=== PATIENT | male | born 1955 | race Caucasian/White ===

== ENCOUNTER 2020-05-26 13:23 | Outpatient (REF) | payer OTHER, SELFPAY ==
[2020-05-26 14:09] LABS: MANUAL DIFF FLAG NO
[2020-05-26 14:15] LABS: Basophils Percent Auto 0.4 % (0-2); Eosinophils Absolute Auto 0.2 X10*3/uL (0.0-0.4); Eosinophils Percent Auto 4.1 % (0-4); Hematocrit 44.2 % (42-52); Hemoglobin 14.2 g/dl (14.0-18.0); Imm Gran Abs Auto 0.05 X10*3/uL (0.00-0.03); Imm Gran Pct Auto 0.9 % (0.0-0.4); Lymphocytes Absolute Auto 1.4 X10*3/uL (1.2-4.9); Mean Corpuscular HGB Conc 32.1 g/dl (31.0-36.0); Mean Corpuscular Hemoglobin 28.6 pg (27.0-33.0); Mean Corpuscular Volume 88.9 fL (80-98); Monocytes Absolute Auto 0.7 X10*3/uL (0.1-1.2); Neutrophils Absolute Auto 3.1 X10*3/uL (2.0-8.3); Neutrophils Percent Auto 56.6 % (45-73); Platelet Count 361 X10*3/uL (160-400); Red Blood Count 4.97 X10*6/uL (4.60-5.80); Red Cell Distribution Width 12.5 % (11.0-16.0); White Blood Count 5.4 X10*3/uL (4.8-10.8)
[2020-05-26 14:39] LABS: Alanine Aminotransferase 12 U/L (0-40); Albumin Level 3.9 g/dL (3.5-5.0); Alkaline Phosphatase 93 U/L (39-117); Anion Gap 12 (12-20); Aspartate Amino Transferase 14 U/L (5-37); Bilirubin Total 0.8 mg/dL (0.0-1.0); Blood Urea Nitrogen 13 mg/dL (9-16); Calcium 8.9 mg/dL (8.4-10.2); Carbon Dioxide 31 mmol/L (22-29); Chloride 106 mmol/L (96-108); Cholesterol 162 mg/dL; Estimated Glomerular Filt Rate > 60; Glucose Random 89 mg/dL (60-115); HDL Cholesterol 45 mg/dL; LDL Cholesterol Calculated 101 mg/dl; Sodium 144 mmol/L (135-145); Total Protein 6.2 g/dL (6.5-8.0); Triglycerides 83 mg/dL
== END 2020-05-26 13:24 | disposition home or self-care (01) ==
LOC: HO.LAB 13:23
PROVIDERS: Visit Provider Internal Medicine Medical Oncology
DX: Z00.00 Encounter for general adult medical examination without abnormal findings (principal); F32.9 Major depressive disorder, single episode, unspecified; E78.5 Hyperlipidemia, unspecified
CPT/HCPCS: 36415; 80053; 80061; 85025

== ENCOUNTER 2020-06-04 11:59 | Outpatient (REF) | payer OTHER, SELFPAY | END 2020-06-04 12:00 | disposition home or self-care (01) | LOC: HO.LAB 11:59 | PROVIDERS: Visit Provider Internal Medicine Medical Oncology | DX: Z20.822 Contact with and (suspected) exposure to COVID-19 (principal) | CPT/HCPCS: 36415; C9803; U0003; U0005 ==

== ENCOUNTER 2020-09-07 10:43 | Outpatient (REF) | payer OTHER, SELFPAY ==
[2020-09-07 12:12] LABS: MANUAL DIFF FLAG NO
[2020-09-07 12:22] LABS: Basophils Percent Auto 0.7 % (0-2); Eosinophils Absolute Auto 0.3 X10*3/uL (0.0-0.4); Eosinophils Percent Auto 5.1 % (0-4); Hematocrit 45.9 % (42-52); Imm Gran Abs Auto 0.06 X10*3/uL (0.00-0.03); Lymphocytes Absolute Auto 1.6 X10*3/uL (1.2-4.9); Lymphocytes Percent Auto 26.5 % (20-40); Mean Corpuscular HGB Conc 32.7 g/dl (31.0-36.0); Mean Corpuscular Hemoglobin 29.4 pg (27.0-33.0); Mean Corpuscular Volume 89.8 fL (80-98); Mean Platelet Volume 10.4 fL (9.4-12.4); Monocytes Absolute Auto 0.7 X10*3/uL (0.1-1.2); Monocytes Percent Auto 10.6 % (2-11); Neutrophils Absolute Auto 3.4 X10*3/uL (2.0-8.3); Neutrophils Percent Auto 56.1 % (45-73); Platelet Count 297 X10*3/uL (160-400); Red Blood Count 5.11 X10*6/uL (4.60-5.80); White Blood Count 6.1 X10*3/uL (4.8-10.8)
[2020-09-07 12:52] LABS: Alanine Aminotransferase 18 U/L (0-40); Albumin Level 4.1 g/dL (3.5-5.0); Alkaline Phosphatase 69 U/L (39-117); Anion Gap 11 (12-20); Aspartate Amino Transferase 23 U/L (5-37); Bilirubin Total 0.5 mg/dL (0.0-1.0); Blood Urea Nitrogen 14 mg/dL (9-16); Calcium 9.1 mg/dL (8.4-10.2); Carbon Dioxide 30 mmol/L (22-29); Chloride 105 mmol/L (96-108); Cholesterol 211 mg/dL; Estimated Glomerular Filt Rate > 60; Glucose Fasting 81 mg/dL (60-99); HDL Cholesterol 60 mg/dL; LDL Cholesterol Calculated 132 mg/dl; Potassium 4.6 mmol/L (3.3-5.1); Sodium 141 mmol/L (135-145); Total Protein 6.1 g/dL (6.5-8.0); Triglycerides 98 mg/dL
[2020-09-07 13:10] LABS: Prostate Specific Antigen 5.45 ng/mL (<0.05-4.0)
== END 2020-09-07 10:44 | disposition home or self-care (01) ==
LOC: HO.LAB 10:43
PROVIDERS: PCP Internal Medicine Medical Oncology; Visit Provider Internal Medicine Medical Oncology
DX: R97.20 Elevated prostate specific antigen [PSA] (principal); E78.5 Hyperlipidemia, unspecified; Z12.5 Encounter for screening for malignant neoplasm of prostate
CPT/HCPCS: 36415; 80053; 80061; 84153; 85025

== ENCOUNTER 2021-09-11 08:59 | Outpatient (REF) | payer MEDICARE, SELFPAY ==
[2021-09-11 09:14] LABS: MANUAL DIFF FLAG NO
[2021-09-11 09:47] LABS: Basophils Absolute Auto 0.1 X10*3/uL (0.0-0.2); Basophils Percent Auto 0.9 % (0-2); Eosinophils Absolute Auto 0.4 X10*3/uL (0.0-0.4); Eosinophils Percent Auto 6.7 % (0-4); Hemoglobin 13.7 g/dl (14.0-18.0); Imm Gran Abs Auto 0.02 X10*3/uL (0.00-0.03); Imm Gran Pct Auto 0.4 % (0.0-0.4); Lymphocytes Absolute Auto 1.5 X10*3/uL (1.2-4.9); Lymphocytes Percent Auto 28.3 % (20-40); Mean Corpuscular HGB Conc 32.6 g/dl (31.0-36.0); Mean Corpuscular Hemoglobin 28.8 pg (27.0-33.0); Mean Corpuscular Volume 88.2 fL (80.0-98.0); Mean Platelet Volume 10.4 fL (9.4-12.4); Monocytes Absolute Auto 0.5 X10*3/uL (0.1-1.2); Monocytes Percent Auto 9.8 % (2-11); Neutrophils Absolute Auto 2.9 x10*3/uL (2.0-8.3); Neutrophils Percent Auto 53.9 % (45-73); Platelet Count 198 X10*3/uL (160-400); Red Blood Count 4.76 X10*6/uL (4.60-5.80); Red Cell Distribution Width 13.2 % (11.0-16.0); White Blood Count 5.4 X10*3/uL (4.8-10.8)
[2021-09-11 10:17] LABS: Alanine Aminotransferase 11 U/L (0-40); Albumin Level 3.9 g/dL (3.5-5.0); Alkaline Phosphatase 63 U/L (39-117); Anion Gap 11 (12-20); Aspartate Amino Transferase 14 U/L (5-37); Bilirubin Total 0.6 mg/dL (0.0-1.0); Blood Urea Nitrogen 11 mg/dL (9-16); Calcium 9.2 mg/dL (8.4-10.2); Carbon Dioxide 26 mmol/L (22-29); Chloride 106 mmol/L (96-108); Cholesterol 210 mg/dL; Estimated Glomerular Filt Rate > 60; Glucose Random 86 mg/dL (60-115); HDL Cholesterol 58 mg/dL; LDL Cholesterol Calculated 137 mg/dl; Potassium 4.1 mmol/L (3.3-5.1); Sodium 139 mmol/L (135-145); Total Protein 6.1 g/dL (6.5-8.0); Triglycerides 77 mg/dL
[2021-09-11 10:43] LABS: Prostate Specific Antigen 5.39 ng/mL (<0.05-4.0)
== END 2021-09-11 09:00 | disposition home or self-care (01) ==
LOC: HO.LAB 08:59
PROVIDERS: PCP Internal Medicine Medical Oncology; Visit Provider Internal Medicine Medical Oncology
DX: Z12.5 Encounter for screening for malignant neoplasm of prostate (principal); E78.5 Hyperlipidemia, unspecified
CPT/HCPCS: 36415; 80053; 80061; 84153; 85025

== ENCOUNTER 2022-02-22 08:22 | Outpatient (REF) | payer MEDICARE, SELFPAY ==
[2022-02-22 11:23] LABS: PSA,Total (Free>4and<10) 5.65 ng/mL (0.00-4.00)
[2022-02-23 11:11] LABS: Percent Free Prostate Spec Ag 23 % (calc) (>25); Prostate Specific Ag Total 4.4 ng/mL (< OR = 4.0)
== END 2022-02-22 08:23 | disposition home or self-care (01) ==
LOC: HO.10HDL 08:22
PROVIDERS: Visit Provider Internal Medicine Medical Oncology
DX: Z00.00 Encounter for general adult medical examination without abnormal findings (principal); Z12.5 Encounter for screening for malignant neoplasm of prostate
CPT/HCPCS: 36415; 84153; 84154

== ENCOUNTER 2022-09-07 08:27 | Outpatient (REF) | payer MEDICARE, SELFPAY ==
[2022-09-07 08:41] LABS: MANUAL DIFF FLAG NO
[2022-09-07 08:51] LABS: Basophils Percent Auto 0.7 % (0-2); Eosinophils Absolute Auto 0.3 X10*3/uL (0.0-0.4); Eosinophils Percent Auto 4.7 % (0-4); Hematocrit 43.6 % (42.0-52.0); Hemoglobin 14.3 g/dl (14.0-18.0); Imm Gran Abs Auto 0.02 X10*3/uL (0.00-0.03); Imm Gran Pct Auto 0.4 % (0.0-0.4); Lymphocytes Absolute Auto 1.6 X10*3/uL (1.2-4.9); Lymphocytes Percent Auto 29.9 % (20-40); Mean Corpuscular HGB Conc 32.8 g/dl (31.0-36.0); Mean Corpuscular Hemoglobin 29.2 pg (27.0-33.0); Mean Corpuscular Volume 89.2 fL (80.0-98.0); Mean Platelet Volume 10.2 fL (9.4-12.4); Monocytes Absolute Auto 0.6 X10*3/uL (0.1-1.2); Monocytes Percent Auto 11.8 % (2-11); Neutrophils Absolute Auto 2.8 x10*3/uL (2.0-8.3); Neutrophils Percent Auto 52.5 % (45-73); Platelet Count 196 X10*3/uL (160-400); Red Blood Count 4.89 X10*6/uL (4.60-5.80); Red Cell Distribution Width 13.6 % (11.0-16.0); White Blood Count 5.4 X10*3/uL (4.8-10.8)
[2022-09-07 09:36] LABS: Alanine Aminotransferase 13 U/L (0-40); Albumin Level 3.8 g/dL (3.5-5.0); Alkaline Phosphatase 70 U/L (39-117); Anion Gap 10 (12-20); Aspartate Amino Transferase 16 U/L (5-37); Bilirubin Total 0.8 mg/dL (0.0-1.0); Blood Urea Nitrogen 14 mg/dL (9-16); Calcium 8.7 mg/dL (8.4-10.2); Carbon Dioxide 27 mmol/L (22-29); Chloride 108 mmol/L (96-108); Cholesterol 202 mg/dL; Estimated Glomerular Filt Rate 59; Glucose Fasting 86 mg/dL (60-99); HDL Cholesterol 55 mg/dL; LDL Cholesterol Calculated 132 mg/dl; Potassium 4.3 mmol/L (3.3-5.1); Sodium 141 mmol/L (135-145); Total Protein 5.8 g/dL (6.5-8.0); Triglycerides 77 mg/dL
[2022-09-08 12:59] LABS: Free Prostate Spec Ag 1.3 ng/mL; Percent Free Prostate Spec Ag 30 % (calc) (>25); Prostate Specific Ag Total 4.4 ng/mL (< OR = 4.0)
== END 2022-09-07 08:28 | disposition home or self-care (01) ==
LOC: HO.LAB 08:27
PROVIDERS: PCP Internal Medicine Medical Oncology; Visit Provider Internal Medicine Medical Oncology
DX: Z12.5 Encounter for screening for malignant neoplasm of prostate (principal); R97.20 Elevated prostate specific antigen [PSA]; E78.5 Hyperlipidemia, unspecified
CPT/HCPCS: 36415; 80053; 80061; 84154; 85025

== ENCOUNTER → 2022-09-19 10:03 | Outpatient (BNVA) | payer MEDICARE, SELFPAY | PROVIDERS: PCP Internal Medicine Medical Oncology; Visit Provider Nurse Practitioner Family | DX: N52.9 Male erectile dysfunction, unspecified (principal); R35.0 Frequency of micturition; R35.1 Nocturia | CPT/HCPCS: 51798; 99202 ==

== ENCOUNTER 2022-11-08 09:59 | Outpatient (REF) | payer MEDICARE, SELFPAY ==
--- NOTE | ~2022-11-08 | US_ITS ---
EXAMINATION: US RETROPERITONEAL COMPLETE (RENAL) CLINICAL INFORMATION: Nocturia. COMPARISON: None available. TECHNIQUE: Real-time imaging of the kidneys and bladder. FINDINGS: RIGHT KIDNEY: 10.5 x 3.8 x 4.0 cm (SAG x AP x TRV). The kidney is normal in size, contour, and echogenicity. Renal cortical thickness is normal. No calculi or focal parenchymal lesions. No hydronephrosis. LEFT KIDNEY: 10.0 x 4.7 x 4.8 cm (SAG x AP x TRV). The kidney is normal in size, contour, and echogenicity. Renal cortical thickness is normal. No calculi or focal parenchymal lesions. No hydronephrosis. BLADDER: Diffuse wall thickening with trabeculations. Bilateral ureteral jets are demonstrated. Prevoid bladder volume is 249 mL. Postvoid bladder volume is 95.2 mL. ADDITIONAL FINDINGS: Enlarged prostate, volume of 91.4 mL. US/US retroperitoneal comp IMPRESSION: 1. No nephrolithiasis or hydronephrosis. 2. Diffuse bladder wall thickening with trabeculations, likely related with outlet obstruction in the setting of prostatomegaly. Correlation with urinalysis could be obtained as clinically indicated. 3. Increased post void residual volume in the urinary bladder, suggesting chronic outlet obstruction. 4. Enlarged prostate.
== END 2022-11-08 10:00 | disposition home or self-care (01) ==
LOC: HO.US 09:59
PROVIDERS: PCP Internal Medicine Medical Oncology; Visit Provider Nurse Practitioner Family
DX: R35.1 Nocturia (principal); R35.0 Frequency of micturition
CPT/HCPCS: 76770

== ENCOUNTER 2022-12-01 15:35 | Outpatient (AMB) | payer MEDICARE, SELFPAY ==
--- NOTE | 2022-12-01 15:36 | MHC.OFFVIS ---
Intake Intake Visit Reasons: 6w/US(set) Intake Note: Patient presents for follow up visit BPH/Erectile Dysfunction/ultrasound (imaging 11/08) Urology Medications: d/c terazosin, cialis, finasteride Blood Thinner: none PVR: 0ml's Media Professional Required: No Accompanied by: Self / Same As Patient Allergies amoxicillin [Amoxicillin] Allergy (Mild, Unverified 12/01/22 20:39) RASH Medication List - Last Reconciled 12/01/22 by RONNA Ponce- bupropion HCl 100 mg PO BID finasteride 5 mg PO DAILY 90 days tadalafil (Cialis) 20 mg PO DAILY PRN 90 days tadalafil (Cialis) 5 mg PO DAILY 90 days HPI HPI Comments History of Present Illness Details Og is a pleasant 67-year-old male patient of Dr. Aranda. He presents to the office today for follow-up. Of note, patient was seen approximately 2 months ago as a new patient for erectile dysfunction the and urinary issues at which time a retroperitoneal ultrasound was ordered for further assessment evaluation in the patient was started on 5 mg of Cialis daily as well as a prescription provided for p.r.n. Cialis on demand 1 hour prior to sexual activity. In discussion with the patient today reports to be doing and feeling well. Recent retroperitoneal ultrasound results reviewed with the patient today. Bilateral kidneys with no calculi, lesions, or hydronephrosis noted. Diffuse wall thickening with trabeculations noted to the bladder. Pre void bladder volume is approximately 250 mL. Postvoid bladder volume is approximately 95 mL. Enlarged prostate with a volume of 91 mL. PSAs are as follows... 09/04--5.5 09/05--5.4 03/08--5.7 03/08--4.4 percent free PSA 23% 09/06--4.4 percent free PSA 30% Discussed at length potential causes for elevated PSA. When asked patient denies any known family history of prostate cancer. Will continue with finasteride 5 mg daily. He discusses upcoming trip to [facility] 02/28. He he was previously on terazosin at 2 mg and increase to 5 mg to assist with lower urinary tract symptoms however did not find this helpful at which time terazosin was discontinued and the patient is now on low-dose 5 mg of Cialis daily. He does report ongoing issues with lower urinary tract symptoms however finds symptoms to be intermittent and at times not bothersome. He otherwise denies urinary urgency, incontinence, hematuria, dysuria, foul smelling urine, changes to urinary stream, flank pain, fever, and or chills. In office urinalysis results reviewed with the patient today. PVR 0 mL. He discusses residential and going down to [place] frequently as he has a boat there. He otherwise denies any issues or concerns at this time. Review of Systems Const All systems reviewed & are unremarkable except as noted in HPI and below Eyes Reports no additional complaints ENT Reports no additional complaints Card Reports no additional complaints Resp Reports no additional complaints GI Reports no additional complaints Reports as per HPI Musc Reports no additional complaints Neuro Reports no additional complaints Psych Reports no additional complaints Endo Reports no additional complaints Asael/Lymph Reports no additional complaints Aller/Immun Reports no additional complaints Physical Exam Const General: cooperative, healthy appearing, comfortable, no acute distress, well developed, alert and awake Nutritional Appearance: average body habitus Orientation/consciousness: patient oriented x3 Limitations: no limitations HEENT Head: Yes normal to inspection, Yes normocephalic and Yes atraumatic Ears: hearing grossly normal bilaterally Eyes General: appearance normal, both eyes and all related structures Neck Neck: Yes normal visual inspection and Yes trachea midline Chest Chest palpation & inspection: normal inspection of the chest Resp Effort & Inspection: normal respiratory effort and able to speak in complete sentences Cardio Rate: regular rate GI Inspection: Yes normal to inspection General: Yes no CVA tenderness Back/Spine/Pelvis Back: no CVA tenderness Skin General skin exam: no rashes or lesions noted Neuro General: patient oriented x3 Extrem General: Yes normal to inspection Psych Appearance: grossly normal and well kempt Mental Status: mental status grossly normal Speech and movement: Normal speech and movement present and Clear speech present Affect: normal affect Attitude: cooperative Thought process: Normal thought process present Thought content: Normal thought content present Insight: Good insight present (Psych) Judgement: Good judgement present (Psych) Office Procedures Post Void Residual Post Residual Void Post Void Residual (PVR): 0 [id number]-[id number] Void Residual by ultrasound Results AMB Urinalysis, Automated UA Leukoctes 15 Judson/uL Last Edit by Ben Hackett on 12/01/22 15:52 UA Nitrite Last Edit by Ben Hackett on 12/01/22 15:52 UA Urobilinogen 0.2 mg/dL Last Edit by Monford [employer] System[employer] on 12/01/22 15:52 UA Protein 15 mg/dL Last Edit by [employer] on 12/01/22 15:52 UA pH 6.0 Last Edit by PERORAe Propellernixon on 12/01/22 15:52 UA Blood 0 Sam/uL Last Edit by PERORAe Propellernixon on 12/01/22 15:52 UA Specific [place] 1.030 Last Edit by [employer] on 12/01/22 15:52 UA Ketone Last Edit by Deolan on 12/01/22 15:52 UA Bilirubin 0 mg/dL Last Edit by [employer] on 12/01/22 15:52 UA Glucose 0 mg/dL Last Edit by [employer] on 12/01/22 15:52 Results Reviewed Results Reviewed: Laboratory Last Values Urine pH (Auto) 6.0 12/01/22 15:38 Specific [place] (Auto) 1.030 12/01/22 15:38 Urine Protein (Auto) 15 mg/dL 12/01/22 15:38 Glucose (UA)(Auto) 0 mg/dL 12/01/22 15:38 Urine Blood (Auto) 0 Sam/uL 12/01/22 15:38 Urine Bilirubin (Auto) 0 mg/dL 12/01/22 15:38 Urine Urobilinogen (Auto) 0.2 mg/dL 12/01/22 15:38 Leukocyte Esterase (Auto) 15 Judson/uL 12/01/22 15:38 Date of Service: 11/08/22 EXAMINATION: US RETROPERITONEAL COMPLETE (RENAL) FINDINGS: RIGHT KIDNEY: 10.5 x 3.8 x 4.0 cm (SAG x AP x TRV). The kidney is normal in size, contour, and echogenicity. Renal cortical thickness is normal. No calculi or focal parenchymal lesions. No hydronephrosis. LEFT KIDNEY: 10.0 x 4.7 x 4.8 cm (SAG x AP x TRV). The kidney is normal in size, contour, and echogenicity. Renal cortical thickness is normal. No calculi or focal parenchymal lesions. No hydronephrosis. BLADDER: Diffuse wall thickening with trabeculations. Bilateral ureteral jets are demonstrated. Prevoid bladder volume is 249 mL. Postvoid bladder volume is 95.2 mL. ADDITIONAL FINDINGS: Enlarged prostate, volume of 91.4 mL. IMPRESSION: 1.? No nephrolithiasis or hydronephrosis. 2.? Diffuse bladder wall thickening with trabeculations, likely related with outlet obstruction in the setting of prostatomegaly. Correlation with urinalysis could be obtained as clinically indicated. 3.? Increased post void residual volume in the urinary bladder, suggesting chronic outlet obstruction. 4.? Enlarged prostate. Assessment & Plan Assessment & Plan (1) Elevated PSA: Code(s): R97.20 - Elevated prostate specific antigen [PSA] (2) Enlarged prostate: Code(s): N40.0 - Benign prostatic hyperplasia without lower urinary tract symptoms (3) Lower urinary tract symptoms: Code(s): R39.9 - Unspecified symptoms and signs involving the genitourinary system (4) Erectile dysfunction: Code(s): N52.9 - Male erectile dysfunction, unspecified (5) Nocturia: Code(s): R35.1 - Nocturia (6) Bladder wall thickening: Code(s): N32.89 - Other specified disorders of bladder Plan In office urinalysis results reviewed with the patient today; as noted above. PVR 0 mL. Continue 5 mg of Cialis daily and p.r.n. for sexual activity; refills provided. Will obtain PSA in 3 months for further assessment evaluation. Continue finasteride 5 mg daily as discussed and prescribed. Discussed near future in office cystoscopy if symptoms persist and/or worsen. Discussed bladder triggers/irritants. Discussed limiting fluids 3-4 hours prior to bed to assist with decreasing episodes of nocturia. Follow-up in 3 months with lab to be completed prior; or sooner with any issues, concerns, and or questions. Orders: Orders Prostate Specific Antigen 3 Months R97.20 - Elevated prostate specific antigen [PSA] AMB Urinalysis Automated Today Z13.9 - Encounter for screening, unspecified AMB Post Void Residual by ultrasound Today R35.0 - Frequency of micturition Medications: Refilled tadalafil (Cialis) administer approximately 30-60 min before sexual activity; do not use more than 1 dose per 24hrs [facility] DRBrenden [id number] 20 mg PO DAILY PRN 20 tabs 3RF sexual activity 90 days tadalafil (Cialis) DONI N Group [facility] DR33 [id number] 5 mg PO DAILY 90 tabs 3RF 90 days Patient Instructions: The patient had an opportunity to ask questions regarding the treatment plan. All questions were answered. Physical exam, labs, and imaging were discussed and reviewed in detail. As well as risks, benefits, and discussion of treatment choices. No major barriers to understanding were identified. The patient expressed understanding and agreement with the above treatment plan. The patient was made aware they should contact our office by phone for worsening of their current condition, the appearance of new symptoms, or with any questions or concerns. Compliance is encouraged with any medications and follow up testing that is ordered. It is a privilege to be allowed the opportunity to participate in? your urological care.? Again, if you have any questions or concerns If you have any questions or concerns please do not hesitate to contact me. The office is [phone]. This note is constructed using voice recognition software. While every effort has been made to ensure accuracy feature writer errors may have been included. Yours sincerely, ANTHONY Ponce Coding Level of Care Code Est Pt Level 3 (58156) Diagnoses Elevated PSA R97.20 Enlarged prostate N40.0 Lower urinary tract symptoms R39.9 Erectile dysfunction N52.9 Nocturia R35.1 Bladder wall thickening N32.89 CPT Codes Post Residual Void - PVR CPT Code: 96356-Lvhh Void Residual by ultrasound ([id number])
== END 2022-12-01 16:22 | disposition home or self-care (01) ==
PROVIDERS: PCP Internal Medicine Medical Oncology; Visit Provider Nurse Practitioner Family
DX: R97.20 Elevated prostate specific antigen [PSA] (principal); N40.0 Benign prostatic hyperplasia without lower urinary tract symptoms; R39.9 Unspecified symptoms and signs involving the genitourinary system; N52.9 Male erectile dysfunction, unspecified; R35.1 Nocturia; N32.89 Other specified disorders of bladder
CPT/HCPCS: 99213

== ENCOUNTER → 2022-12-01 15:35 | Outpatient (BNVA) | payer MEDICARE, SELFPAY | PROVIDERS: PCP Internal Medicine Medical Oncology; Visit Provider Nurse Practitioner Family | DX: N52.9 Male erectile dysfunction, unspecified (principal); N40.0 Benign prostatic hyperplasia without lower urinary tract symptoms; N32.89 Other specified disorders of bladder; R97.20 Elevated prostate specific antigen [PSA]; R39.9 Unspecified symptoms and signs involving the genitourinary system; R35.1 Nocturia | CPT/HCPCS: 51798; 81003; 99212 ==

== ENCOUNTER 2023-02-16 09:15 | Outpatient (REF) | payer MEDICARE, SELFPAY ==
[2023-02-16 10:27] LABS: Prostate Specific Antigen 3.19 ng/mL (<0.05-4.0)
== END 2023-02-16 09:16 | disposition home or self-care (01) ==
LOC: HO.LAB 09:15
PROVIDERS: PCP Internal Medicine Medical Oncology; Visit Provider Nurse Practitioner Family
DX: R97.20 Elevated prostate specific antigen [PSA] (principal); Z12.5 Encounter for screening for malignant neoplasm of prostate
CPT/HCPCS: 36415; 84153

== ENCOUNTER 2023-02-17 15:33 | Outpatient (AMB) | payer MEDICARE, SELFPAY ==
--- NOTE | 2023-02-17 15:45 | A.OFFVIS_ITS ---
Intake Intake Visit Reasons: follow up/PSA Intake Note: Patient is Present for Follow Up PSA/PVR Urology Medication: Finasteride, Tadalafil Antibiotic Allergies: Amoxicillin Blood Thinners: None Pharmacy: [facility] PVR: 0ml Allergies amoxicillin [Amoxicillin] Allergy (Mild, Verified 02/17/23 15:57) RASH Medication List - Last Reconciled 02/17/23 by RONNA Ponce- bupropion HCl 100 mg PO BID finasteride 5 mg PO DAILY 90 days tadalafil (Cialis) 5 mg PO DAILY 90 days tadalafil (Cialis) 20 mg PO DAILY PRN 90 days HPI HPI Comments History of Present Illness Details Og is a pleasant 67-year-old male patient of Dr. Aranda. He presents to the office today for follow-up his elevated PSA. In discussion with the patient today he reports to be doing and feeling well. He discusses at length his upcoming trip to [facility] for the next 6 months. Recent PSA results reviewed with the patient today as noted below. Previous workup has included a retroperitoneal ultrasound noting bilateral kidneys with no calculi, lesions, or hydronephrosis noted. Diffuse wall thickening with trabeculations noted to the bladder. Pre void bladder volume is approximately 250 mL. Postvoid bladder volume is approximately 95 mL. Enlarged prostate with a volume of 91 mL. 09/04--5.5 09/05--5.4 03/08--5.7 03/08--4.4 percent free PSA 23% 09/06--4.4 percent free PSA 30% 03/09--3.2 When asked patient reports compliance with finasteride 5 mg daily. He currently denies any bothersome urinary issues or concerns. He denies urinary urgency, incontinence, hematuria, dysuria, foul smelling urine, changes to urinary stream, flank pain, fever, and or chills. In office urinalysis results reviewed with the patient today. PVR 0 mL. He otherwise denies any issues or concerns at this time. Review of Systems Const All systems reviewed & are unremarkable except as noted in HPI and below Eyes Reports no additional complaints ENT Reports no additional complaints Card Reports no additional complaints Resp Reports no additional complaints GI Reports no additional complaints Reports as per HPI Musc Reports no additional complaints Neuro Reports no additional complaints Psych Reports no additional complaints Endo Reports no additional complaints Asael/Lymph Reports no additional complaints Aller/Immun Reports no additional complaints Physical Exam Const General: cooperative, healthy appearing, comfortable, no acute distress, well developed, alert and awake Nutritional Appearance: average body habitus Orientation/consciousness: patient oriented x3 Limitations: no limitations HEENT Head: Yes normal to inspection, Yes normocephalic and Yes atraumatic Ears: hearing grossly normal bilaterally Eyes General: appearance normal, both eyes and all related structures Neck Neck: Yes normal visual inspection and Yes trachea midline Chest Chest palpation & inspection: normal inspection of the chest Resp Effort & Inspection: normal respiratory effort and able to speak in complete sentences Cardio Rate: regular rate GI Inspection: Yes normal to inspection General: Yes no CVA tenderness Back/Spine/Pelvis Back: no CVA tenderness Skin General skin exam: no rashes or lesions noted Neuro General: patient oriented x3 Extrem General: Yes normal to inspection Psych Appearance: grossly normal and well kempt Mental Status: mental status grossly normal Speech and movement: Normal speech and movement present and Clear speech present Affect: normal affect Attitude: cooperative Thought process: Normal thought process present Thought content: Normal thought content present Insight: Good insight present (Psych) Judgement: Good judgement present (Psych) Office Procedures Post Void Residual Post Residual Void Post Void Residual (PVR): 0 [id number]-[id number] Void Residual by ultrasound Results AMB Urinalysis, Automated UA Leukoctes 70 Judson/uL Last Edit by ARPITA Crenshaw on 02/17/23 15:56 UA Nitrite Negative Last Edit by Za Siddiqui [facility] on 02/17/23 15:56 UA Urobilinogen 0.2 mg/dL Last Edit by ARPITA Crenshaw on 02/17/23 15:5 6 UA Protein 0 mg/dL Last Edit by Za Siddiqui [facility] on 02/17/23 15:56 UA pH 6.0 Last Edit by ARPITA Crenshaw on 02/17/23 15:56 UA Blood 0 Sam/uL Last Edit by Za Siddiqui [facility] on 02/17/23 15:56 UA Specific [place] 1.030 Last Edit by MIGUEL Crenshaw on 02/17/23 15: 56 UA Ketone Negative Last Edit by MIGUEL Crenshaw on 02/17/23 15:56 UA Bilirubin 0 mg/dL Last Edit by ARPITA Crenshaw on 02/17/23 15:56 UA Glucose 0 mg/dL Last Edit by ARPITA Crenshaw on 02/17/23 15:56 Results Reviewed Results Reviewed: Laboratory Last Values Urine pH (Auto) 6.0 02/17/23 15:49 Specific [place] (Auto) 1.030 02/17/23 15:49 Urine Protein (Auto) 0 mg/dL 02/17/23 15:49 Glucose (UA)(Auto) 0 mg/dL 02/17/23 15:49 Urine Ketones (Auto) Negative 02/17/23 15:49 Urine Blood (Auto) 0 Sam/uL 02/17/23 15:49 Urine Nitrite (Auto) Negative 02/17/23 15:49 Urine Bilirubin (Auto) 0 mg/dL 02/17/23 15:49 Urine Urobilinogen (Auto) 0.2 mg/dL 02/17/23 15:49 Leukocyte Esterase (Auto) 70 Judson/uL 02/17/23 15:49 Assessment & Plan Assessment & Plan (1) Bladder wall thickening: Code(s): N32.89 - Other specified disorders of bladder (2) Enlarged prostate: Code(s): N40.0 - Benign prostatic hyperplasia without lower urinary tract symptoms (3) Elevated PSA: Code(s): R97.20 - Elevated prostate specific antigen [PSA] (4) Erectile dysfunction: Code(s): N52.9 - Male erectile dysfunction, unspecified Plan In office urinalysis results reviewed with the patient today; as noted above. PVR 0 mL. Continue finasteride 5 mg daily as discussed and prescribed. Refills on urological medications provided. Patient denies any bothersome urinary issues or concerns at this time. Recent PSA results reviewed with the patient today. Educated, encouraged, instructed on the importance of drinking plenty of water daily. Will obtain PSA in 6 months Follow-up with labs to be completed prior; once back from [facility] with PSA; or sooner with any issues, concerns, and or questions. Orders: Orders AMB Urinalysis Automated Today Z13.9 - Encounter for screening, unspecified Prostate Specific Antigen 6 Months N52.9 - Male erectile dysfunction, unspecified, R97.20 - Elevated prostate specific antigen [PSA] AMB Post Void Residual by ultrasound Today R39.9 - Unspecified symptoms and signs involving the genitourinary system Medications: Refilled tadalafil (Cialis) administer approximately 30-60 min before sexual activity; do not use more than 1 dose per 24hrs [facility] Group [facility] DR33 [id number] 20 mg PO DAILY PRN 20 tabs 3RF sexual activity 90 days finasteride 5 mg PO DAILY 90 tabs 3RF 90 days N13.8 - Other obstructive and reflux uropathy, N40.1 - Benign prostatic hyperplasia with lower urinary tract s ymptoms, R33.9 - Retention of urine, unspecified tadalafil (Cialis) [facility] Group [facility] DR33 [id number] 5 mg PO DAILY 90 tabs 3RF 90 days Patient Instructions: The patient had an opportunity to ask questions regarding the treatment plan. All questions were answered. Physical exam, labs, and imaging were discussed and reviewed in detail. As well as risks, benefits, and discussion of treatment choices. No major barriers to understanding were identified. The patient expres sed understanding and agreement with the above treatment plan. The patient was made aware they should contact our office by phone for worsening of their current condition, the appearance of new symptoms, or with any questions or concerns. Compliance is encouraged with any medications and follow up testing that is ordered. It is a privilege to be allowed the opportunity to participate in? your urological care.? Again, if you have any questions or concerns If you have any questions or concerns please do not hesitate to contact me. The office is [phone]. This note is constructed using voice recognition software. While every effort has been made to ensure accuracy forest resources professor errors may have been included. Yours sincerely, ANTHONY Ponce Coding Level of Care Code Est Pt Level 3 (86415) Diagnoses Bladder wall thickening N32.89 Enlarged prostate N40.0 Elevated PSA R97.20 Erectile dysfunction N52.9 CPT Codes Post Residual Void - PVR CPT Code: 40011-Gnmx Void Residual by ultrasound ([id number])
== END 2023-02-17 16:22 | disposition home or self-care (01) ==
PROVIDERS: PCP Internal Medicine Medical Oncology; Visit Provider Nurse Practitioner Family
DX: N32.89 Other specified disorders of bladder (principal); N40.0 Benign prostatic hyperplasia without lower urinary tract symptoms; R97.20 Elevated prostate specific antigen [PSA]; N52.9 Male erectile dysfunction, unspecified; Z13.9 Encounter for screening, unspecified
CPT/HCPCS: 99213

== ENCOUNTER → 2023-02-17 15:33 | Outpatient (BNVA) | payer MEDICARE, SELFPAY | PROVIDERS: PCP Internal Medicine Medical Oncology; Visit Provider Nurse Practitioner Family | DX: N32.89 Other specified disorders of bladder (principal); N40.0 Benign prostatic hyperplasia without lower urinary tract symptoms; N52.9 Male erectile dysfunction, unspecified; R97.20 Elevated prostate specific antigen [PSA] | CPT/HCPCS: 51798; 81003; 99212 ==

== ENCOUNTER 2023-09-12 10:33 | Outpatient (REF) | payer MEDICARE, SELFPAY ==
[2023-09-12 10:53] LABS: MANUAL DIFF FLAG NO
[2023-09-12 11:06] LABS: Basophils Absolute Auto 0.1 X10*3/uL (0.0-0.2); Basophils Percent Auto 0.9 % (0-2); Eosinophils Absolute Auto 0.6 X10*3/uL (0.0-0.4); Eosinophils Percent Auto 9.1 % (0-4); Hematocrit 45.1 % (42.0-52.0); Imm Gran Abs Auto 0.03 X10*3/uL (0.00-0.03); Imm Gran Pct Auto 0.5 % (0.0-0.4); Lymphocytes Absolute Auto 1.6 X10*3/uL (1.2-4.9); Lymphocytes Percent Auto 24.5 % (20-40); Mean Corpuscular HGB Conc 33.3 g/dl (31.0-36.0); Mean Corpuscular Hemoglobin 29.1 pg (27.0-33.0); Mean Corpuscular Volume 87.6 fL (80.0-98.0); Mean Platelet Volume 9.7 fL (9.4-12.4); Monocytes Absolute Auto 0.7 X10*3/uL (0.1-1.2); Monocytes Percent Auto 10.8 % (2-11); Neutrophils Absolute Auto 3.5 x10*3/uL (2.0-8.3); Neutrophils Percent Auto 54.2 % (45-73); Platelet Count 206 X10*3/uL (160-400); Red Blood Count 5.15 X10*6/uL (4.60-5.80); Red Cell Distribution Width 13.5 % (11.0-16.0); White Blood Count 6.5 X10*3/uL (4.8-10.8)
[2023-09-12 11:37] LABS: Alanine Aminotransferase 16 U/L (0-40); Alkaline Phosphatase 70 U/L (39-117); Anion Gap 10 (12-20); Aspartate Amino Transferase 17 U/L (5-37); Bilirubin Total 0.7 mg/dL (0.0-1.0); Blood Urea Nitrogen 10 mg/dL (9-16); Calcium 9.3 mg/dL (8.4-10.2); Carbon Dioxide 30 mmol/L (22-29); Chloride 106 mmol/L (96-108); Cholesterol 224 mg/dL (<200); Estimated Glomerular Filt Rate > 60; Glucose Fasting 84 mg/dL (60-99); HDL Cholesterol 67 mg/dL (>40); LDL Cholesterol Calculated 143 mg/dL (<100); Potassium 4.8 mmol/L (3.3-5.1); Sodium 141 mmol/L (135-145); Total Protein 6.4 g/dL (6.5-8.0); Triglycerides 71 mg/dL (<150)
[2023-09-12 11:57] LABS: Prostate Specific Antigen 3.09 ng/mL (<0.05-4.0)
== END 2023-09-12 10:34 | disposition home or self-care (01) ==
LOC: HO.LAB 10:33
PROVIDERS: PCP Internal Medicine Medical Oncology; Visit Provider Internal Medicine Medical Oncology
DX: Z12.5 Encounter for screening for malignant neoplasm of prostate (principal); N40.0 Benign prostatic hyperplasia without lower urinary tract symptoms; E78.5 Hyperlipidemia, unspecified
CPT/HCPCS: 36415; 80053; 80061; 84153; 85025

== ENCOUNTER 2023-09-19 13:32 | Outpatient (AMB) | payer MEDICARE, SELFPAY ==
--- NOTE | 2023-09-19 13:38 | MHC.OFFVIS ---
Intake Visit Reasons: 7m/PSA Intake Note: Patient is Present for Follow Up PSA/PVR PSA: 3.09 Urology Medication: Finasteride, Tadalafil Antibiotic Allergies: Amoxicillin Blood Thinners: None Pharmacy: [facility] PVR: 31ml's Software Tools Developer Required: No Accompanied by: Self / Same As Patient Allergies amoxicillin [Amoxicillin] Allergy (Mild, Verified 09/19/23 22:04) RASH Medication List - Last Reconciled 09/19/23 by ANTHONY Ponce bupropion HCl 100 mg PO BID finasteride 5 mg PO DAILY 90 days tadalafil (Cialis) 5 mg PO DAILY 90 days tadalafil (Cialis) 20 mg PO DAILY PRN 90 days HPI Comments Details: Og is a pleasant 67-year-old male patient of Dr. Aranda. He presents to the office today for follow-up his elevated PSA and erectile dysfunction. In discussion with the patient today he reports to be doing and feeling well. He discusses at length his recent travel to [facility] as well as [facility]. He discusses having experienced episodes of erectile dysfunction while on vacation despite daily Cialis with on demand dosing. He reports at times he was unable to obtain an erection however there were also times he was able to obtain and maintain his erections that were adequate for penetration. Recent PSA results reviewed with the patient today as noted and trended below. Previous workup has included a retroperitoneal ultrasound noting bilateral kidneys with no calculi, lesions, or hydronephrosis noted. Diffuse wall thickening with trabeculations noted to the bladder. Pre void bladder volume is approximately 250 mL. Postvoid bladder volume is approximately 95 mL. Enlarged prostate with a volume of 91 mL. 09/04 5.5, 09/05 5.4, 03/08 5.7, 03/08 4.4 percent free PSA 23%, 09/06 4.4 percent free PSA 30%, 03/09 3.2, 09/07 3.1 When asked patient reports compliance with finasteride 5 mg daily. He does report episodes of urinary urgency and frequency however does not find this bothersome at this time. He otherwise denies incontinence, hematuria, dysuria, foul smelling urine, changes to urinary stream, flank pain, fever, and or chills. In office urinalysis results reviewed with the patient today. PVR 31mL. He discusses his upcoming appointment with his PCP on Monday to discuss new onset rash he has been experiencing to his eyes, groin folds, antecubital fossas. He otherwise denies any issues or concerns at this time. Review of Systems Const All systems reviewed & are unremarkable except as noted in HPI and below Eyes Reports as per HPI ENT Reports no additional complaints Card Reports no additional complaints Resp Reports no additional complaints GI Reports no additional complaints Reports as per HPI Musc Reports no additional complaints Skin/Breast Reports as per HPI Neuro Reports no additional complaints Psych Reports no additional complaints Endo Reports no additional complaints Asael/Lymph Reports no additional complaints Aller/Immun Reports no additional complaints Physical Exam Const General: cooperative, healthy appearing, comfortable, no acute distress, well developed, alert and awake Nutritional Appearance: average body habitus Orientation/consciousness: patient oriented x3 Limitations: no limitations HEENT Head: Yes normal to inspection, Yes normocephalic and Yes atraumatic Ears: hearing grossly normal bilaterally Eyes General: appearance normal, both eyes and all related structures Neck Neck: Yes normal visual inspection and Yes trachea midline Chest Chest palpation & inspection: normal inspection of the chest Resp Effort & Inspection: normal respiratory effort and able to speak in complete sentences Cardio Rate: regular rate GI Inspection: Yes normal to inspection General: Yes no CVA tenderness Back/Spine/Pelvis Back: no CVA tenderness Skin General skin exam: no rashes or lesions noted Neuro General: patient oriented x3 Extrem General: Yes normal to inspection Psych Appearance: grossly normal and well kempt Mental Status: mental status grossly normal Speech and movement: Normal speech and movement present and Clear speech present Affect: normal affect Attitude: cooperative Thought process: Normal thought process present Thought content: Normal thought content present Insight: Fair insight present (Psych) Judgement: Fair judgement present (Psych) Office Procedures Post Void Residual Post Residual Void Post Void Residual (PVR): 31 23217-Ohsp Void Residual by ultrasound Results AMB Urinalysis, Automated UA Leukoctes 15 Judson/uL Last Edit by Ben Hackett on 09/19/23 13:59 UA Nitrite Negative Last Edit by Ben Hackett on 09/19/23 13:59 UA Urobilinogen 0.2 mg/dL Last Edit by Ben Hackett on 09/19/23 13:59 UA Protein 0 mg/dL Last Edit by Ben Hackett on 09/19/23 13:59 UA pH 5.5 Last Edit by Ben Hackett on 09/19/23 13:59 UA Blood 0 Sam/uL Last Edit by Ben Hackett on 09/19/23 13:59 UA Specific [place] 1.020 Last Edit by Ben Hackett on 09/19/23 13:59 UA Ketone Negative Last Edit by Ben Hackett on 09/19/23 13:59 UA Bilirubin 0 mg/dL Last Edit by Ben Hackett on 09/19/23 13:59 UA Glucose 0 mg/dL Last Edit by Ben Hackett on 09/19/23 13:59 Results Reviewed Results Reviewed: Laboratory Last Values Urine pH (Auto) 5.5 09/19/23 13:41 Specific [place] (Auto) 1.020 09/19/23 13:41 Urine Protein (Auto) 0 mg/dL 09/19/23 13:41 Glucose (UA)(Auto) 0 mg/dL 09/19/23 13:41 Urine Ketones (Auto) Negative 09/19/23 13:41 Urine Blood (Auto) 0 Sam/uL 09/19/23 13:41 Urine Nitrite (Auto) Negative 09/19/23 13:41 Urine Bilirubin (Auto) 0 mg/dL 09/19/23 13:41 Urine Urobilinogen (Auto) 0.2 mg/dL 09/19/23 13:41 Leukocyte Esterase (Auto) 15 Judson/uL 09/19/23 13:41 Assessment & Plan Assessment & Plan (1) Erectile dysfunction: Code(s): N52.9 - Male erectile dysfunction, unspecified Category: Medical (2) Bladder wall thickening: Code(s): N32.89 - Other specified disorders of bladder Category: Medical (3) Lower urinary tract symptoms: Code(s): R39.9 - Unspecified symptoms and signs involving the genitourinary system Category: Medical (4) Enlarged prostate: Code(s): N40.0 - Benign prostatic hyperplasia without lower urinary tract symptoms Category: Medical (5) Elevated PSA: Code(s): R97.20 - Elevated prostate specific antigen [PSA] Category: Medical Plan In office urinalysis results reviewed with the patient today; as noted above. PVR 31 mL. Recent PSA results reviewed with the patient today; as noted above. Discussed bladder triggers/irritants. Discussed at length potential causes of erectile dysfunction; discussed lifestyle modifications to assist with erectile dysfunction. Will obtain testosterone free and total for further assessment evaluation. Discussed further treatment options for erectile dysfunction to include injectable therapy versus penile prosthesis; risks and benefits of these interventions were discussed at length. Patient does report urinary urgency and frequency however does not feel they are bothersome at this time. Continue finasteride 5 mg daily. Will continue with surveillance monitoring of PSA. Follow-up in 1-3 months with labs to be completed prior; or sooner with any issues, concerns, and or questions. Orders: Orders AMB Urinalysis Automated Today Z13.9 - Encounter for screening, unspecified Testosterone, Free/Total Today N52.9 - Male erectile dysfunction, unspecified AMB Post Void Residual by ultrasound Today R39.9 - Unspecified symptoms and signs involving the genitourinary system Patient Instructions: The patient had an opportunity to ask questions regarding the treatment plan. All questions were answered. Physical exam, labs, and imaging were discussed and reviewed in detail. As well as risks, benefits, and discussion of treatment choices. No major barriers to understanding were identified. The patient expressed understanding and agreement with the above treatment plan. The patient was made aware they should contact our office by phone for worsening of their current condition, the appearance of new symptoms, or with any questions or concerns. Compliance is encouraged with any medications and follow up testing that is ordered. It is a privilege to be allowed the opportunity to participate in? your urological care.? Again, if you have any questions or concerns If you have any questions or concerns please do not hesitate to contact me. The office is [phone]. This note is constructed using voice recognition software. While every effort has been made to ensure accuracy extruding press adjuster errors may have been included. Yours sincerely, ANTHONY Ponce Coding Level of Care Code Est Pt Level 3 (59297) Diagnoses Erectile dysfunction N52.9 Bladder wall thickening N32.89 Lower urinary tract symptoms R39.9 Enlarged prostate N40.0 Elevated PSA R97.20 CPT Codes Post Residual Void - PVR CPT Code: 46155-Hzbk Void Residual by ultrasound ([id number])
== END 2023-09-19 14:19 | disposition home or self-care (01) ==
PROVIDERS: PCP Internal Medicine Medical Oncology; Visit Provider Nurse Practitioner Family
DX: N52.9 Male erectile dysfunction, unspecified (principal); N32.89 Other specified disorders of bladder; R39.9 Unspecified symptoms and signs involving the genitourinary system; N40.0 Benign prostatic hyperplasia without lower urinary tract symptoms; R97.20 Elevated prostate specific antigen [PSA]; Z13.9 Encounter for screening, unspecified
CPT/HCPCS: 99213

== ENCOUNTER → 2023-09-19 13:32 | Outpatient (BNVA) | payer MEDICARE, SELFPAY | PROVIDERS: PCP Internal Medicine Medical Oncology; Visit Provider Nurse Practitioner Family | DX: N52.9 Male erectile dysfunction, unspecified (principal); N32.89 Other specified disorders of bladder; R39.9 Unspecified symptoms and signs involving the genitourinary system; N40.0 Benign prostatic hyperplasia without lower urinary tract symptoms; R97.20 Elevated prostate specific antigen [PSA]; Z79.899 Other long term (current) drug therapy | CPT/HCPCS: 51798; 81003; 99212 ==

== ENCOUNTER 2023-11-22 10:43 | Outpatient (REF) | payer MEDICARE, SELFPAY ==
[2023-11-22 12:34] LABS: Prostate Specific Antigen 2.95 ng/mL (<0.05-4.0)
[2023-11-29 00:59] LABS: Testosterone, Free 79.6 pg/mL (35.0-155.0); Testosterone, Total 704 ng/dL (250-1100)
== END 2023-11-22 10:44 | disposition home or self-care (01) ==
LOC: HO.LAB 10:43
PROVIDERS: PCP Internal Medicine Medical Oncology; Visit Provider Nurse Practitioner Family
DX: N52.9 Male erectile dysfunction, unspecified (principal); R97.20 Elevated prostate specific antigen [PSA]; Z12.5 Encounter for screening for malignant neoplasm of prostate
CPT/HCPCS: 36415; 84153; 84402; 84403

== ENCOUNTER 2023-12-11 14:26 | Outpatient (AMB) | payer MEDICARE, SELFPAY ==
--- NOTE | 2023-12-11 14:29 | A.OFFVIS_ITS ---
Intake Visit Reasons: f/u labs Intake Note: Patient is Present for Follow Up PSA/PVR PSA: 2.95 Testosterone: 704 Free Testosterone: 79.6 Urology Medication: Finasteride, Tadalafil Antibiotic Allergies: Amoxicillin Blood Thinners: None Pharmacy: [facility] PVR: 27ml's Male Model Required: No Accompanied by: Self / Same As Patient Allergies amoxicillin [Amoxicillin] Allergy (Mild, Verified 12/11/23 16:21) RASH Medication List - Last Reconciled 12/11/23 by ANTHONY Ponce bupropion HCl 100 mg PO BID finasteride 5 mg PO DAILY 90 days tadalafil (Cialis) 5 mg PO DAILY 90 days tadalafil (Cialis) 20 mg PO DAILY PRN 90 days HPI Comments Details: Og is a pleasant 68-year-old male patient of Dr. Aranda. He presents to the office today for follow-up his elevated PSA and erectile dysfunction. In discussion with the patient today he reports to be doing and feeling well. Of note, patient was seen approximately 6 weeks ago at which time testosterone levels and PSA were ordered for further assessment. These results were reviewed with the patient today. As noted and trended below. He currently denies any bothersome urinary issues or concerns. He discusses his upcoming travel to [facility] as well as [facility] again in February. Previous workup has included a retroperitoneal ultrasound noting bilateral kidneys with no calculi, lesions, or hydronephrosis noted. Diffuse wall thickening with trabeculations noted to the bladder. Pre void bladder volume is approximately 250 mL. Postvoid bladder volume is approximately 95 mL. Enlarged prostate with a volume of 91 mL. PSAs are as follows: 09/04 5.5, 09/05 5.4, 03/08 5.7, 03/08 4.4 percent free PSA 23%, 09/06 4.4 percent free PSA 30%, 03/09 3.2, 09/07 3.1, 12/08 3.0 Testosterone: 12/08 704 Free testosterone: 12/08 79.6 When asked patient reports compliance with finasteride 5 mg daily. He does report episodes of urinary urgency and frequency however does not find this bothersome at this time. He otherwise denies incontinence, hematuria, dysuria, foul smelling urine, changes to urinary stream, flank pain, fever, and or chills. In office urinalysis results reviewed with the patient today. PVR 27mL. He reports to be happy with current erections with daily tadalafil as well as p.r.n. prior to sexual activity. He otherwise denies any issues or concerns at this time. Review of Systems Const All systems reviewed & are unremarkable except as noted in HPI and below Eyes Reports as per HPI ENT Reports no additional complaints Card Reports no additional complaints Resp Reports no additional complaints GI Reports no additional complaints Reports as per HPI Musc Reports no additional complaints Skin/Breast Reports as per HPI Neuro Reports no additional complaints Psych Reports no additional complaints Endo Reports no additional complaints Asael/Lymph Reports no additional complaints Aller/Immun Reports no additional complaints Physical Exam Const General: cooperative, healthy appearing, comfortable, no acute distress, well developed, alert and awake Nutritional Appearance: average body habitus Orientation/consciousness: patient oriented x3 Limitations: no limitations HEENT Head: Yes normal to inspection, Yes normocephalic and Yes atraumatic Ears: hearing grossly normal bilaterally Eyes General: appearance normal, both eyes and all related structures Neck Neck: Yes normal visual inspection and Yes trachea midline Chest Chest palpation & inspection: normal inspection of the chest Resp Effort & Inspection: normal respiratory effort and able to speak in complete sentences Cardio Rate: regular rate GI Inspection: Yes normal to inspection General: Yes no CVA tenderness Back/Spine/Pelvis Back: no CVA tenderness Skin General skin exam: no rashes or lesions noted Neuro General: patient oriented x3 Extrem General: Yes normal to inspection Psych Appearance: grossly normal and well kempt Mental Status: mental status grossly normal Speech and movement: Normal speech and movement present and Clear speech present Affect: normal affect Attitude: cooperative Thought process: Normal thought process present Thought content: Normal thought content present Insight: Fair insight present (Psych) Judgement: Fair judgement present (Psych) Office Procedures Post Void Residual Post Residual Void Post Void Residual (PVR): 27 [id number] Void Residual by ultrasound Results AMB Urinalysis, Automated UA Leukoctes 0 Judson/uL Last Edit by Ben Hackett on 12/11/23 14:53 UA Nitrite Negative Last Edit by Ben Hackett on 12/11/23 14:53 UA Urobilinogen 0.2 mg/dL Last Edit by Ben Hackett on 12/11/23 14:53 UA Protein 0 mg/dL Last Edit by Zaireycsarah Hackett on 12/11/23 14:53 UA pH 6.0 Last Edit by Ben Hackett on 12/11/23 14:53 UA Blood 0 Sam/uL Last Edit by Ben Hackett on 12/11/23 14:53 UA Specific Folcroft 1.015 Last Edit by Ben Hackett on 12/11/23 14:53 UA Ketone Negative Last Edit by Ben Hackett on 12/11/23 14:53 UA Bilirubin 0 mg/dL Last Edit by Ben Hackett on 12/11/23 14:53 UA Glucose 0 mg/dL Last Edit by Ben Hackett on 12/11/23 14:53 Results Reviewed Results Reviewed: Laboratory Last Values Urine pH (Auto) 6.0 12/11/23 14:36 Specific Folcroft (Auto) 1.015 12/11/23 14:36 Urine Protein (Auto) 0 mg/dL 12/11/23 14:36 Glucose (UA)(Auto) 0 mg/dL 12/11/23 14:36 Urine Ketones (Auto) Negative 12/11/23 14:36 Urine Blood (Auto) 0 Sam/uL 12/11/23 14:36 Urine Nitrite (Auto) Negative 12/11/23 14:36 Urine Bilirubin (Auto) 0 mg/dL 12/11/23 14:36 Urine Urobilinogen (Auto) 0.2 mg/dL 12/11/23 14:36 Leukocyte Esterase (Auto) 0 Judson/uL 12/11/23 14:36 Assessment & Plan Assessment & Plan (1) Erectile dysfunction: Code(s): N52.9 - Male erectile dysfunction, unspecified Category: Medical (2) Bladder wall thickening: Code(s): N32.89 - Other specified disorders of bladder Category: Medical (3) Lower urinary tract symptoms: Code(s): R39.9 - Unspecified symptoms and signs involving the genitourinary system Category: Medical (4) Enlarged prostate: Code(s): N40.0 - Benign prostatic hyperplasia without lower urinary tract symptoms Category: Medical (5) Elevated PSA: Code(s): R97.20 - Elevated prostate specific antigen [PSA] Category: Medical Plan In office urinalysis results reviewed with the patient today; as noted above. PVR 27 mL. Recent PSA and testosterone results reviewed with the patient today; as noted above. Discussed at length potential causes of erectile dysfunction; discussed l ifestyle modifications to assist with erectile dysfunction. Patient does report urinary urgency and frequency however does not feel they are bothersome at this time. Continue finasteride 5 mg daily; refills provided Continue 5 mg of tadalafil daily as well as p.r.n. prior to sexual activity; refills provided Will continue with surveillance monitoring of PSA. Follow-up in 6 months with PSA to be completed prior; or sooner with any issues, concerns, and or questions. Orders: Orders AMB Urinalysis Automated Today Z13.9 - Encounter for screening, unspecified AMB Post Void Residual by ultrasound Today R39.9 - Unspecified symptoms and signs involving the genitourinary system Prostate Specific Antigen 6 Months N40.0 - Benign prostatic hyperplasia without lower urinary tract symptoms, R97.20 - Elevated prostate specific antigen [PSA] Medications: Refilled tadalafil (Cialis) 5 mg PO DAILY 90 days 90 tabs 3RF tadalafil (Cialis) administer approximately 30-60 min before sexual activity; do not use more than 1 dose per 24hrs 20 mg PO DAILY 90 days PRN 40 tabs 3RF sexual activity Patient Instructions: The patient had an opportunity to ask questions regarding the treatment plan. All questions were answered. Physical exam, labs, and imaging were discussed and reviewed in detail. As well as risks, benefits, and discussion of treatment choices. No major barriers to understanding were identified. The patient expressed understanding and agreement with the above treatment plan. The patient was made aware they should contact our office by phone for worsening of their current condition, the appearance of new symptoms, or with any ques tions or concerns. Compliance is encouraged with any medications and follow up testing that is ordered. It is a privilege to be allowed the opportunity to participate in? your urological care.? Again, if you have any questions or concerns If you have any questions or concerns please do not hesitate to contact me. The office is [phone]. This note is constructed using voice recognition software. 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 Yours sincerely, ANTHONY Ponce Coding Level of Care Code Est Pt Level 3 (64359) Complex EM visit Add On G2211 Diagnoses Erectile dysfunction N52.9 Bladder wall thickening N32.89 Lower urinary tract symptoms R39.9 Enlarged prostate N40.0 Elevated PSA R97.20 CPT Codes Post Residual Void - PVR CPT Code: 86824-Guyr Void Residual by ultrasound ([id number])
== END 2023-12-11 14:55 | disposition home or self-care (01) ==
PROVIDERS: PCP Internal Medicine Medical Oncology; Visit Provider Nurse Practitioner Family
DX: N52.9 Male erectile dysfunction, unspecified (principal); N32.89 Other specified disorders of bladder; R39.9 Unspecified symptoms and signs involving the genitourinary system; N40.0 Benign prostatic hyperplasia without lower urinary tract symptoms; R97.20 Elevated prostate specific antigen [PSA]; Z13.9 Encounter for screening, unspecified
CPT/HCPCS: 99213; G2211

== ENCOUNTER → 2023-12-11 14:26 | Outpatient (BNVA) | payer MEDICARE, SELFPAY | PROVIDERS: PCP Internal Medicine Medical Oncology; Visit Provider Nurse Practitioner Family | DX: N52.9 Male erectile dysfunction, unspecified (principal); N32.89 Other specified disorders of bladder; N40.0 Benign prostatic hyperplasia without lower urinary tract symptoms; R39.9 Unspecified symptoms and signs involving the genitourinary system; R97.20 Elevated prostate specific antigen [PSA] | CPT/HCPCS: 51798; 81003; 99212 ==

== ENCOUNTER 2024-08-17 07:46 | Outpatient (REF) | payer MEDICARE, SELFPAY ==
[2024-08-17 09:48] LABS: Prostate Specific Antigen 4.48 ng/mL (<0.05-4.0)
== END 2024-08-17 07:47 | disposition home or self-care (01) ==
LOC: HO.LAB 07:46
PROVIDERS: PCP Internal Medicine Medical Oncology; Visit Provider Nurse Practitioner Family
DX: N40.0 Benign prostatic hyperplasia without lower urinary tract symptoms (principal); R97.20 Elevated prostate specific antigen [PSA]; Z12.5 Encounter for screening for malignant neoplasm of prostate
CPT/HCPCS: 36415; 84153

== ENCOUNTER 2024-08-19 10:19 | Outpatient (AMB) | payer MEDICARE, SELFPAY ==
--- NOTE | 2024-08-19 10:21 | MHC.OFFVIS ---
Intake Visit Reasons: 6 month follow up PSA Intake Note: Patient is Present for Follow Up PSA/PVR PSA: 4.48 Urology Medication: Finasteride, Tadalafil Antibiotic Allergies: Amoxicillin Blood Thinners: None PVR:0ml Timber Girdler Required: No Accompanied by: Self / Same As Patient Allergies amoxicillin [Amoxicillin] Allergy (Mild, Verified 08/19/24 10:59) RASH Medication List - Last Reconciled 08/19/24 by MARIO PonceP- bupropion HCl 100 mg PO BID finasteride 5 mg PO DAILY 90 days tadalafil (Cialis) 5 mg PO DAILY 90 days tadalafil (Cialis) 20 mg PO DAILY PRN 90 days HPI Comments Details: Og is a pleasant 68-year-old male patient of Dr. Aranda. He presents to the office today for follow-up his elevated PSA and erectile dysfunction. In discussion with the patient today he reports to be doing and feeling well. He discusses recently coming back from his vacation to [facility] where he visits his girlfriend Lyubov. He reports while in [facility] he had lost his prescription for finasteride and therefore has not been on the medication however has recently traveled back home on August 15 in restarted his finasteride. Recent PSA results reviewed with the patient today as noted and trended below. We discussed increase in PSA however patient has not been on his finasteride as prescribed. He reports noting significant improvement in lower urinary tract symptoms he had been experiencing. We discussed benefits of low-dose Cialis with potential bladder stability. He is requesting refill on all urological medications. In office urinalysis results reviewed with the patient today. PVR 0 mL. Previous workup has included a retroperitoneal ultrasound 11/06 noting bilateral kidneys with no calculi, lesions, or hydronephrosis noted. Diffuse wall thickening with trabeculations noted to the bladder. Pre void bladder volume is approximately 250 mL. Postvoid bladder volume is approximately 95 mL. Enlarged prostate with a volume of 91 mL. PSAs are as follows: 09/04 5.5, 09/05 5.4, 03/08 5.7, 03/08 4.4 percent free PSA 23%, 09/06 4.4 percent free PSA 30%, 03/09 3.2, 09/07 3.1, 12/08 3.0, 5/25 4.5 Testosterone: 12/08 704 Free testosterone: 12/08 79.6 We discussed potential increase in PSA as well as further treatment options and risks and benefits of these treatment options. He denies urinary urgency, urinary frequency, nocturia, incontinence, hematuria, dysuria, foul smelling urine, changes to urinary stream, flank pain, fever, and or chills. He reports to be happy with current erections with daily tadalafil as well as p.r.n. prior to sexual activity. He otherwise denies any issues or concerns at this time. Review of Systems Const All systems reviewed & are unremarkable except as noted in HPI and below Eyes Reports as per HPI ENT Reports no additional complaints Card Reports no additional complaints Resp Reports no additional complaints GI Reports no additional complaints Reports as per HPI Musc Reports no additional complaints Skin/Breast Reports as per HPI Neuro Reports no additional complaints Psych Reports no additional complaints Endo Reports no additional complaints Asael/Lymph Reports no additional complaints Aller/Immun Reports no additional complaints Physical Exam Const General: cooperative, healthy appearing, comfortable, no acute distress, well developed, alert and awake Nutritional Appearance: average body habitus Orientation/consciousness: patient oriented x3 Limitations: no limitations HEENT Head: Yes normal to inspection, Yes normocephalic and Yes atraumatic Ears: hearing grossly normal bilaterally Eyes General: appearance normal, both eyes and all related structures Neck Neck: Yes normal visual inspection and Yes trachea midline Chest Chest palpation & inspection: normal inspection of the chest Resp Effort & Inspection: normal respiratory effort and able to speak in complete sentences Cardio Rate: regular rate GI Inspection: Yes normal to inspection General: Yes no CVA tenderness Back/Spine/Pelvis Back: no CVA tenderness Skin General skin exam: no rashes or lesions noted Neuro General: patient oriented x3 Extrem General: Yes normal to inspection Psych Appearance: grossly normal and well kempt Mental Status: mental status grossly normal Speech and movement: Normal speech and movement present and Clear speech present Affect: normal affect Attitude: cooperative Thought process: Normal thought process present Thought content: Normal thought content present Insight: Fair insight present (Psych) Judgement: Fair judgement present (Psych) Assessment & Plan Assessment & Plan (1) Elevated PSA: Code(s): R97.20 - Elevated prostate specific antigen [PSA] Category: Medical (2) Enlarged prostate: Code(s): N40.0 - Benign prostatic hyperplasia without lower urinary tract symptoms Category: Medical (3) Erectile dysfunction: Code(s): N52.9 - Male erectile dysfunction, unspecified Category: Medical Plan We discussed importance of taking medications as prescribed. Restart/ Continue finasteride as discussed and prescribed. Prescription provided for Cialis. He currently denies any bothersome urinary issues or concerns. He reports be happy with current voiding parameters. We discussed reassessment of PSA as well as potential causes of elevated PSA. Will obtain PSA in 3 months Follow-up in 3-4 months with PSA to be completed prior; or sooner with any issues, concerns, and or questions. Orders: Orders AMB Urinalysis Automated Today Z13.9 - Encounter for screening, unspecified AMB Post Void Residual by ultrasound Today R39.9 - Unspecified symptoms and signs involving the genitourinary system PSA,Total (Free>4and<10) 3 Months R97.20 - Elevated prostate specific antigen [PSA] Medications: Refilled tadalafil (Cialis) 5 mg PO DAILY 90 days 90 tabs 3RF tadalafil (Cialis) administer approximately 30-60 min before sexual activity; do not use more than 1 dose per 24hrs 20 mg PO DAILY 90 days PRN 40 tabs 3RF sexual activity Patient Instructions: The patient had an opportunity to ask questions regarding the treatment plan. All questions were answered. Physical exam, labs, and imaging were discussed and reviewed in detail. As well as risks, benefits, and discussion of treatment choices. No major barriers to understanding were identified. The patient expressed understanding and agreement with the above treatment plan. The patient was made aware they should contact our office by phone for worsening of their current condition, the appearance of new symptoms, or with any questions or concerns. Compliance is encouraged with any medications and follow up testing that is ordered. It is a privilege to be allowed the opportunity to participate in? your urological care.? Again, if you have any questions or concerns If you have any questions or concerns please do not hesitate to contact me. The office is [phone]. This note is constructed using voice recognition software. While every effort has been made to ensure accuracy toilet and laundry soap supervisor errors may have been included. Yours sincerely, ANTHONY Ponce Coding Level of Care Code Est Pt Level 3 (05675) Diagnoses Elevated PSA R97.20 Enlarged prostate N40.0 Erectile dysfunction N52.9
--- OUTSIDE RECORDS SUMMARY | 2024-08-19 11:39 | XMS_ITS | Patient Health Record ---
Author Organization Sebastián Aranda III, MD Address [address] [place] [address] Care Team Providers Care Certified Phlebotomist Name Role Phone Sebastián Aranda Primary Care Provider Allergies Allergen (clinical drug [...] 0.2 - 1.3 BLD Negative Negative - Complete Blood Count Auto Di ff Reviewed date:09/22/2023 10:27:48 AM Interpretation: Performing Lab:[facility], [address] [place] [phone] Notes/Report: White Blood Count 6.5 4.8-10.8 X10*3/uL Red Blood Count 5.15 4.60-5.80 X10*6/uL Hemoglobin 15.0 14.0-18.0 g/dl Hematocrit 45.1 42.0-52.0 % Mean Corpuscular Volume 87.6 80.0-98.0 fL Mean Corpuscular Hemoglobin 29.1 27.0-33.0 pg Mean Corpuscular HGB Conc 33.3 31.0-36.0 g/dl Red Cell Distribution Width 13.5 11.0-16.0 % Platelet Count 206 160-400 X10*3/uL Mean Platelet Volume 9.7 9.4-12.4 fL Neutrophils Percent Auto 54.2 45-73 % Imm Gran Pct Auto 0.5 0.0-0.4 % Lymphocytes Percent Auto 24.5 20-40 % Monocytes Percent Auto 10.8 2-11 % Eosinophils Percent Auto 9.1 0-4 % Basophils Percent Auto 0.9 0-2 % NRBC Pct Auto 0.0 0.0-0.2 /100WBC Neutrophils Absolute Auto 3.5 2.0-8.3 x10*3/u L Imm Gran Abs Auto 0.03 0.00-0.03 X10*3/uL Lymphocytes Absolute Auto 1.6 1.2-4.9 X10*3/u L Monocytes Absolute Auto 0.7 0.1-1.2 X10*3/uL Eosinophils Absolute Auto 0.6 0.0-0.4 X10*3/u L Basophils Absolute Auto 0.1 0.0-0.2 X10*3/uL NRBC Abs Auto 0.000 0.0-0.012 X10*3/uL Comprehensive [place]. Panel Fa st Reviewed date:09/22/2023 10:27:48 AM Interpretation: Performing Lab:[facility], [address] [place] [phone] Notes/Report: Sodium 141 135-145 mmol/L Potassium 4.8 3.3-5.1 mmol/L Chloride 106 96-108 mmol/L Carbon Dioxide 30 22-29 mmol/L Anion Gap 10 12-20 Blood Urea Nitrogen 10 9-16 mg/dL Creatinine 1.05 0.5-1.4 mg/dL Estimated Glomerular Filt Rate > 60 NOTE: For -Macedonian individuals, multiply the result by 1.210. Chronic Kidney Disease: Estimated GFR < 60 mL/min/1.73m2 Severe Kidney Disease: Estimated GFR < 15 mL/min/1.73m2 Glucose Fasting 84 60-99 mg/dL Calcium 9.3 8.4-10.2 mg/dL Bilirubin Total 0.7 0.0-1.0 mg/dL Aspartate Amino Transferase 17 5-37 U/L Alanine Aminotransferase 16 0-40 U/L Total Protein 6.4 6.5-8.0 g/dL Albumin Level 4.0 3.5-5.0 g/dL Alkaline Phosphatase 70 39-117 U/L Lipid Panel Reviewed date:09/22/2023 10:27:48 AM Interpretation: Performing Lab:[address] [phone] Notes/Report: Triglycerides 71 <150 mg/dL Desirable Triglyceride: less than 150 mg/dL Borderline High Triglyceride 150-199 mg/dL High Triglyceride: 200-499 mg/dL Very High Triglyceride: greater than or equal to 5OO mg/dL Cholesterol 224 <200 mg/dL Desirable Cholesterol: less than 200 mg/dL Borderline High Cholesterol: 200-239 mg/dL High Cholesterol: greater than 239 mg/dL LDL Cholesterol Calculated 143 <100 mg/dL Desirable LDL: less than 100 mg/dL Near Optimal/Above Optimal LDL: 110-129 mg/dL Borderline High LDL: 130-159 mg/dL High LDL: 160-189 mg/dL Very High LDL: greater than or equal to 190 mg/dL HDL Cholesterol 67 >40 mg/dL Desirable HDL: greater than 40 mg/dL Note: This HDL assay may give artificially low results in patients with liver disease. Prostate Specific Antigen Reviewed date:09/22/2023 10:27:48 AM Interpretation: Performing Lab:[facility], [address] [place] [phone] Notes/Report: Prostate Specific Antigen 3.09 <0.05-4.0 ng/mL PSA methodology: Bermeo Alinity i Chemiluminescent Microparticle Immunoassay (CMIA) Prostate Specific Antigen Reviewed date:12/20/2023 10:11:16 AM Interpretation: Performing Lab:[facility], [address] [place] [phone] Notes/Report: Prostate Specific Antigen 2.95 <0.05-4.0 ng/mL PSA methodology: Bermeo Alinity i Chemiluminescent Microparticle Immunoassay (CMIA) Testosterone, Free/Total Reviewed date:12/20/2023 10:11:16 AM Interpretation: Performing Lab:[facility], [address] [place] [phone] Notes/Report: Testosterone, Total 031 750-9905 ng/dL Men with clinically significant hypogonadal symptoms and testosterone values repeatedly in the range of the 200-300 ng/dL or less, may benefit from testosterone treatment after adequate risk and benefits counseling. For additional information, please refer to http://education.BeMyGuest/faq/ TotalTestosteroneLCMSMSFAQ 165 (This link is being provided for informational/ educational purposes only.) This test was developed and its analytical performance characteristics have been determined by [facility] [place], [place]. It has not been cleared or approved by the U.S. Food and Drug Administration. This assay has been validated pursuant to the CLIA regulations and is used for clinical purposes. Testosterone, Free 79.6 35.0-155.0 pg/mL This test was developed and its analytical performance characteristics have been determined by [facility] [place], [place]. It has not been cleared or approved by the U.S. Food and Drug Administration. This assay has been validated pursuant to the CLIA regulations and is used for clinical purposes. THIS TEST WAS PERFORMED AT: [facility] [address] DAX MCCULLOUGH MD,PHD Prostate Specific Antigen Reviewed date:08/17/2024 08:41:07 PM Interpretation: Performing Lab:[facility], [address] [place] [phone] Notes/Report: Prostate Specific Antigen 4.48 <0.05-4.0 ng/mL PSA methodology: Bermeo Alinity i Chemiluminescent Microparticle Immunoassay (CMIA) Reason For Referral No Information Medications Medication SIG (Take, Route, Fr equency, Duration) Notes Start Date End Date Status Tadalafil 5 MG 1 tablet as needed O rally Once a day Active Finasteride 5 MG 1 tablet Orally Once a day Active Terazosin HCl 2 MG TAKE 1 CAPSULE BY MO UTH EVERY DAY AT BEDTIME Active buPROPion HCl 100 MG TAKE 1 TABLET BY MO UTH TWICE DAILY Active Immunizations Vaccine Route Administration Date Status Comme nts Influenza Unknown 02/13/2014 Administered Pneumococcal Unknown 02/13/2014 Administered Influenza IM Intramuscular 02/09/2015 Administered Influenza IM Intramuscular 02/15/2016 Administered Influenza no Preserv 3 and > Unknown 01/22/2020 Administered Social History Tobacco Use: Social History Observation [...] Problem Status W/U Status Risk Notes Problem 37428220 Depression (F32.9) Active confirmed His bupropion was discontinued. His depression has been addressed and is well controlled. He is able to conduct all of the activities of daily life. 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 He does not wish treatment at this time. Problem [id number] BPH (benign prostatic hyperplasia) (N40.0) Active confirmed He rises from sleep once or twice a night. He is now under the care of a urologist. He is compliant with all of his medications. Problem 109115203 Erectile dysfunction (N52.9) Active confirmed This complaint is well controlled with oral medication. 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 Problem [id number] History of herpes zoster (Z86.19) Active confirmed He has had no further outbreaks of this problem. Problem Hyperlipidaemia (46946059) Hyperlipidemia, unspecified hyperlipidemia type (E78.5) Active confirmed Comprehensive blood work is being done periodically. No change in his regimen was made. Vital Signs Heart Rate 113 /min 01/22/2024 Temperature 98.2 degrees Fahrenheit 01/22/2024 Blood pressure diastolic 80 mm Hg 01/22/2024 Height 68 in 01/22/2024 Blood pressure systolic 122 mm Hg 01/22/2024 Weight 150 lbs 01/22/2024 BMI 22.8 kg/m2 01/22/2024 Encounters Encounter Location Date Provider Diagnosis Sebastián Aranda III, MD [address] [place] [address] [address] [place] [phone] 09/22/2023 Sebastián Aranda BPH (benign prostati c hyperplasia) N40.0 ; Hyperlipidemia, unspecified hyperlipidemia type E78.5 ; Depression F32.9 ; Erectile dysfunction N52.9 ; Palmar fascial fibromatosis [Dupuytren] M72.0 ; Elevated PSA R97.20 and Fungal dermatitis B36.9 Sebastián Aranda III, MD [address] [place] [address] [place] [phone] 01/22/2024 Sebastián Aranda BPH (benign prostati c hyperplasia) N40.0 ; Depression F32.9 ; Hyperlipidemia, unspecified hyperlipidemia type E78.5 ; Erectile dysfunction N52.9 and Palmar fascial fibromatosis [Dupuytren] M72.0 Sebastián Aranda III, MD [address] [place] [address] [place] [phone] 08/29/2023 Sebastián Aranda III, MD [address] [place] [address] [place] [phone] 09/13/2023 Sebastián Aranda Assessments Encounter Date Diagnosis (ICD Code) Assessment [...] an effort to avoid cholesterol rich food. 01/22/2024 Depression (ICD-10 - F32.9) His bupropion was discontinued. His depression has been addressed and is well controlled. He is able to conduct all of the activities of daily life. 01/22/2024 BPH (benign prostati c hyperplasia) (ICD-10 - N40.0) He rises from sleep once or twice a night. He is now under the care of a urologist. He is compliant with all of his medications. 09/22/2023 Depression (ICD-10 - F32.9) His bupropion was discontinued. His depression has been addressed and is well controlled. He is able to conduct all of the activities of daily life. 01/22/2024 Hyperlipidemia, unspecified hyperlipidemia type (ICD-10 - E78.5) Comprehensive blood work is being done periodically. No change in his regimen was made. 09/22/2023 Erectile dysfunction (ICD-10 - N52.9) This complaint is well controlled with oral medication. However, he says he hardly ever has a opportunity to use it 01/22/2024 Erectile dysfunction (ICD-10 - N52.9) This complaint is well controlled with oral medication. However, he says he hardly ever has a opportunity to use it 09/22/2023 Palmar fascial fibromatosis [Dupuytren] (ICD-10 - M72.0) He has mild bilateral Dupuytren's contractures but says they do not bother him. He does not wish treatment at this time. 01/22/2024 Palmar fascial fibromatosis [Dupuytren] (ICD-10 - M72.0) He has mild bilateral Dupuytren's contractures but says they do not bother him. He does not wish treatment at this time. 09/22/2023 Elevated PSA (ICD-10 - R97.20) His PSA is now 3.09 and this problem has resolved. 09/22/2023 Fungal dermatitis (ICD-10 - B36.9) Is given a prescription for clotrimazole betamethasone. Plan Of Treatment Pending Test Test Name Order Date PROFILE, FASTING (COMPREHENSIVE METABOLI C) 01/22/2024 PSA, TOTAL 01/22/2024 CBC WITH AUTO DIFF 01/22/2024 Lipid Panel 01/22/2024 Next Appt Details Provider Name:Sebastián Aranda, 09/24/2024 10:00:00 AM, [address] [place] [address] [address], [place], [phone], Insurance Providers Payer Name Payer Address Payer Phone Subscriber Number Group Number Insured Name Patient Relationship to Insured Coverage Start Date Coverage End Date [address] [place] [phone] [id number] Cheryle Og Self - patient is the insured MEDICARE NGS [address] [place] [phone] [id number] Og Lobato Self - patient is the insured Medical (General) History Medical History History ICD Code shingles age 10 depression Dupuyten's contractures allergic amoxicillin ED BPH Surgical History Surgery Date(Month/Year) negative colonoscopy 2008 GI biopsy 04/2019 Tonsils removed at 7 years old No history Hospitalization History Reason Date(Month/Year) No history
--- OUTSIDE RECORDS SUMMARY | 2024-08-19 11:39 | XMS_ITS ---
Author Organization Sebastián Aranda III, MD Address [address] [place] [address] [place] [address] Care Team Providers Care Ophthalmic Surgeon Name Role Phone Sebastián Aranda Primary Care Provider REASON FOR VISIT Needs call back from Social History Sex Assigned At : Social History Observation Description Sex Assigned At Male Encounters Encounter Location Date Provider Diagnosis Sebastián Aranda III, MD [address] [place] [address] [place] [phone] 09/13/2023 Sebastián Aranda Plan Of Treatment Next Appt Details Provider Name:Sebastián Aranda, 09/24/2024 10:00:00 AM, [address] [place] [address] [place], [phone], Progress Notes * Og LOBATODOB: [birth year] (67 yo M)Acc No.[id number]:09/13/2023 Patient:?MaciemichaelOg :1955???Age:67 Y???Sex:Male Address:[address] [place], [place] [address] [address] * true * Date:? Generated for Printi ng/Faleannag/eTransmitting on:?08/19/2024 11:39 AM EDT
--- OUTSIDE RECORDS SUMMARY | 2024-08-19 11:40 | XMS_ITS ---
Author Organization Sebastián Aranda III, MD Address [address] [address] Care Team Providers Care Lead Medical Technologist Name Role Phone Sebastián Aranda Primary Care Provider [phone] Allergies Allergen (clinical drug ingredient) Drug/Non Drug [...] HCl 2 MG TAKE 1 CAPSULE BY [facility] EVERY DAY AT BEDTIME Active buPROPion HCl 100 MG TAKE 1 TABLET BY [facility] TWICE DAILY Active Social History [...] Date Provider Diagnosis Sebastián Aranda III, MD [address] [place] [address] [place] [address] 01/22/2024 Sebastián Aranda BPH (benign prostati c [...] Next Appt Details Follow Up: As Scheduled, [place] son: OV, Annual Exam Provider Name:Sebastián Aranda, 09/24/2024 10:00:00 AM, [address] [place] [address] [address], [place], [address], Progress Notes * Og LOBATODOB: (68 yo M)Acc No.[id number]:01/22/2024 Progress Notes Patient:?Og LOBATO Provider:?Sebastián Aranda MD :1955???Age:68 Y???Sex:Male Rogerio e:01/22/2024 Address:[address] [place] [address] [id number] Subjective: * Chief Complaints: * ???Benign prostatic hypertro phyDepressionHyperlipidemiaDupuytren's contractureElevated PSA * HPI: ???COVID-19 Screening:?Questions?Have you experienced fever, chills, cough, sore throat, shortness of breath, difficulty breathing, muscle aches, loss of taste or smell??No ?Have you been exposed to the virus within the last 10 days??No ?Have you travelled internationally in the last 10 days??No ?Have you been exposed to COVID-19 in the past??Yes ???:? The patient, Og, a 68-year-old male, came in for a medical management follow-up. He has been experiencing intermittent nocturia, waking up 2-3 times a night to urinate. He has been taking finasteride for about a year to manage this issue. He also mentioned that his skin seems a bit air drier and thinner than usual, and he [...] perfect, and his BMI is 22.8. * ROS:?General/Constitutional:?pain?only normal aches and pains.?Chills?denies.?Fatigue?admits.?Fever?denies.?ENT:?Decreased hearing?denies.?Respiratory:?Cough?denies.?Cardiovascular:?Chest pain with exertion?denies.?Dyspnea on exertion?denies.?Shortness of breath?denies.?Gastrointestinal:?Constipation?occasional.?Decreased appetite?denies.?Diarrhea?denies.?Heartburn?denies.?Nausea?denies.?Rectal bleeding?denies.?Vomiting?denies.?Hematology:?bruising?denies.?petechiae?denies.?Swollen glands?none have been noted.?Genitourinary:?Frequent urination?once a night.?Musculoskeletal:?Muscle aches?denies.?Painful joints?denies.?Sciatica?denies.?Weakness?denies.?Skin:?Itching?denies.?Rash?denies.?Skin lesion(s)?denies.?Neurologic:?Difficulty speaking?denies.?Dizziness?denies.?Headache?denies.?Low back pain?denies.?Psychiatric:?Depressed mood?which is mild.? * Medical History:? * Surgical History:?negative c olonoscopy 2009GI biopsy 04/2019Tonsils removed at 7 years old No history * Hospitalization/Major Diagno stic Procedure:?No history * Family History:?Father: dece ased 80 yrs, chronic obstructive pulmonary disease.?Mother: alive 89 yrs, CVA by CT, dementia.?Paternal Grand Father: .?Paternal Grand Mother: , cardiac disease.?Maternal Grand Father: , diabetes mellitus, myocardial infarction.?Maternal Grand Mother: , car accident.?1 brother(s) , 1 sister(s) - healthy. .? His brother is Sebastián and sister Emerald Gastelum. * Social History:?Tobacco Use:?Tobacco Use/Smoking?Patient is a?nonsmoker ?Additional Findings: Tobacco Non-User?Aggressive non-smoker ???He is from [facility] for several years.They have 2 step daughters. 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 He was born in [place]. * Medications:?TakingFinasteri de 5 MG Tablet 1 tablet Orally Once [...] reviewed and reconciled with the patient * Allergies:?Amoxicillin: rash no[Allergies Verified] Objective: * Vitals:?Ht: 68, Wt:150, BMI: 22.8, BP:122/80, HR:113, Temp:98.2, Wt-k.04. * ???Past Orders: ???Lab:Testosterone, Free/To mirta (Order Date - 11/22/2023) (Collection Date & Time - 11/22/2023 11:15 AM) ? Value Reference Range ?Testosterone, Total 446 409-7456 - ng/dL ?Testosterone, Free 79.6 3 5.0-155.0 - pg/mL Lab:Prostate Specific Antige n * Collection Date 11/22/2023 09/12/2023 02/16/2023 Collection Time 11:15 AM 10:51 AM 09:32 AM Order Date 11/22/2023 09/12/2023 02/16/2023 Prostate Specific Antigen 2.95 (Ref Range: <0.05-4.0 ng/mL) 3.09 (Ref Range: <0.05-4.0 ng/mL) 3.19 (Ref Range: <0.05-4.0 ng/mL) * Examination: ???General Examination: ?GENERAL APPEARANCE:?pleasant, well nourished, well developed, in no acute distress, calm and relaxed, man.?HEAD:?atraumatic, normocephalic.?EYES:?eomi, perrla, anicteric, conjugate.?EARS:?normal.?NOSE:?septum intact.?ORAL CAVITY:?normal, unremarkable.?NECK/THYROID:?no jugular venous distention, no carotid bruit, thyroid normal.?LYMPH NODES:?no enlarged lymph nodes,spleen normal.?SKIN:?no suspicious lesions, anicteric.?HEART:?no clicks, gallops, murmurs, or rubs, regular rhythm, S1, S2 normal, no s3, or vascular bruits.?LUNGS:?clear to auscultation .?BREASTS:??no masses palpable bilaterally.?ABDOMEN:?bowel sounds normal, no ascites, no organomegaly, no mass.?RECTAL EXAM:?not examined.?MUSCULOSKELETAL:?extremities unremarkable, no clubbing, cyanosis or edema, Mild bilateral Dupuytren's contracture of the hands.?PERIPHERAL PULSES:?normal.?NEUROLOGIC:?alert and oriented, cranial nerves 2-12 grossly intact, deep tendon reflexes 2+ symmetrical, motor strength normal upper and lower extremities, sensory exam intact.?PSYCH:?alert, oriented, Depression resolved.? Assessment: * Assessment: 1.?Depression - F32.9 (Prima ry)???Notes :His bupropion was discontinued. His depression has been addressed and is well controlled. He is able to conduct all of the activities of daily life.???2.?BPH (benign prostatic hyperplasia) - N40.0???Notes :He rises from sleep once or twice a night. He is now under the care of a urologist. He is compliant with all of his medications.???3.?Hyperlipidemia, unspecified hyperlipidemia type - E78.5???Notes :Comprehensive blood work is being done periodically.? No change in his regimen was made.???4.?Erectile dysfunction - N52.9???Notes :This complaint is well controlled with oral medication. 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 He does not wish treatment at this time.??? Plan: * Treatment: 2.?Hyperlipidemia, unspecifi ed hyperlipidemia type?LAB: PROFILE, FASTING (COMPREHENSIVE METABOLIC) ?LAB: PSA, TOTAL ?LAB: CBC WITH AUTO DIFF ?LAB: Lipid Panel 3.?Others? Continue buPROPion HCl Tablet, 100 MG, TAKE 1 TABLET BY MOUTH TWICE DAILY;?Continue Terazosin HCl Capsule, 2 MG, TAKE 1 CAPSULE BY MOUTH EVERY DAY AT BEDTIME.?? * Procedure Codes:? * Follow Up:?As Scheduled ([place] son: OV, Annual Exam) * Images: * Sign off status: Completed true * Provider:?Sebastián Aranda MD Date:?10/2023 Generated for Donta conrad/Dewayne/eTlalosmitting on:?08/19/2024 11:40 AM EDT History and Physical Notes * HPI (History of Present Illness) Category Sub-Category Detail Notes COVID-19 Screening Questions Have you had any new onset fever, chills, cough, congestion, sore throat, shortness of breath, muscle aches?: No Have you been exposed to the virus withi n the last 10 days?: No Have you travelled internationally in [facility] last 10 days?: No Have you been [...]
== END 2024-08-19 11:06 | disposition home or self-care (01) ==
LOC: HO.HUSH 10:20
PROVIDERS: PCP Internal Medicine Medical Oncology; Visit Provider Nurse Practitioner Family
DX: R97.20 Elevated prostate specific antigen [PSA] (principal); N40.0 Benign prostatic hyperplasia without lower urinary tract symptoms; N52.9 Male erectile dysfunction, unspecified; Z13.9 Encounter for screening, unspecified
CPT/HCPCS: 99213

== ENCOUNTER → 2024-08-19 10:19 | Outpatient (BNVA) | payer MEDICARE, SELFPAY | PROVIDERS: PCP Internal Medicine Medical Oncology; Visit Provider Nurse Practitioner Family | DX: R97.20 Elevated prostate specific antigen [PSA] (principal); N40.0 Benign prostatic hyperplasia without lower urinary tract symptoms; N52.9 Male erectile dysfunction, unspecified | CPT/HCPCS: 51798; 81003; 99212 ==

== ENCOUNTER 2024-08-21 07:31 | Outpatient (REF) | payer MEDICARE, SELFPAY ==
--- NOTE | ~2024-08-21 | US_ITS ---
EXAMINATION: US LOWER EXTREMITY VEINS LIMITED FOLLOW UP RIGHT HISTORY: RIGHT CALF PAIN COMPARISON: There are no prior studies for comparison. TECHNIQUE: Duplex and color Doppler sonographic examination of the deep venous system of the right lower extremity was performed. FINDINGS: The common femoral and superficial femoral veins are patent demonstrating normal compressibility, spontaneous flow, and augmentation. There is nonocclusive thrombus within the popliteal vein. There is also thrombus within the gastrocnemius vein extending to its confluence with the femoral vein. The posterior tibial veins are patent. The peroneal veins are thrombosed. US/US venous duplex LE RT IMPRESSION: Nonocclusive popliteal DVT with additional thrombosis of the gastrocnemius and peroneal veins. Findings were communicated to Dr. Aranda on 08/21/2024 at 8:17 AM, and the patient was sent to the emergency room. Electronically signed by: Sebastián Agustin MD 08/21/2024 08:20 AM EDT
--- OUTSIDE RECORDS SUMMARY | 2024-08-21 07:33 | XMS_ITS ---
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) Active confirmed [...] Date Provider Diagnosis Sebastián Aranda III, MD [address] [place] [address] [place] [address] 09/22/2023 Sebastián Aranda BPH (benign prostati c [...] HCl 2 MG TAKE 1 CAPSULE BY [facility] EVERY DAY AT BEDTIME Finasteride 5 MG 1 tablet Orally Once a day buPROPion HCl 100 MG TAKE 1 TABLET BY MO [place] TWICE DAILY Clotrimazole-Betamethasone 1-0.05 % 1 application Externally Twice a day for 14 days 09/22/2023 11/17/2023 Next Appt Details Follow Up: 4 Months, Reason: OV Provider Name:Sebastián Aranda, 08/23/2024 02:45:00 PM, [address] [place] [address] [address], [place], [address], Provider Name:Sebastián Aranda, 09/24/2024 10:00:00 AM, [address] [place] [address] [place], [address], Progress Notes * Og LOBATODOB: (67 yo M)Acc No.[id number]:09/22/2023 Progress Notes Patient:?Og Lobato Provider:?Sebastián Aranda MD :1955???Age:67 Y???Sex:Male Rogerio e:09/22/2023 Address:[place], [id number] Subjective: * Chief Complaints: * ???Annual Exam * HPI: ???Depression Screening:? d. He returns at the age of [...] change in his medications was necessary today. ?PHQ-9?Little interest or pleasure in doing things?Not at all ?Feeling down, depressed, or hopeless?Not at all ?Trouble falling or staying asleep, or sleeping too much?Not at all ?Feeling tired or having little energy?Not at all ?Poor appetite or overeating?Not at all ?Feeling bad about yourself or that you are a failure, or have let yourself or your family down?Not at all ?Trouble concentrating on things, such as reading the newspaper or watching television?Not at all ?Moving or speaking so slowly that other people could have noticed; or the opposite, being so fidgety or restless that you have been moving around a lot more than usual?Not at all ?Thoughts that you would be better off or of hurting yourself in some way?Not at all ?Total Score?0 ???COVID-19 Screening:?Questions?Have you experienced fever, chills, cough, sore throat, shortness of breath, difficulty breathing, muscle aches, loss of taste or smell??No ?Have you been exposed to the virus within the last 10 days??No ?Have you travelled internationally in the last 10 days??No ?Have you been exposed to COVID-19 in the past??Yes ???SDOH Questions:?SDOH Questions?In the past year have you been worried about losing your housing??No ?In the past year have you or any family members you live with been unable to get any of the following when it was really needed? Check all that apply:?None * ROS:?General/Constitutional:?pain?only normal aches and pains.?Chills?denies.?Fatigue?admits.?Fever?denies.?ENT:?Decreased hearing?denies.?Respiratory:?Cough?denies.?Cardiovascular:?Chest pain with exertion?denies.?Dyspnea on exertion?denies.?Shortness of breath?denies.?Gastrointestinal:?Constipation?occasional.?Decreased appetite?denies.?Diarrhea?denies.?Heartburn?denies.?Nausea?denies.?Rectal bleeding?denies.?Vomiting?denies.?Hematology:?bruising?denies.?petechiae?denies.?Swollen glands?none have been noted.?Genitourinary:?Frequent urination?three times a night.?Musculoskeletal:?Muscle aches?denies.?Painful joints?denies.?Sciatica?denies.?Weakness?denies.?Skin:?Itching?denies.?Rash?Groins and antecubital fossae and anterior chest.?Skin lesion(s)?denies.?Neurologic:?Difficulty speaking?denies.?Dizziness?denies.?Headache?denies.?Low back pain?denies.?Psychiatric:?Depressed mood?which is mild.? * Medical History:? * Surgical History:?negative c olonoscopy 2009GI biopsy 04/2019Tonsils removed at 7 years old * Hospitalization/Major Diagno stic Procedure:?Denies Past Hospitalization * Family History:?Father: dece ased 80 yrs, [...] is a?nonsmoker ?Additional Findings: Tobacco Non-User?Aggressive non-smoker ???Drugs/Alcohol:?Drugs?Have you used drugs other than those for medical reasons in the past 12 months??No ?Alcohol Screen?Did you have a drink containing alcohol in the past year??No ?Points?0 ?Interpretation?Negative ???He is from [facility] for several years.They have 2 step daughters. 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 He was born in [place]. * Medications:?TakingTerazosin HCl 2 MG Capsule TAKE 1 CAPSULE [...] rash no[Allergies Verified] Objective: * Vitals:?Ht: 68, Wt:148, BMI: 22.5, BP:139/81, HR:73, Temp:98.4, Wt-k.13. * ???Past Orders: Lab:Prostate Specific Antige n * Order Date 09/12/2023 02/16/2023 09/11/2021 Prostate Specific Antigen 3.09 (Ref Range: <0.05-4.0 ng/mL) 3.19 (Ref Range: <0.05-4.0 ng/mL) 5.39?H (Ref Range: <0.05-4.0 ng/mL) * Lab:Lipid Panel * Order Date 09/12/2023 09/07/2022 09/11/2021 Triglycerides 71 (Ref Range: <150 mg/dL) 77 (Ref Range: mg/dL) 77 (Ref Range: mg/dL) Cholesterol 224?H (Ref Range: <200 mg/dL) 202 (Ref Range: mg/dL) 210 (Ref Range: mg/dL) LDL Cholesterol Calculated 143?H (Ref Range: <100 mg/dL) 132 (Ref Range: mg/dl) 137 (Ref Range: mg/dl) HDL Cholesterol 67 (Ref Range: >40 mg/dL) 55 (Ref Range: mg/dL) 58 (Ref Range: mg/dL) * Lab:Comprehensive [place]. Pane l Fast * Order Date 09/12/2023 09/07/2022 [...] 18 (Ref Range: 0-40 U/L) Total Protein 6.4?L (Ref Range: 6.5-8.0 g/dL) 5.8?L (Ref Range: 6.5-8.0 g/dL) 6.1?L (Ref Range: 6.5-8.0 g/dL) Albumin Level 4.0 [...] 105 (Ref Range: 96-108 mmol/L) Carbon Dioxide 30?H (Ref Range: 22-29 mmol/L) 27 (Ref Range: 22-29 mmol/L) 30?H (Ref Range: 22-29 mmol/L) Anion Gap 10?L (Ref Range: 12-20) 10?L (Ref Range: 12-20) 11?L (Ref Range: 12-20) Blood Urea Nitrogen 10 [...] 14.0-18.0 g/dl) 14.3 (Ref Range: 14.0-18.0 g/dl) 13.7?L (Ref Range: 14.0-18.0 g/dl) Hematocrit 45.1 (Ref [...] Range: 45-73 %) Imm Gran Pct Auto 0.5?H (Ref Range: 0.0-0.4 %) 0.4 (Ref Range: 0.0-0.4 %) 0.4 (Ref Range: 0.0-0.4 %) Lymphocytes Percent Auto 24.5 (Ref Range: 20-40 %) 29.9 (Ref Range: 20-40 %) 28.3 (Ref Range: 20-40 %) Monocytes Percent Auto 10.8 (Ref Range: 2-11 %) 11.8?H (Ref Range: 2-11 %) 9.8 (Ref Range: 2-11 %) Eosinophils Percent Auto 9.1?H (Ref Range: 0-4 %) 4.7?H (Ref Range: 0-4 %) 6.7?H (Ref Range: 0-4 %) Basophils Percent Auto [...] (Ref Range: 0.1-1.2 X10*3/uL) Eosinophils Absolute Auto 0.6?H (Ref Range: 0.0-0.4 X10*3/uL) 0.3 (Ref Range: 0.0-0.4 X10*3/uL) 0.4 (Ref Range: 0.0-0.4 X10*3/uL) Basophils Absolute Auto 0.1 (Ref Range: 0.0-0.2 X10*3/uL) 0.0 (Ref Range: 0.0-0.2 X10*3/uL) 0.1 (Ref Range: 0.0-0.2 X10*3/uL) NRBC Abs Auto 0.000 (Ref Range: 0.0-0.012 X10*3/uL) 0.000 (Ref Range: 0.0-0.012 X10*3/uL) 0.000 (Ref Range: 0.0-0.012 X10*3/uL) * Examination: ???General Examination: ?GENERAL APPEARANCE:?pleasant, well nourished, well developed, in no acute distress, calm and relaxed , man.?HEAD:?atraumatic, normocephalic.?EYES:?eomi, perrla, anicteric, conjugate.?EARS:?normal.?NOSE:?septum intact.?ORAL CAVITY:?normal, unremarkable.?NECK/THYROID:?no jugular venous distention, no carotid bruit, thyroid normal.?LYMPH NODES:?no enlarged lymph nodes,spleen normal.?SKIN:?no suspicious lesions, anicteric, Pruritic scaling rash neck and upper sternum, antecubital fossae and both groins.?HEART:?no clicks, gallops, murmurs, or rubs, regular rhythm, S1, S2 normal, no s3, or vascular bruits.?LUNGS:?clear to auscultation .?BREASTS:??no masses palpable bilaterally.?ABDOMEN:?bowel sounds normal, no ascites, no organomegaly, no mass.?RECTAL EXAM:?normal tone , no masses palpable , no melena , no red blood , prostate normal , stool guaiac negative, 1 large skin tag.?MUSCULOSKELETAL:?extremities unremarkable, no clubbing, cyanosis or edema.?PERIPHERAL PULSES:?normal.?NEUROLOGIC:?alert and oriented, cranial nerves 2-12 grossly intact, deep tendon reflexes 2+ symmetrical, motor strength normal upper and lower extremities, sensory exam intact.?PSYCH:?alert, oriented , mood slightlydepressed.? Assessment: * Assessment: 1.?Hyperlipidemia, unspecifi ed hyperlipidemia type - E78.5, His total cholesterol is 224. This is slightly higher than in the past. We are reviewed his diet and nutrition. He will make an effort to avoid cholesterol rich food.?2.?BPH (benign prostatic hyperplasia) - N40.0, He rises from sleep once or twice a night. He is now under the care of a urologist. He is compliant with all of his medications.?3.?Depression - F32.9, His bupropion was discontinued. His depression has been addressed and is well controlled. He is able to conduct all of the activities of daily life. 4.?Erectile dysfunction - N52.9, This complaint is well controlled with oral medication. 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 He does not wish treatment at this time.?6.?Elevated PSA - R97.20, His PSA is now 3.09 and this problem has resolved.?7.?Fungal dermatitis - B36.9, Is given a prescription for clotrimazole betamethasone.? Plan: * Treatment: 2.?Others? Continue Terazosin HCl Capsule, 2 MG, TAKE 1 CAPSULE BY MOUTH EVERY DAY AT BEDTIME;?Continue buPROPion HCl Tablet, 100 MG, TAKE 1 TABLET BY MOUTH TWICE DAILY;?Start Clotrimazole-Betamethasone Cream, 1-0.05 %, 1 application, Externally, Twice a day, 14 days, 45 Gram, Refills 3.?? * Labs:? * ?Lab: URINE DIP STICK ? Value Reference Range ?SG 1.020 1.005 - 1.025 * ?pH 5.0 5.0 - 9.0 * ?CIELO 15 Negative - * ?NIT Negative Negative - * ?PRO 15 Negative - Trac e * ?GLU Negative Negative - * ?KET Negative Negative - * ?UBG 0.2 0.1 - 1.8 * ?STEF Negative 0.2 - 1.3 * ?BLD Negative Negative - * Procedure Codes:?72124 URINE -NO MICRO * Follow Up:?4 Months (Reason: OV) * Images: * Sign off status: Completed true * Provider:?Sebastián Aranda MD Date:?10/2023 Generated for Printi ng/Faleannag/eTransmitting on:?08/21/2024 07:33 AM EDT History and Physical Notes * [...]
--- OUTSIDE RECORDS SUMMARY | 2024-08-21 07:33 | XMS_ITS ---
Author Organization Sebastián Aranda III, MD Address [address] [place] [address] Care Team Providers Care Labor Relations Manager Name Role Phone Sebastián Aranda Primary Care Provider [phone] Allergies Allergen (clinical drug ingredient) Drug/Non Drug [...] 2 MG TAKE 1 CAPSULE BY [facility] EVERY DAY AT BEDTIME Active buPROPion HCl 100 MG TAKE 1 TABLET BY [facility] TWICE DAILY Active Social History Tobacco [...] Date Provider Diagnosis Sebastián Aranda III, MD [address] [place] [address] [place] [address] 01/22/2024 Sebastián Aranda BPH (benign prostati c [...] Next Appt Details Follow Up: As Scheduled, Eugene son: OV, Annual Exam Provider Name:Sebastián Aranda, 08/23/2024 02:45:00 PM, [address], [place], [address], Provider Name:Sebastián Aranda, 09/24/2024 10:00:00 AM, [address], [place], [address], Progress Notes * Og LOBATODOB: (68 yo M)Acc No.[id number]:01/22/2024 Progress Notes Patient:?Og LOBATO Provider:?Sebastián Aranda MD :1955???Age:68 Y???Sex:Male Rogerio e:01/22/2024 Address:[address] [place] [id number] Subjective: * Chief Complaints: * ???Benign prostatic [...] mentioned that his skin seems a bit police commanding officer and thinner than usual, and he has [...] Findings: Tobacco Non-User?Aggressive non-smoker ???He is from [facility] for several years.They have 2 step daughters. 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 He was born in [place]. * Medications:?TakingFinasteri de 5 MG Tablet 1 [...] AM) ? Value Reference Range ?Testosterone, Total 487 104-1865 - ng/dL ?Testosterone, Free 79.6 3 5.0-155.0 [...] Provider:?Sebastián Aranda MD Date:?10/2023 Generated for Donta conrad/Dewayne/eTransmitting on:?08/21/2024 07:33 AM EDT History and Physical Notes * HPI (History of Present Illness) Category Sub-Category Detail Notes COVID-19 Screening Questions Have you had any new onset fever, chills, cough, congestion, sore throat, shortness of breath, muscle aches?: No Have you been exposed to the virus withi n the last 10 days?: No Have you travelled internationally in [facility] last 10 days?: No Have you been [...]
--- OUTSIDE RECORDS SUMMARY | 2024-08-21 07:33 | XMS_ITS ---
Author Organization Sebastián Aranda III, MD Address [address] [place] [address] Care Team Providers Care Salt Washer Name Role Phone Sebastián Aranda Primary Care Provider Allergies Allergen (clinical drug ingredient) Drug/Non Drug Allergy documented on EMR Reaction Allergy Type Onset Date Status amoxicillin Amoxicillin rash Drug Allergy Act graeme REASON FOR VISIT Right pain in calf since flown back from [place] x 6 days Medications Medication SIG (Take, Route, Fr equency, Duration) Notes Start Date End Date Status Finasteride 5 MG 1 tablet Orally Once a day Active Tadalafil 5 MG 1 tablet as needed O rally Once a day Active buPROPion HCl 100 MG TAKE [address] [facility] TWICE DAILY Active Terazosin HCl 2 MG TAKE [address] [facility] EVERY DAY AT BEDTIME Active Social History Tobacco Use: Social History Observation Description Date Details (start date - stop date) Never Smoker NA - NA Sex Assigned At : Social History Observation Description Sex Assigned At Male Tobacco Use/Smoking Question Answer Notes Patient is a nonsmoker Additional Findings: Tobacco Non-User Aggressive non-smoker Vital Signs Temperature 98.2 degrees Fahrenheit 08/21/19 25 Blood pressure systolic 130 mm Hg 08/21/19 25 Blood pressure diastolic 79 mm Hg 025 Heart Rate 77 /min 08/20/2024 Height 68 in 08/20/2024 Weight 148 lbs 08/20/2024 BMI 22.5 kg/m2 08/20/2024 Encounters Encounter Location Date Provider Diagnosis Sebastián Aranda III, MD [address] [place] [address] [place] [address] 08/20/2024 Sebastián Aranda BPH (benign prostatic hyperplasia) N40.0 and Right calf pain M79.661 Assessments Encounter Date Diagnosis (ICD Code) Assessment Notes Treatment Notes Treatment Clinical Notes 08/20/2024 BPH (benign prostatic hyperplasia) (ICD-10 - N40.0) He rises from sleep once or twice a night. He is now under the care of a urologist. He is compliant with all of his medications. 08/20/2024 Right calf pain (ICD-10 - M79.661) Plan Of Treatment Medication Medication Name Sig Start Date Stop Date Notes Finasteride 5 MG 1 tablet Orally Once a day Tadalafil 5 MG 1 tablet as needed Orally Once a day buPROPion HCl 100 MG TAKE 1 TABLET BY MOUTH TWICE DAILY Terazosin HCl 2 MG TAKE 1 CAPSULE BY ME UT EVERY DAY AT BEDTIME Pending Test Test Name Order Date US LEG RT VENOUS DOPPLER 08/20/2024 Next Appt Details Follow Up: TV after Ultrasou nd at , Reason: TV Provider Name:Sebastián Aranda, 08/23/2024 02:45:00 PM, [address] [place] [address] [address], [place], [address], Provider Name:Sebastián Aranda, 09/24/2024 10:00:00 AM, [address] [place] [address] [place], [address], Progress Notes * Og LOBATODOB: 6 (68 yo M)Acc No.[id number]:08/20/2024 Patient:?Og LOBATO Provider:?Sebastián Aranda MD :1955???Age:68 Y???Sex:Male Rogerio e:08/20/2024 Address:[address] [place] [address] [facility] [id number] Subjective: * Chief Complaints: * ???1. Right pain in calf sin ce flown back from [facility] x 6 days. * HPI: ???COVID-19 Screening:?pain right calf mmay have begun [facility] the flight [facility], rightightt calf,? ?noct x 2, depression ok on fnasteride, last pills. ?Questions?Have you had any new onset fever, chills, cough, congestion, sore throat, shortness of breath, muscle aches??No * ROS:?General/Constitutional:?pain?only normal aches and pains.?Chills?denies.?Fatigue?admits.?Fever?denies.?ENT:?Decreased hearing?denies.?Respiratory:?Cough?denies.?Cardiovascular:?Chest pain with exertion?denies.?Dyspnea on exertion?denies.?Shortness of breath?denies.?Gastrointestinal:?Constipation?denies.?Decreased appetite?denies.?Diarrhea?denies.?Heartburn?denies.?Nausea?denies.?Rectal bleeding?denies.?Vomiting?denies.?Hematology:?bruising?denies.?petechiae?denies.?Swollen glands?none have been noted.?Genitourinary:?Frequent urination?denies.?Musculoskeletal:?Muscle aches?denies.?Painful joints?denies.?Sciatica?denies.?Weakness?denies.?Skin:?Itching?denies.?Rash?denies.?Skin lesion(s)?denies.?Neurologic:?Difficulty speaking?denies.?Dizziness?denies.?Headache?denies.?Low back pain?denies.?Psychiatric:?Depressed mood?denies.? * Medical History:?Shingles ag e 10, Depression, Dupuyten's contractures, Allergic amoxicillin, ED, BPH. * Surgical History:?negative c olonoscopy 2008, GI biopsy 04/2019, Tonsils removed at 7 years old , No history . * Hospitalization/Major Diagno stic Procedure:?No history . * Family History:?Father: dece ased 80 yrs, [...] Findings: Tobacco Non-User?Aggressive non-smoker ???He is from [facility] for several years.They have 2 step daughters. 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 He was born in [place]. * Medications:?Taking buPROPio n HCl 100 MG Tablet TAKE 1 TABLET BY MOUTH TWICE DAILY , Taking Terazosin HCl 2 MG Capsule TAKE 1 CAPSULE BY MOUTH EVERY DAY AT BEDTIME , Taking Finasteride 5 MG Tablet 1 tablet Orally Once a day , Taking Tadalafil 5 MG Tablet 1 tablet as needed Orally Once a day , Medication List reviewed and reconciled with the patient * Allergies:?Amoxicillin: rash . Objective: * Vitals:?Ht: 68, Wt:148, BMI: 22.5, BP:130/79, HR:77, Temp:98.2, Wt-k.13. * ???Past Orders: Lab:Prostate Specific Antige n * Collection Date 08/17/2024 11/22/2023 09/12/2023 Collection Time 08:26 AM 11:15 AM 10:51 AM Order Date 08/17/2024 11/22/2023 09/12/2023 Prostate Specific Antigen 4.48?H (Ref Range: <0.05-4.0 ng/mL) 2.95 (Ref Range: <0.05-4.0 ng/mL) 3.09 (Ref Range: <0.05-4.0 ng/mL) * Examination: ???General Examination: ?GENERAL APPEARANCE:?pleasant, well nourished, well developed, in no acute distress, calm and relaxed.?HEAD:?atraumatic, normocephalic.?EYES:?eomi, perrla, anicteric, conjugate.?EARS:?normal.?NOSE:?septum intact.?ORAL CAVITY:?normal, unremarkable.?NECK/THYROID:?no jugular venous distention, no carotid bruit, thyroid normal.?LYMPH NODES:?no enlarged lymph nodes,spleen normal.?SKIN:?no suspicious lesions, anicteric.?HEART:?no clicks, gallops, murmurs, or rubs, regular rhythm, S1, S2 normal, no s3, or vascular bruits.?LUNGS:?clear to auscultation .?BREASTS:??no masses palpable bilaterally.?ABDOMEN:?bowel sounds normal, no ascites, no organomegaly, no mass.?RECTAL EXAM:?not examined.?MUSCULOSKELETAL:?extremities unremarkable, no clubbing, cyanosis or edema.?PERIPHERAL PULSES:?normal.?NEUROLOGIC:?alert and oriented, cranial nerves 2-12 grossly intact, deep tendon reflexes 2+ symmetrical, motor strength normal upper and lower extremities, sensory exam intact.?PSYCH:?alert, oriented.? Assessment: * Assessment: 1.?BPH (benign prostatic hyp erplasia) - N40.0???Notes :He rises from sleep once or twice a night. He is now under the care of a urologist. He is compliant with all of his medications.???2.?Right calf pain - M79.661??? Plan: * Treatment: 2.?Right calf pain?Imaging: US LEG RT VENOUS DOPPLER 3.?Others? Continue buPROPion HCl Tablet, 100 MG, TAKE 1 TABLET BY MOUTH TWICE DAILY;?Continue Terazosin HCl Capsule, 2 MG, TAKE 1 CAPSULE BY MOUTH EVERY DAY AT BEDTIME.?? * Follow Up:?TV after Ultrasou nd at (Reason: TV) * Images: * The named appointment provid er may or may not be the originator of this progress note, and it is not deemed complete until electronically signed by the appointment provider. Sign off status: Pending * Provider:?Sebastián Aranda MD Date:?09/2024 Generated for Donta conrad/Dewayne/Corinnesmitting on:?08/21/2024 07:33 AM EDT History and Physical Notes * HPI (History of Present Illness) Category Sub-Category Detail Notes COVID-19 Screening Questions Have you had any new onset fever, chills, cough, congestion, sore throat, shortness of breath, muscle aches?: No Examination Category Sub-Category Detail Notes General Examination GENERAL APPEARANCE: pleasant , well nourished, well developed, in no acute distress, calm and relaxed HEAD: atraumatic, normocep halic EYES: eomi, perrla, [...]
== END 2024-08-21 07:32 | disposition home or self-care (01) ==
LOC: HO.US 07:31
PROVIDERS: PCP Internal Medicine Medical Oncology; Visit Provider Internal Medicine Medical Oncology
DX: M79.661 Pain in right lower leg (principal)
CPT/HCPCS: 93971

== ENCOUNTER → 2024-08-21 07:34 | Outpatient (BNV) | payer MEDICARE, SELFPAY | PROVIDERS: PCP Internal Medicine Medical Oncology; Visit Provider Radiology Diagnostic Radiology | DX: I82.431 Acute embolism and thrombosis of right popliteal vein (principal); I82.461 Acute embolism and thrombosis of right calf muscular vein; I82.451 Acute embolism and thrombosis of right peroneal vein | CPT/HCPCS: 93971 ==

== ENCOUNTER 2024-08-21 08:22 | Emergency (ER) | payer MEDICARE, SELFPAY ==
[2024-08-21 08:38] VITALS: BP 130/99; PULSE 77; RESP 18; TEMP 36.6; O2SAT 99; BMI 22.3
--- NOTE | 2024-08-21 08:58 | ED.GENADULT ---
HPI - General Adult General Chief complaint: General Medical Stated complaint: ? DVT R Leg Time Seen by Provider: 08/21/24 08:56 Source: patient Mode of arrival: ambulatory Limitations: no limitations History of Present Illness ED Provider: Chari Guajardo PA-C HPI narrative: Patient is a 68 year old assigned male at with a history of an enlarged prostate presenting to the emergency department today with right leg pain. Patient states that he recently returned from [facility] and has been having right leg pain. Patient states that he was seen by his PCP who ordered an ultrasound that showed DVT. Patient denies any dizziness, lightheadedness, abdominal pain, nausea, vomiting, fever, chills, blurry vision, double vision, loss of vision, chest pain, difficulty breathing, shortness of breath, back pain, night sweats, pain with urination, increased urinary frequency, increased urinary urgency, blood in his urine or stool, syncope or a near syncopal episode, recent trauma or falls, bowel incontinence, bladder incontinence, or any other complaints at this time. Related Data Home Medications ?Medication ?Instructions ?Recorded ?Confirmed bupropion HCl 100 mg tablet 100 mg PO BID 09/19/22 Previous Rx's ?Medication ?Instructions ?Recorded finasteride 5 mg tablet 5 mg PO DAILY 90 days #90 tabs 02/26/24 tadalafil 20 mg tablet (Cialis) 20 mg PO DAILY PRN sexual activity 08/19/24 90 days #40 tabs tadalafil 5 mg tablet (Cialis) 5 mg PO DAILY 90 days #90 tabs 08/19/24 apixaban 5 mg (74 tabs) tablets in 5 mg PO BID #74 ea 08/21/24 a dose pack (Eliquis DVT-PE Treat 30D Start) Allergies Allergy/AdvReac Type Severity Reaction Status Date / Time amoxicillin [Amoxicillin] Allergy Mild RASH Verified 08/21/24 08:42 Review of Systems Constitutional: Constitutional: Reports no additional constitutional complaints, Denies chills, Denies fever(s) and Denies night sweats Eyes: Eyes: Reports no additional eye complaints, Denies blurry vision, Denies change in vision, Denies diplopia, Denies eye discharge, Denies loss of vision and Denies eye pain ENT: Denies dizziness Cardiovascular: Cardiovascular: Reports no additional cardiovascular complaints, Denies chest pain, Denies lightheadedness, Denies Loss of Consciousness and Denies dyspnea Respiratory: Respiratory: Reports no additional respiratory complaints and Denies dyspnea Gastrointestinal: Gastrointestinal: Reports no additional gastrointestinal complaints, Denies abdominal pain, Denies melena, Denies hematochezia, Denies change in bowel habits and Denies change in stool character Genitourinary: Genitourinary: Reports no additional male genitourinary complaints, Denies hematuria, Denies oliguria, Denies difficulty urinating, Denies dysuria, Denies urinary frequency, Denies urinary hesitancy, Denies urinary incontinence and Denies urinary urgency Musculoskeletal: Musculoskeletal: Reports no additional musculoskeletal complaints, Denies numbness and Denies tingling Comments: right leg pain Neurologic: Denies dizziness, Denies loss of vision, Denies numbness and Denies tingling Psychiatric: Psychiatric: Reports no additional psychiatric complaints Endocrine: Endocrine: Reports no additional endocrine complaints Hematologic/Lymphatic: Hematologic/Lymphatic: Reports no additional hematologic/lymphatic complaints Allergic/Immunologic: Allergic/Immunologic: Reports no additional allergic/immunologic complaints PMFSH Past Medical History Attestation statement: The following information was validated with the patient. Source: old records reviewed and nursing notes reviewed Social History Social History Advance Directives: No Advance Directives Information Provided: Yes Physical Exam ED Vital Signs: Vital Signs - 24 hr 08/21/24 08:38 08/21/24 09:36 08/21/24 11:08 Temperature 97.9 F 97.9 F 97.9 F Pulse Rate 77 66 66 Respiratory Rate 18 18 18 Blood Pressure 130/99 H 144/94 H 144/94 H Pulse Oximetry 99 100 100 Oxygen Delivery Method Room Air Room Air Room Air BMI result Body Mass Index 22.3 Const General: cooperative, no acute distress, alert and awake Nutritional Appearance: well nourished Orientation/consciousness: patient oriented x3 HENMT Head: Yes normal to inspection and Yes atraumatic Ears: hearing grossly normal bilaterally and external ears normal General nose exam: Normal external nose present, no nasal discharge noted and no epistaxis Face and sinus: Yes normal facial exam, No abrasion and No laceration Mouth: Normal oral and palatal mucosa present, no drooling and no muffled voice Eyes General: appearance normal, both eyes and all related structures Periorbital: periorbital findings normal Eyelids: Yes eyelids normal Conjunctivae: conjunctivae normal Pupils: Equal, round and reactive pupils present EOM: EOMs intact bilaterally Neck Neck: Yes normal visual inspection, Yes full ROM and Yes no lymphadenopathy Resp Effort & Inspection: normal respiratory effort and able to speak in complete sentences Neuro General: patient oriented x3, moves all extremities and CN's II-XI intact bilaterally Cranial nerves: Yes Equal, round and reactive pupils present Cognition (Neuro): normal cognition Extrem General: Yes normal to inspection, Yes full ROM and Yes capillary refill normal Psych Appearance: grossly normal Mental Status: mental status grossly normal Affect: normal affect Attitude: cooperative Thought process: Normal thought process present Thought content: Normal thought content present Insight: Good insight present (Psych) Medical Decision Making Medical Decision Making MDM Narrative: Patient is a 68 year old assigned male at with a history of an enlarged prostate presenting to the emergency department today with right leg pain. Patient's physical exam was as noted in the physical exam portion of this note Patient's blood work was unremarkable. Patient's RLE US showed a right popliteal DVT. Patient's PCP and examination supervisor Dr. Aranda was at the bed side and requested specific heme labs which were obtained for him to follow up with him on an outpatient basis. I explained my physical exam findings as well as all test results to the patient. I answered all questions asked by the patient. I stressed the importance of the patient taking his medication as directed (either prescribed or as the over the counter packaging recommends). I stressed the importance of the patient following up with his primary care provider. I stressed the importance of the patient returning to the emergency department immediately if his symptoms were to worsen or if he were to develop any dizziness, shortness of breath, difficulty breathing, chest pain, blurry vision, loss of vision, nausea, vomiting, abdominal pain, fever, chills, back pain, or any other complaints. Patient verbalized agreement and understanding with this treatment plan and discharge. Patient started on Eliquis and given an Eliquis discount card as well as GoodRx cards incase the patient's insurance does not cover the prescription. Patient stated that he was not concerned about cost / being able to afford the medication. Differential Diagnosis Differential Diagnoses: The differential diagnosis associated with the presentation includes DVT Leg pain Admission/Observation Consideration of admission/observation: Escalation of care including admission/observation considered Patient would have been admitted to the hospital had his work up had any findings where hospital admission was appropriate and his clinical presentation warranted hospital admission. Consult Healthcare Provider Management of the patient was discussed with: Primary Care Provider (Spoke with Dr. Aranda as noted in the MDM Rationale portion of this note) Lab Data [facility] Lab Attestation statement: I reviewed the patient's lab results. My interpretation of these results are in the MDM Rationale portion of this note. 08/21/24 09:58 08/21/24 09:57 Labs: Lab Results 08/21/24 08/21/24 Range/Units 09:57 09:58 WBC 6.3 (4.8-10.8) X10*3/uL RBC 4.79 (4.60-5.80) X10*6/uL Hgb 13.7 L (14.0-18.0) g/dl Hct 41.9 L (42.0-52.0) % MCV 87.5 (80.0-98.0) fL MCH 28.6 (27.0-33.0) pg MCHC 32.7 (31.0-36.0) g/dl RDW 13.7 (11.0-16.0) % Plt Count 190 (160-400) X10*3/uL MPV 10.0 (9.4-12.4) fL Immature Gran % (Auto) 0.5 H (0.0-0.4) % Neut % (Auto) 60.1 (45-73) % Lymph % (Auto) 20.8 (20-40) % [place] % (Auto) 12.5 H (2-11) % Eos % (Auto) 5.2 H (0-4) % Baso % (Auto) 0.9 (0-2) % Lymph # (Auto) 1.3 (1.2-4.9) X10*3/uL [place] # (Auto) 0.8 (0.1-1.2) X10*3/uL Eos # (Auto) 0.3 (0.0-0.4) X10*3/uL Baso # (Auto) 0.1 (0.0-0.2) X10*3/uL Abs Immat Gran (auto) 0.03 (0.00-0.03) X10*3/uL Absolute Neuts (auto) 3.8 (2.0-8.3) x10*3/uL Absolute Nucleated RBC 0.000 (0.0-0.012) X10*3/uL Nucleated RBC % (auto) 0.0 (0.0-0.2) /100WBC PT 10.3 L (10.9-12.4) SEC INR 0.9 (0.9-1.1) APTT 30.0 (26.0-36.8) SEC Sodium 138 (135-145) mmol/L Potassium 4.5 (3.3-5.1) mmol/L Chloride 104 (96-108) mmol/L Carbon Dioxide 29 (22-29) mmol/L Anion Gap 10 L (12-20) BUN 10 (9-16) mg/dL Creatinine 0.93 (0.5-1.4) mg/dL Estim Creat Clear Calc 71.6 Estimated GFR > 60 Random Glucose 85 (60-115) mg/dL Calcium 9.0 (8.4-10.2) mg/dL Total Bilirubin 0.5 (0.0-1.0) mg/dL AST 24 (5-37) U/L ALT 35 (0-40) U/L Alkaline Phosphatase 70 (39-117) U/L Total Protein 6.3 L (6.5-8.0) g/dL Albumin 3.9 (3.5-5.0) g/dL Independent Interpretation I performed an independent interpretation of an: Ultrasound Interpretation: My interpretation is in agreement with the radiologist's impression of this imaging study. EXAMINATION: US LOWER EXTREMITY VEINS LIMITED FOLLOW UP RIGHT HISTORY: RIGHT CALF PAIN COMPARISON: There are no prior studies for comparison. TECHNIQUE: Duplex and color Doppler sonographic examination of the deep venous system of the right lower extremity was performed. FINDINGS: The common femoral and superficial femoral veins are patent demonstrating normal compressibility, spontaneous flow, and augmentation. There is nonocclusive thrombus within the popliteal vein. There is also thrombus within the gastrocnemius vein extending to its confluence with the femoral vein. The posterior tibial veins are patent. The peroneal veins are thrombosed. US/US venous duplex LE RT IMPRESSION: Nonocclusive popliteal DVT with additional thrombosis of the gastrocnemius and peroneal veins. Findings were communicated to Dr. Aranda on 08/21/2024 at 8:17 AM, and the patient was sent to the emergency room. Electronically signed by: Sebastián Agustin MD 08/21/2024 08:20 AM EDT RP Dictated By: Sebastián Agustin MD Signed By: Electronically signed by Sebastián Agustin MD 08/21/24 0820 Radiology Impression Discussion of test interpretation with radiology: I have reviewed the radiologist's reading. Discharge Plan Discharge Clinical Impression: DVT (deep venous thrombosis) Patient Disposition: Home, Self-Care Instructions: Deep Vein Thrombosis (DC), Safe Use of Anticoagulants (ED), Blood Thinners (ED) Additional Instructions: Follow up with your primary care provider. Return to the emergency department immediately if your symptoms worsen or if you develop any numbness, tingling, dizziness, shortness of breath, difficulty breathing, chest pain, blurry vision, loss of vision, nausea, vomiting, abdominal pain, fever, chills, back pain, or any other complaints. Please see the information below about our Patient Portal. If you are not yet enrolled in the [facility] Patient Portal, you will receive an enrollment email invitation following your visit to any [facility] care setting. You may also self-enroll in the Patient Portal by visiting our website: [email or web address] The following information is required to access the Patient Portal: - Your [facility] Medical Record Number - Your personal home email address (must match what is in your electronic medical record, Registration staff can assist with this) - Name - Date of Capabilities of the Patient Portal: - Message some providers - View upcoming appointments - Access your health summary, medical history, and visit history - View current conditions and allergies - View procedure and lab results - View your medications, including guidelines, side effects, and precautions - Complete pre-appointment questionnaires requested by your provider - Ready summary reports of your office visits and procedures To access the Patient Portal Mobile Evangelist, follow these directions: - Search [employer] in the Evangelist Store or [employer] Store - Download the Evangelist - Search for [facility] - Enter your login/password Prescriptions: New Eliquis DVT-PE Treat 30D Start 5 mg (74 tabs) tablets,dose pack 5 mg PO BID Qty: 74 0RF No Action finasteride 5 mg tablet 5 mg PO DAILY 90 Days Qty: 90 3RF bupropion HCl 100 mg tablet 100 mg PO BID tadalafil [Cialis] 5 mg tablet 5 mg PO DAILY 90 Days Qty: 90 3RF tadalafil [Cialis] 20 mg tablet 20 mg PO DAILY PRN (Reason: sexual activity) 90 Days Qty: 40 3RF Rx Instructions: administer approximately 30-60 min before sexual activity; do not use more than 1 dose per 24hrs Referrals: Sebastián Aranda MD [Primary Care Provider] - Interventions: ED Discharge Assessment Last Done: 08/21/24 11:08 Discharge Date/Time: 08/21/24 11:14 Print Language: Sinhala
--- OUTSIDE RECORDS SUMMARY | 2024-08-21 09:07 | XMS_ITS ---
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 Name Role Phone Sebastián Aranda Primary Care Provider REASON FOR VISIT U/S showed clot in leg Social History Sex Assigned At : Social History Observation Description Sex Assigned At Male Encounters Encounter Location Date Provider Diagnosis Sebastián Aranda III, MD [address] [place] [address] [place] [id number] 08/21/2024 Sebastián Aranda Plan Of Treatment Next Appt Details Provider Name:Sebastián Aranda, 08/23/2024 02:45:00 PM, [address] [place] [address] [place], [address], Provider Name:Sebastián Aranda, 09/24/2024 10:00:00 AM, [address] [place] [address] [place], [address], Progress Notes * Og LOBATODOB: 6 (68 yo M)Acc No.[id number]:08/21/2024 Patient:?Og LOBATO :1955???Age:68 Y???Sex:Male Address:[address] [place] [address], [place] [address] * true * Date:? Generated for Donta conrad/Dewayne/Cristofer on:?08/21/2024 09:07 AM EDT
--- OUTSIDE RECORDS SUMMARY | 2024-08-21 09:07 | XMS_ITS | Patient Health Record ---
Author Organization Sebastián Aranda III, MD Address [address] [address] Care Team Providers Care Animated Cartoons Painter Name Role Phone Sebastián Aranda Primary Care Provider [phone] Allergies Allergen (clinical drug ingredient) Drug/Non Drug [...] ff Reviewed date:09/22/2023 10:27:48 AM Interpretation: Performing Lab:[facility], [address] [place] [phone] Notes/Report: White Blood Count 6.5 4.8-10.8 X10*3/uL [...] NRBC Abs Auto 0.000 0.0-0.012 X10*3/uL Comprehensive [place]. Panel Fa st Reviewed date:09/22/2023 10:27:48 AM Interpretation: Performing Lab:[facility], [address] [place] [phone] Notes/Report: Sodium 141 135-145 mmol/L Potassium 4.8 3.3-5.1 mmol/L Chloride 106 96-108 mmol/L Carbon Dioxide 30 22-29 mmol/L Anion Gap 10 12-20 Blood Urea Nitrogen 10 9-16 mg/dL Creatinine 1.05 0.5-1.4 mg/dL Estimated Glomerular Filt Rate > 60 NOTE: For -Azerbaijani individuals, multiply the result by 1.210. Chronic [...] Panel Reviewed date:09/22/2023 10:27:48 AM Interpretation: Performing Lab:[address] [address] Notes/Report: Triglycerides 71 <150 mg/dL Desirable Triglyceride: [...] Antigen Reviewed date:09/22/2023 10:27:48 AM Interpretation: Performing Lab:[facility], [address] [place] [phone] Notes/Report: Prostate Specific Antigen 3.09 <0.05-4.0 ng/mL PSA methodology: Bermeo Alinity i Chemiluminescent Microparticle Immunoassay (CMIA) Prostate Specific Antigen Reviewed date:12/20/2023 10:11:16 AM Interpretation: Performing Lab:[facility], [address] [place] [phone] Notes/Report: Prostate Specific Antigen 2.95 <0.05-4.0 ng/mL PSA methodology: Bermeo Alinity i Chemiluminescent Microparticle Immunoassay (CMIA) Testosterone, Free/Total Reviewed date:12/20/2023 10:11:16 AM Interpretation: Performing Lab:[facility], [address] [place] [phone] Notes/Report: Testosterone, Total 304 223-4287 ng/dL Men with clinically significant hypogonadal symptoms and testosterone values repeatedly in the range of the 200-300 ng/dL or less, may benefit from testosterone treatment after adequate risk and benefits counseling. For additional information, please refer to http://education.Smarty Ants/fa q/ TotalTestosteroneM [email or web address] (This link is being provided for informational/ educational purposes only.) This test was developed and its analytical performance characteristics have been determined by [facility] [place], [place]. It has not been cleared or approved by the U.S. Food and Drug Administration. This assay has been validated pursuant to the CLIA regulations and is used for clinical purposes. Testosterone, Free 79.6 35.0-155.0 pg/mL This test was developed and its analytical performance characteristics have been determined by [facility] [place], [place]. It has not been cleared or approved by the U.S. Food and Drug Administration. This assay has been validated pursuant to the CLIA regulations and is used for clinical purposes. THIS TEST WAS PERFORMED AT: [employer] DAX MCCULLOUGH MD,PHD Prostate Specific Antigen Reviewed date:08/17/2024 08:41:07 PM Interpretation: Performing Lab:[facility], [address] [place] [phone] Notes/Report: Prostate Specific Antigen 4.48 <0.05-4.0 ng/mL PSA methodology: Bermeo Alinity i Chemiluminescent Microparticle Immunoassay (CMIA) US venous duplex LE RT (Not yet reviewed by provider) Interpretation: Performing Lab: Notes/Report: [address] [address] Ultrasound Report Signed Patient: Og Lobato MR#: [id number] : 1955 Acct:[id number] Age/Sex: 68 / M ADM Date: 08/21/24 Loc: HO.US Attending Dr: Sebastián Aranda MD Ordering Physician: Sebastián Aranda MD Date of Service: 08/21/24 Procedure(s): US venous duplex LE RT Accession Number(s): [id number] cc: Sebastián Aranda MD EXAMINATION: US LOWER EXTREMITY VEINS LIMITED FOLLOW UP RIGHT HISTORY: RIGHT CALF PAIN COMPARISON: There are no prior studies for comparison. TECHNIQUE: Duplex and color Doppler sonographic examination of the deep venous system of the right lower extremity was performed. FINDINGS: The common femoral and superficial femoral veins are patent demonstrating normal compressibility, spontaneous flow, and augmentation. There is nonocclusive thrombus within the popliteal vein. There is also thrombus within the gastrocnemius vein extending to its confluence with the femoral vein. The posterior tibial veins are patent. The peroneal veins are thrombosed. US/US venous duplex LE RT IMPRESSION: Nonocclusive popliteal DVT with additional thrombosis of the gastrocnemius and peroneal veins. Findings were communicated to Dr. Aranda on 08/21/2024 at 8:17 AM, and the patient was sent to the emergency room. Electronically signed by: Sebastián Agustin MD 08/21/2024 08:20 AM EDT Dictated By: Sebastián Agustin MD Signed By: <Electronically signed by Sebastián Agustin MD in OV> 08/21/24 0820 DD/ 0734 TD/TT: 08/21/24 0801 Card Game Operator: [place] [id number] Ultrasound Report Signed Patient: Clif Lobato MR#: [id number] : 1955 Acct:[id number] Age/Sex: 68 / M ADM Date: 08/21/24 Loc: . Attending Dr: Sebastián Aranda MD Ordering Physician: Sebastián Aranda MD Date of Service: 08/21/24 Procedure(s): US jessica ous duplex LE RT Accession Number(s): [id number] cc: Sebastián Aranda MD EXAMINATION: US LOWE R EXTREMITY VEINS LIMITED FOLLOW UP RIGHT HISTORY: RIGHT CALF PAIN COMPARISON: There ar e no prior studies for comparison. TECHNIQUE: Duplex an d color Doppler sonographic examination of the deep venous system o f the right lower extremity was performed. FINDINGS: The common femoral a nd superficial femoral veins are patent demonstrating normal compressibility, spontaneous flow, and augmentation. There is nonocclusive thrombus within the popliteal vein. There is also thrombus within the gastrocnemius vein extending to its confluence with the femoral vein. The posterior tibial veins are patent. The peroneal veins are thrombosed. ___ US/US venous duplex LE RT IMPRESSION: Nonocclusive poplite al DVT with additional thrombosis of the gastrocnemius and peroneal veins. Findings were communicated to Dr. Aranda on 08/21/2024 at 8:17 AM, and the patient was sent to the emergency room. Electronically johnie d by: Sebastián Agustin MD 08/21/2024 08:20 AM EDT Dictated By: Sebastián Agustin MD Signed By: <Electronically signed by Sebastián Agustin MD in OV> 08/21/24 0820 DD/ 0734 TD/TT: 08/21/24 0801 Card Game Operator: Reason For Referral No Information Medications Medication SIG (Take, Route, Fr equency, Duration) Notes Start Date End Date Status Finasteride 5 MG 1 tablet Orally Once a day Active Tadalafil 5 MG 1 tablet as needed O rally Once a day Active buPROPion HCl 100 MG TAKE 1 TABLET BY [facility] TWICE DAILY Active Terazosin HCl 2 MG TAKE 1 CAPSULE BY [facility] EVERY DAY AT BEDTIME Active Immunizations Vaccine Route Administration Date Status [...] Problem Status W/U Status Risk Notes Problem 81162922 Depression (F32.9) Active confirmed His bupropion was discontinued. His depression has been addressed and is well controlled. He is able to conduct all of the activities of daily life. 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 He does not wish treatment at this time. Problem 693822093 BPH (benign prostatic hyperplasia) (N40.0) Active confirmed He rises from sleep once or twice a night. He is now under the care of a urologist. He is compliant with all of his medications. Problem 240917324 Erectile dysfunction (N52.9) Active confirmed This complaint is well controlled with oral medication. However, he says he hardly ever has a opportunity to use it Problem 99392893 Penicillin allergy (Z88.0) Active confirmed He is aware of the allergy and avoids penicillin. Problem 343207566127580 History of herpes zoster (Z86.19) Active confirmed He has had no further outbreaks of this problem. Problem 7833820368194617 Right calf pain (M79.661) Active confirmed Problem Hyperlipidaemia (61082354) Hyperlipidemia, unspecified hyperlipidemia type (E78.5) Active confirmed Comprehensive blood work is being done periodically. No change in his regimen was made. Vital Signs Heart Rate 77 /min 08/20/2024 Temperature 98.2 degrees Fahrenheit 08/20/2024 Blood pressure diastolic 79 mm Hg 08/20/2024 Height 68 in 08/20/2024 Blood pressure systolic 130 mm Hg 08/20/2024 Weight 148 lbs 08/20/2024 BMI 22.5 kg/m2 08/20/2024 Encounters Encounter Location Date Provider Diagnosis Sebastián Aranda III, MD [address] [place] [address] [address] [place], [place] [address] 08/20/2024 Sebastián Aranda BPH (benign prostati c hyperplasia) N40.0 and Right calf pain M79.661 Sebastián Aranda III, MD [address] [place] [address] [address] [place] [address] 09/22/2023 Sebastián Aranda BPH (benign prostati c hyperplasia) N40.0 ; Hyperlipidemia, unspecified hyperlipidemia type E78.5 ; Depression F32.9 ; Erectile dysfunction N52.9 ; Palmar fascial fibromatosis [Dupuytren] M72.0 ; Elevated PSA R97.20 and Fungal dermatitis B36.9 Sebastián Aranda III, MD [address] [place] [address] [place] [address] 01/22/2024 Sebastián Aranda BPH (benign prostati c hyperplasia) N40.0 ; Depression F32.9 ; Hyperlipidemia, unspecified hyperlipidemia type E78.5 ; Erectile dysfunction N52.9 and Palmar fascial fibromatosis [Dupuytren] M72.0 Sebastián Aranda III, MD [address] [place] [address] [place] [address] 08/29/2023 Sebastián Aranda III, MD [address] [place] [address] [place] [address] 09/13/2023 Sebastián Aranda III, MD [address] [place] [address] [place] [address] 08/21/2024 Sebastián Aranda Assessments Encounter Date Diagnosis (ICD Code) Assessment Notes Treat ment Notes Treatment Clinical Notes 08/20/2024 BPH (benign prostati c hyperplasia) (ICD-10 - N40.0) He rises from sleep once or twice a night. He is now under the care of a urologist. He is compliant with all of his medications. 09/22/2023 BPH (benign prostati c hyperplasia) (ICD-10 [...] 08/20/2024 Right calf pain (ICD-10 - M79.661) 09/22/2023 Depression (ICD-10 - F32.9) His bupropion [...] (COMPREHENSIVE METABOLI C) 01/22/2024 PSA, TOTAL 01/22/2024 US LEG RT VENOUS DOPPLER 08/20/2024 CBC WITH AUTO DIFF 01/22/2024 Lipid Panel 01/22/2024 US venous duplex LE RT 08/21/2024 Next Appt Details Provider Name:Sebastián Aranda, 08/23/2024 02:45:00 PM, [address] [facility] [address], [place], [address], Provider Name:Sebastián Aranda, 09/24/2024 10:00:00 AM, [address] [facility] [address], [place], [address], Insurance Providers Payer Name Payer Address Payer Phone Subscriber Number Group Number Insured Name Patient Relationship to Insured Coverage Start Date Coverage End Date [facility] [address] [facility] [address] [facility] [place] [phone] [id number] Og Lobato Self - patient is the insured MEDICARE NGS [address] [place] [address] [id number] Og Lobato Self - patient is the insured Medical (General) History Medical History History ICD Code shingles age 10 depression Dupuyten's contractures allergic amoxicillin ED BPH Surgical History Surgery Date(Month/Year) No history Tonsils removed at 7 years old GI biopsy 04/2019 negative colonoscopy 2008 Hospitalization History Reason Date(Month/Year) No history
[2024-08-21 09:36] VITALS: BP 144/94; PULSE 66; RESP 18; TEMP 36.6; O2SAT 100
[2024-08-21 10:06] LABS: MANUAL DIFF FLAG NO
[2024-08-21 10:08] LABS: Basophils Absolute Auto 0.1 X10*3/uL (0.0-0.2); Basophils Percent Auto 0.9 % (0-2); Eosinophils Absolute Auto 0.3 X10*3/uL (0.0-0.4); Eosinophils Percent Auto 5.2 % (0-4); Hematocrit 41.9 % (42.0-52.0); Hemoglobin 13.7 g/dl (14.0-18.0); Imm Gran Abs Auto 0.03 X10*3/uL (0.00-0.03); Imm Gran Pct Auto 0.5 % (0.0-0.4); Lymphocytes Absolute Auto 1.3 X10*3/uL (1.2-4.9); Lymphocytes Percent Auto 20.8 % (20-40); Mean Corpuscular HGB Conc 32.7 g/dl (31.0-36.0); Mean Corpuscular Hemoglobin 28.6 pg (27.0-33.0); Mean Corpuscular Volume 87.5 fL (80.0-98.0); Monocytes Absolute Auto 0.8 X10*3/uL (0.1-1.2); Monocytes Percent Auto 12.5 % (2-11); Neutrophils Absolute Auto 3.8 x10*3/uL (2.0-8.3); Neutrophils Percent Auto 60.1 % (45-73); Platelet Count 190 X10*3/uL (160-400); Red Blood Count 4.79 X10*6/uL (4.60-5.80); Red Cell Distribution Width 13.7 % (11.0-16.0); White Blood Count 6.3 X10*3/uL (4.8-10.8)
[2024-08-21 10:13] LABS: INTERNATIONAL NORM RATIO 0.9 (0.9-1.1); Prothrombin Time 10.3 SEC (10.9-12.4)
[2024-08-21 10:32] LABS: Alanine Aminotransferase 35 U/L (0-40); Albumin Level 3.9 g/dL (3.5-5.0); Alkaline Phosphatase 70 U/L (39-117); Anion Gap 10 (12-20); Aspartate Amino Transferase 24 U/L (5-37); Bilirubin Total 0.5 mg/dL (0.0-1.0); Blood Urea Nitrogen 10 mg/dL (9-16); Carbon Dioxide 29 mmol/L (22-29); Chloride 104 mmol/L (96-108); Creatinine Clr Calc Pharmacy 71.6; Estimated Glomerular Filt Rate > 60; Glucose Random 85 mg/dL (60-115); Potassium 4.5 mmol/L (3.3-5.1); Sodium 138 mmol/L (135-145); Total Protein 6.3 g/dL (6.5-8.0)
[2024-08-21 11:08] VITALS: BP 144/94; PULSE 66; RESP 18; TEMP 36.6; O2SAT 100
[2024-08-24 21:44] LABS: Protein C Activity 117 % normal (70-180); Protein S Activity rflx Tot&Fr 95 % normal (70-150)
[2024-08-24 21:48] LABS: Anti-Thrombin III Activity 104 % normal (80-135)
[2024-08-25 12:13] LABS: PTT (LAC) Screen 37 sec (<=40)
[2024-08-26 00:24] LABS: Anti-Thrombin III Antigen 90 % normal (80-120)
[2024-08-28 19:34] LABS: Factor V Leiden NEGATIVE
[2024-08-29 16:43] LABS: Prothrombin 20210A NEGATIVE
== END 2024-08-21 11:14 | disposition home or self-care (01) ==
PROVIDERS: Physician Assistant Medical; Emergency Provider Emergency Medicine; PCP Internal Medicine Medical Oncology
DX: I82.401 Acute embolism and thrombosis of unspecified deep veins of right lower extremity (principal); R60.0 Localized edema; M79.604 Pain in right leg; Z79.899 Other long term (current) drug therapy
CPT/HCPCS: 36415; 80053; 81240; 81241; 85025; 85300; 85301; 85302; 85303; 85306; 85597; 85598; 85610; 85613; 85730; 93971; 99283; 99284

== ENCOUNTER 2024-09-20 08:48 | Outpatient (REF) | payer MEDICARE, SELFPAY ==
--- OUTSIDE RECORDS SUMMARY | 2024-09-20 09:03 | XMS_ITS | Patient Health Record ---
Author Organization Sebastián Aranda III, MD Address [address] [place] [address] Care Team Providers Care Soyfreeze Operator Name Role Phone Sebastián Aranda Primary Care Provider [phone] Allergies Allergen (clinical drug ingredient) Drug/Non Drug [...] 0.2 - 1.3 BLD Negative Negative - Prostate Specific Antigen Reviewed date:12/20/2023 10:11:16 AM Interpretation: Performing Lab:[facility], [address] [place] [address] Notes/Report: Prostate Specific Antigen 2.95 <0.05-4.0 ng/mL PSA methodology: Bermeo Alinity i Chemiluminescent Microparticle Immunoassay (CMIA) Testosterone, Free/Total Reviewed date:12/20/2023 10:11:16 AM Interpretation: Performing Lab:[facility], [address] [place] [address] Notes/Report: Testosterone, Total 185 805-0062 ng/dL Men with clinically significant hypogonadal symptoms and testosterone values repeatedly in the range of the 200-300 ng/dL or less, may benefit from testosterone treatment after adequate risk and benefits counseling. For additional information, please refer to http://education.[employer].2359 Media/faq/ TotalTestosteroneLCMSM [email or web address] (This link is being provided for informational/ educational purposes only.) This test was developed and its analytical performance characteristics have been determined by [facility] [place], [place]. It has not been cleared or approved by the U.S. Food and Drug Administration. This assay has been validated pursuant to the CLIA regulations and is used for clinical purposes. Testosterone, Free 79.6 35.0-155.0 pg/mL This test was developed and its analytical performance characteristics have been determined by [facility] [place], [place]. It has not been cleared or approved by the U.S. Food and Drug Administration. This assay has been validated pursuant to the CLIA regulations and is used for clinical purposes. THIS TEST WAS PERFORMED AT: [facility] [address] DAX MCCULLOUGH MD,PHD Prostate Specific Antigen Reviewed date:08/17/2024 08:41:07 PM Interpretation: Performing Lab:[address] [address] Notes/Report: Prostate Specific Antigen 4.48 <0.05-4.0 ng/mL PSA methodology: Bermeo Alinity i Chemiluminescent Microparticle Immunoassay (CMIA) Protein C Activity Reflex Ag (Not yet reviewed by provider) Interpretation: Performing Lab:[address] [address] Notes/Report: Protein C Activity 117 70-180 % normal THIS TEST WAS PERFORMED AT: [facility] [address] DAX MCCULLUOGH MD,PHD Protein C Antigen Add TNP Protein C Antigen TNP Protein S Activity reflex Ag (Not yet reviewed by provider) Interpretation: Performing Lab:[facility], [address] [place] [address] Notes/Report: Protein S Activity rflx Tot Fr 95 70-150 % normal THIS TEST WAS PERFORMED AT: [facility] [address] DAX MCCULLOUGH MD,PHD Protein S Total (Antigenic) TNP Protein S Free Antigen TNP Anti-Thrombin III Activity ( Not yet reviewed by provider) Interpretation: Performing Lab:[facility], [address] [place] [address] Notes/Report: Anti-Thrombin III Activity 104 80-135 % normal THIS TEST WAS PERFORMED AT: [facility]/[address] DAX MCCULLOUGH MD,PHD Anti-Thrombin III Antigen (N ot yet reviewed by provider) Interpretation: Performing Lab:[facility], [address] [place] [address] Notes/Report: Anti-Thrombin III Antigen 90 80-120 % normal THIS TEST WAS PERFORMED AT: [facility]/[address] DAX MCCULLOUGH MD,PHD Factor V Leiden (Not yet rev iewed by provider) Interpretation: Performing Lab:[facility], [address] [place] [address] Notes/Report: Factor V Leiden NEGATIVE FACTOR V LEI DEN (R506Q) VARIANT NOT DETECTED Factor V Leiden Interpretation See Below INTERPRETATION: This individual is negative (normal) for the Factor V Leiden (R506Q) variant in the Factor V gene. Increased risk of thrombophilia can be caused by a variety of genetic and non-genetic factors not screened for by this assay. Laboratory testing supervised and results monitored by Joshua Ramirez, Ph.D., [facility], [facility], [facility]. VARIANT ANALYSIS: The Factor V Leiden (R506Q) variant [NM_000130.2:c.1601G>A (p.R534Q)] in the Factor V gene is one of the most common causes of inherited thrombophilia. This variant causes resistance to degradation of activated Factor V protein by activated Protein C (APC). The Factor V Leiden (R506Q) variant is detected by amplification of the selected region of the Factor V gene by polymerase chain reaction (PCR) and fluorescent probe hybridization to the targeted region, followed by end-point analysis with a real time PCR system. Although rare, false positive or false negative results may occur. All results should be interpreted in context of clinical findings, relevant history, and other laboratory data. Health care providers, please contact your local [facility] genetic counselor or call [employer] ([phone]) for assistance with interpretation of these results. This test was developed and its analytical performance characteristics have been determined by [facility]. It has not been cleared or approved by the FDA. This assay has been validated pursuant to the CLIA regulations and is used for clinical purposes. THIS TEST WAS PERFORMED AT: [facility] [address] [place] [address] EVONNE FIGUEROA MD,PHD,SANTO Prothrombin 55359E (Not yet reviewed by provider) Interpretation: Performing Lab:[facility], [address] [place] [address] Notes/Report: Prothrombin 90432X NEGATIVE RESULT: G 25476R VARIANT NOT DETECTED [id number] See Below INTERPRETATION: This individual is negative (normal) for the S89603L variant in the Prothrombin/Factor II gene. Increased risk of thrombophilia can be caused by a variety of genetic and non-genetic factors not screened for by this assay. Laboratory testing supervised and results monitored by Joshua Ramirez, Ph.D., [facility], [facility], [facility]. The O60690N mutation [FV437646.1: g.66037M>A (c.*97G>A)] in the Prothrombin/Factor II gene is the second most common inherited risk factor for thrombosis occurring in approximately 2% of Caucasians. Presence of the mutation is associated with an elevation of prothrombin levels to about 30% above normal in heterozygotes and to 70% above normal in homozygotes. Prothrombin (B55932E) mutations are detected by amplification of their selected gene regions by polymerase chain reaction (PCR) and fluorescent probe hybridization to the targeted region, followed by melting curve analysis with a real time PCR system. Although rare, false positive or false negative results may occur. All results should be interpreted in context of clinical findings, relevant history, and other laboratory data. Health care providers, please contact your local [facility] genetic counselor or call [phone] ([phone]) for assistance with interpretation of these results. This test was developed and its analytical performance characteristics have been determined by [facility]. It has not been cleared or approved by the FDA. This assay has been validated pursuant to the CLIA regulations and is used for clinical purposes. THIS TEST WAS PERFORMED AT: [email or web address] [facility] [place] [address] [place] [address] EVONNE FIGUEROA MD,PHD,SANTO Lupus Anticoagulant Panel (N ot yet reviewed by provider) Interpretation: Performing Lab:[facility], [address] [place] [address] Notes/Report: Lupus Interpretation see note A Lupus Anticoagulant is not detected. Reference Range: Not Detected For additional information, please refer to http://education.[employer]/faq/FA Q01v2 (This link is being provided for informational/ educational purposes only.) This interpretation is based on the following test results. PTT (LAC) Screen 37 <=40 sec DRVVT Screen 31 <=45 sec THIS TEST WAS PERFORMED AT: [facility] [address] [address] DAX MCCULLOUGH MD,PHD DRVVT Confirmation TNP DRVVT 1:1 Mix TNP DRVVT 1:1 Mix Interpretation TNP Hexagonal Phase Neutralization TNP Thrombin Clotting Time TNP Complete Blood Count Auto Di ff Reviewed date:08/25/2024 07:54:07 PM Interpretation: Performing Lab:[facility], [address] [place] [address] Notes/Report: White Blood Count 6.3 4.8-10.8 X10*3/uL Red Blood Count 4.79 4.60-5.80 X10*6/uL Hemoglobin 13.7 14.0-18.0 g/dl Hematocrit 41.9 42.0-52.0 % Mean Corpuscular Volume 87.5 80.0-98.0 fL Mean Corpuscular Hemoglobin 28.6 27.0-33.0 pg Mean Corpuscular HGB Conc 32.7 31.0-36.0 g/dl Red Cell Distribution Width 13.7 11.0-16.0 % Platelet Count 190 160-400 X10*3/uL Mean Platelet Volume 10.0 9.4-12.4 fL Neutrophils Percent Auto 60.1 45-73 % Imm Gran Pct Auto 0.5 0.0-0.4 % Lymphocytes Percent Auto 20.8 20-40 % Monocytes Percent Auto 12.5 2-11 % Eosinophils Percent Auto 5.2 0-4 % Basophils Percent Auto 0.9 0-2 % NRBC Pct Auto 0.0 0.0-0.2 /100WBC Neutrophils Absolute Auto 3.8 2.0-8.3 x10*3/uL Imm Gran Abs Auto 0.03 0.00-0.03 X10*3/uL Lymphocytes Absolute Auto 1.3 1.2-4.9 X10*3/uL Monocytes Absolute Auto 0.8 0.1-1.2 X10*3/uL Eosinophils Absolute Auto 0.3 0.0-0.4 X10*3/uL Basophils Absolute Auto 0.1 0.0-0.2 X10*3/uL NRBC Abs Auto 0.000 0.0-0.012 X10*3/uL Prothrombin Time INR Reviewed date:08/25/2024 07:54:07 PM Interpretation: Performing Lab:[address] [address] Notes/Report: Prothrombin Time 10.3 10.9-12.4 SEC INTERNATIONAL NORM RATIO 0.9 0.9-1.1 INTERNATIONAL NORMALIZED RATIO (INR) REFERENCE RANGES Reference Range For patients not on anticoagulant therapy: 0.9 - 1.1 INR ranges for oral anticoagulant therapy: For prevention and treatment of venous thrombosis and pulmonary embolism: 2.0 - 3.0 For acute myocardial infarction with aspirin therapy: 2.0 - 3.0 For acute myocardial infarction without aspirin therapy: 3.0 - 4.0 For patients with mechanical prosthetic heart valves: 2.5 - 3.5 Partial Thromboplastin Time Reviewed date:08/25/2024 07:54:07 PM Interpretation: Performing Lab:[address] [place] [address] Notes/Report: Partial Thromboplastin Time 30.0 26.0-36.8 SEC For information regarding the monitoring of direct thrombin inhibitors, please refer to Pharmacy. Comprehensive Met. Panel Reviewed date:08/25/2024 07:54:07 PM Interpretation: Performing Lab:[facility], [address] [place] [address] Notes/Report: Sodium 138 135-145 mmol/L Potassium 4.5 3.3-5.1 mmol/L Chloride 104 96-108 mmol/L Carbon Dioxide 29 22-29 mmol/L Anion Gap 10 12-20 Blood Urea Nitrogen 10 9-16 mg/dL Creatinine 0.93 0.5-1.4 mg/dL Creatinine Clr Calc Pharmacy 71.6 eGFR (calculated from the MDRD study equation) and eCrCl (calculated from the Cockcroft-Gault equation) are based on different parameters and may not yield comparable results. If eCrCl result is absurd, please check patient's height/weight. Estimated Glomerular Filt Rate > 60 Chronic Kidney Disease: Estimated GFR < 60 mL/min/1.73m2 Severe Kidney Disease: Estimated GFR < 15 mL/min/1.73m2 Glucose Random 85 60-115 mg/dL Calcium 9.0 8.4-10.2 mg/dL Bilirubin Total 0.5 0.0-1.0 mg/dL Aspartate Amino Transferase 24 5-37 U/L Alanine Aminotransferase 35 0-40 U/L Total Protein 6.3 6.5-8.0 g/dL Albumin Level 3.9 3.5-5.0 g/dL Alkaline Phosphatase 70 39-117 U/L US venous duplex LE RT Reviewed date:08/25/2024 07:54:07 PM Interpretation: Performing Lab: Notes/Report: [address] [address] Ultrasound Report Signed Patient: Og Lobato MR#: [id number] 1565 : 1955 Acct:[id number] Age/Sex: 68 / M ADM Date: 08/21/24 Loc: HO.US Attending Dr: Sebastián Aranda MD Ordering Physician: Sebastián Aranda MD Date of Service: 08/21/24 Procedure(s): US venous duplex LE RT Accession Number(s): [id number] cc: Sebastián Aranda MD EXAMINATION: US LOWER [...] Sebastián Agustin MD 08/21/2024 08:20 AM EDT RP Dictated By: Sebastián Agustin MD Signed By: <Electronically signed by Sebastián Agustin MD in OV> 08/21/24 0820 DD/ 0734 TD/TT: 08/21/24 0801 Recovery Operator Helper: [place] [address] Ultrasound Report Signed Patient: Og Lobato MR#: [id number] 1565 : 1955 Acct:[id number] Age/Sex: 68 / M ADM Date: 08/21/24 Loc: . Attending Dr: Sebastián Aranda MD Ordering Physician: Sebastián Aranda MD Date of Service: 08/21/24 Procedure(s): US venous duplex LE RT Accession Number(s): [id number] cc: Sebastián Aranda MD EXAMINATION: US LOWE [...] are patent. The peroneal veins are thrombosed. __ US/US venous duplex LE RT IMPRESSION: Nonocclusive poplite al DVT with additional thrombosis of the gastrocnemius and peroneal veins. Findings were communicated to Dr. Aranda on 08/21/2024 at 8:17 AM, and the patient was sent to the emergency room. Electronically johnie d by: Sebastián Agustin MD 08/21/2024 08:20 AM EDT RP Dictated By: Sebastián Agustin MD Signed By: <Electronically signed by Sebastián Agustin MD in OV> 08/21/2420 DD/ 0734 TD/TT: 08/21/24 0801 Recovery Operator Helper: Reason For Referral No Information Medications Medication SIG (Take, Route, Fr equency, Duration) Notes Start Date End Date Status Eliquis 5 MG as directed Orally twice a day 2024 Active Finasteride 5 MG 1 tablet Orally Once a day Active Tadalafil 5 MG 1 tablet as needed O rally Once a day Active buPROPion HCl 100 MG TAKE 1 TABLET BY [facility] TWICE DAILY Active Terazosin HCl 2 MG TAKE 1 CAPSULE BY [facility] EVERY DAY AT BEDTIME Active Apixaban 5 MG one tablet Orally tw ice a day for 30 days 08/23/2024 Active Immunizations Vaccine Route Administration Date Status Comme nts Influenza Unknown 02/13/2014 Administered Pneumococcal Unknown 02/13/2014 Administered Influenza IM Intramuscular 02/09/2015 Administered Influenza IM Intramuscular 02/15/2016 Administered Influenza no Preserv 3 and > Unknown 01/22/2020 Administered Social History Sex Assigned At : Social History Observation Description Sex Assigned At Male Alcohol Screen Question Answer Notes Did you have a drink containing alcohol in the p ast year? No Points 0 Interpretation Negative Problems Problem Type SNOMED Code ICD Code Onset Dates Problem Status W/U Status Risk Notes Problem 85750349 Depression (F32.9) Active confirmed His bupropion w as discontinued. His depression has been addressed and is well controlled. He is able to conduct all of the activities of daily life. 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 He does not wish treatment at this time. Problem 452874869 BPH (benign prostatic hyperplasia) (N40.0) Active confirmed He rises from sleep once or twice a night. He is now under the care of a urologist. He is compliant with all of his medications. Problem 617686238 Anticoagulated (Z79.01) Active confirmed There is no contraindication anticoagulation which will be for approximately 4 months. Problem 182988278 Erectile dysfunction (N52.9) Active confirmed This complaint is well controlled with oral medication. However, he says he hardly ever has a opportunity to use it Problem 70984471 Penicillin allergy (Z88.0) Active confirmed He is aware of the allergy and avoids penicillin. Problem 180870805408747 History of herpes zoster (Z86.19) Active confirmed He has had no further outbreaks of this problem. Problem Hyperlipidemia, unspecified hyperlipidemia type (E78.5) Active confirmed Comprehensive blood work is being done periodically. No change in his regimen was made. Problem 853750262749765 Acute deep vein thrombosis (DVT) of popliteal vein of right lower extremity (I82.431) Active confirmed There is no contraindication to anticoagulation which is ongoing. The thrombophilia evaluation is pending. Problem 411801525142312 Acute deep vein thrombosis (DVT) of right popliteal vein (I82.431) Active confirmed A thrombophilia workup is pending. He is tolerating the apixaban well. A follow-up for 4 weeks was arranged. Vital Signs Heart Rate 78 /min 08/23/2024 Temperature 97.7 degrees Fahrenheit 08/23/2024 Blood pressure diastolic 74 mm Hg 08/23/2024 Height 68 in 08/23/2024 Blood pressure systolic 127 mm Hg 08/23/2024 Weight 149 lbs 08/23/2024 BMI 22.65 kg/m2 08/23/2024 Encounters Encounter Location Date Provider Diagnosis Sebastián Aranda III, MD [address] [place] [address] [place] [address] 09/22/2023 Sebastián Aranda BPH (benign prostati c hyperplasia) N40.0 ; Hyperlipidemia, unspecified hyperlipidemia type E78.5 ; Depression F32.9 ; Erectile dysfunction N52.9 ; Palmar fascial fibromatosis [Dupuytren] M72.0 ; Elevated PSA R97.20 and Fungal dermatitis B36.9 Sebastián Aranda III, MD [address] [place] [address] [place] [address] 01/22/2024 Sebastián Aranda BPH (benign prostati c hyperplasia) N40.0 ; Depression F32.9 ; Hyperlipidemia, unspecified hyperlipidemia type E78.5 ; Erectile dysfunction N52.9 and Palmar fascial fibromatosis [Dupuytren] M72.0 Sebastián Aranda III, MD [address] [place] [address] [place] [address] 08/20/2024 Sebastián Aranda BPH (benign prostati c hyperplasia) N40.0 ; Acute deep vein thrombosis (DVT) of popliteal vein of right lower extremity I82.431 ; Depression F32.9 ; Palmar fascial fibromatosis [Dupuytren] M72.0 ; Hyperlipidemia, unspecified hyperlipidemia type E78.5 and Anticoagulated Z79.01 Sebastián Aranda III, MD [address] [place] [address] [place] [address] 08/23/2024 Sebastián Aranda BPH (benign prostati c hyperplasia) N40.0 ; Acute deep vein thrombosis (DVT) of right popliteal vein I82.431 ; Depression F32.9 ; Hyperlipidemia, unspecified hyperlipidemia type E78.5 and Palmar fascial fibromatosis [Dupuytren] M72.0 Sebastián Aranda III, MD [address] [place] [address] [place] [address] 08/21/2024 Sebastián Aranda Assessments Encounter Date Diagnosis (ICD Code) Assessment Notes T reatment Notes Treatment Clinical Notes 09/22/2023 BPH (benign prostatic hyperplasia) (ICD-10 - N40.0) [...] activities of daily life. 01/22/2024 BPH (benign prostatic hyperplasia) (ICD-10 - N40.0) He rises from sleep once or twice a night. He is now under the care of a urologist. He is compliant with all of his medications. 08/20/2024 BPH (benign prostatic hyperplasia) (ICD-10 - [...] is ongoing. The thrombophilia evaluation is pending. 08/23/2024 BPH (benign prostatic hyperplasia) (ICD-10 - N40.0) [...] A follow-up for 4 weeks was arranged. 09/22/2023 Depression (ICD-10 - F32.9) His bupropion was discontinued. His depression has been addressed and is well controlled. He is able to conduct all of the activities of daily life. 01/22/2024 Hyperlipidemia, unspecified hyperlipidemia type (ICD-10 - E78.5) Comprehensive blood work is being done periodically. No change in his regimen was made. 08/20/2024 Depression (ICD-10 - F32.9) His bupropion was discontinued. His depression has been addressed and is well controlled. He is able to conduct all of the activities of daily life. 08/23/2024 Depression (ICD-10 - F32.9) His bupropion [...] ever has a opportunity to use it 08/20/2024 Palmar fascial fibromatosis [Dupuytren] (ICD-10 - M72.0) He has mild bilateral Dupuytren's contractures but says they do not bother him. He does not wish treatment at this time. 08/23/2024 Hyperlipidemia, unspecified hyperlipidemia type (ICD-10 - E78.5) Comprehensive blood work is being done periodically. No change in his regimen was made. 09/22/2023 Palmar fascial fibromatosis [Dupuytren] (ICD-10 - [...] now 3.09 and this problem has resolved. 08/20/2024 Anticoagulated (ICD-10 - Z79.01) There is no contraindication anticoagulation which will be for approximately 4 months. 09/22/2023 Fungal dermatitis (ICD-10 - B36.9) Is given a prescription for clotrimazole betamethasone. Plan Of Treatment Pending Test Test Name Order Date PROFILE, FASTING (COMPREHENSIVE METABOLI C) 01/22/2024 PSA, TOTAL 01/22/2024 US LEG RT VENOUS DOPPLER 08/20/2024 CBC WITH AUTO DIFF 01/22/2024 Protein C Activity Reflex Ag 08/21/2024 Protein S Activity reflex Ag 08/21/2024 Anti-Thrombin III Activity 08/21/2024 Anti-Thrombin III Antigen 08/21/2024 Factor V Leiden 08/21/2024 Prothrombin 02787V 08/21/2024 Lupus Anticoagulant Panel 08/21/2024 Lipid Panel 01/22/2024 Next Appt Details Provider Name:Sebastián Aranda, 09/24/2024 10:00:00 AM, [address] [place] [address] , [facility] [address], [place], [address], Insurance Providers Payer Name Payer Address Payer Phone Subscriber Number Group Number Insured Name Patient Relationship to Insured Coverage Start Date Coverage End Date [facility] [address] [facility] [address] [facility] [place] [phone] [id number] Og Lobato Self - patient is the insured MEDICARE NGS [address] [place] [address] [id number] Og Lobato Self - patient is the insured Medical (General) History Medical History History ICD Code shingles age 10 depression Dupuyten's contractures allergic amoxicillin ED BPH Surgical History Surgery Date(Month/Year) No history Tonsils removed at 7 years old GI biopsy 04/2019 negative colonoscopy 2009 Hospitalization History Reason Date(Month/Year) No history
[2024-09-20 09:09] LABS: MANUAL DIFF FLAG NO
[2024-09-20 10:10] LABS: Basophils Percent Auto 0.7 % (0-2); Eosinophils Absolute Auto 0.3 X10*3/uL (0.0-0.4); Eosinophils Percent Auto 6.2 % (0-4); Hemoglobin 14.3 g/dl (14.0-18.0); Imm Gran Abs Auto 0.01 X10*3/uL (0.00-0.03); Imm Gran Pct Auto 0.2 % (0.0-0.4); Lymphocytes Absolute Auto 1.7 X10*3/uL (1.2-4.9); Lymphocytes Percent Auto 30.6 % (20-40); Mean Corpuscular HGB Conc 33.3 g/dl (31.0-36.0); Mean Corpuscular Volume 84.3 fL (80.0-98.0); Mean Platelet Volume 9.9 fL (9.4-12.4); Monocytes Absolute Auto 0.6 X10*3/uL (0.1-1.2); Monocytes Percent Auto 10.6 % (2-11); Neutrophils Absolute Auto 2.8 x10*3/uL (2.0-8.3); Neutrophils Percent Auto 51.7 % (45-73); Platelet Count 239 X10*3/uL (160-400); Red Cell Distribution Width 13.2 % (11.0-16.0); White Blood Count 5.5 X10*3/uL (4.8-10.8)
[2024-09-20 10:36] LABS: Alanine Aminotransferase 13 U/L (0-40); Albumin Level 4.3 g/dL (3.5-5.0); Alkaline Phosphatase 79 U/L (39-117); Anion Gap 11 (12-20); Aspartate Amino Transferase 18 U/L (5-37); Bilirubin Total 0.5 mg/dL (0.0-1.0); Blood Urea Nitrogen 17 mg/dL (9-16); Calcium 9.4 mg/dL (8.4-10.2); Carbon Dioxide 27 mmol/L (22-29); Chloride 109 mmol/L (96-108); Cholesterol 216 mg/dL (<200); Estimated Glomerular Filt Rate 59; Glucose Fasting 85 mg/dL (60-99); HDL Cholesterol 51 mg/dL (>40); LDL Cholesterol Calculated 148 mg/dL (<100); Sodium 143 mmol/L (135-145); Total Protein 6.8 g/dL (6.5-8.0); Triglycerides 86 mg/dL (<150)
[2024-09-23 14:33] LABS: Free Prostate Spec Ag 0.8 ng/mL; Percent Free Prostate Spec Ag 18 % (calc) (>25); Prostate Specific Ag Total 4.4 ng/mL (< OR = 4.0)
== END 2024-09-20 08:49 | disposition home or self-care (01) ==
LOC: HO.LAB 08:48
PROVIDERS: PCP Internal Medicine Medical Oncology; Visit Provider Internal Medicine Medical Oncology
DX: N40.0 Benign prostatic hyperplasia without lower urinary tract symptoms (principal); E78.5 Hyperlipidemia, unspecified
CPT/HCPCS: 36415; 80053; 80061; 84154; 85025

== ENCOUNTER 2024-11-04 08:04 | Outpatient (REF) | payer MEDICARE, SELFPAY ==
--- OUTSIDE RECORDS SUMMARY | 2024-11-04 08:07 | XMS_ITS | Patient Health Record ---
Author Organization Sebastián Aranda III, MD Address [address] [place] [address] Care Team Providers Care Security Support Analyst Name Role Phone Sebastián Aranda Primary Care [...] Antigen Reviewed date:12/20/2023 10:11:16 AM Interpretation: Performing Lab:[facility], [address] [place] [phone] Notes/Report: Prostate Specific Antigen 2.95 <0.05-4.0 ng/mL PSA methodology: Bermeo Alinity i Chemiluminescent Microparticle Immunoassay (CMIA) Testosterone, Free/Total Reviewed date:12/20/2023 10:11:16 AM Interpretation: Performing Lab:[facility], [address] [place] [phone] Notes/Report: Testosterone, Total 499 [address]-7937 ng/dL Men with clinically significant hypogonadal symptoms and testosterone values repeatedly in the range of the 200-300 ng/dL or less, may benefit from testosterone treatment after adequate risk and benefits counseling. For additional information, please refer to http://education.ustyme.Globa.li/faq/ TotalTestosteroneLCMSM CAFF322 (This link is being provided for informational/ educational purposes only.) This test was developed and its analytical performance characteristics have been determined by [facility] [place], [place]. It has not been cleared or approved by the U.S. Food and Drug Administration. This assay has been validated pursuant to the CLIA regulations and is used for clinical purposes. Testosterone, Free 79.6 35.0-155.0 pg/mL This test was developed and its analytical performance characteristics have been determined by [facility] [place], [place]. It has not been cleared or approved by the U.S. Food and Drug Administration. This assay has been validated pursuant to the CLIA regulations and is used for clinical purposes. THIS TEST WAS PERFORMED AT: [facility]/[address] [address] DAX MCCULLOUGH MD,PHD Prostate Specific Antigen Reviewed date:08/17/2024 08:41:07 PM Interpretation: Performing Lab:[facility], [address] [place] [phone] Notes/Report: Prostate Specific Antigen 4.48 <0.05-4.0 ng/mL PSA methodology: Bermeo Alinity i Chemiluminescent Microparticle Immunoassay (CMIA) Complete Blood Count Auto Di ff Reviewed date:08/25/2024 07:54:07 PM Interpretation: Performing Lab:[facility], [address] [place] [phone] Notes/Report: White Blood Count 6.3 4.8-10.8 X10*3/uL [...] INR Reviewed date:08/25/2024 07:54:07 PM Interpretation: Performing Lab:[facility], [address] [place] [phone] Notes/Report: Prothrombin Time 10.3 10.9-12.4 SEC INTERNATIONAL [...] Time Reviewed date:08/25/2024 07:54:07 PM Interpretation: Performing Lab:[facility], [address] [place] [phone] Notes/Report: Partial Thromboplastin Time 30.0 26.0-36.8 SEC For information regarding the monitoring of direct thrombin inhibitors, please refer to Pharmacy. Protein C Activity Reflex Ag Reviewed date:09/24/2024 10:24:11 AM Interpretation: Performing Lab:[facility], [address] [place] [phone] Notes/Report: Protein C Activity 117 70-180 % normal THIS TEST WAS PERFORMED AT: [facility] [address] DAX MCCULLOUGH MD,PHD Protein C Antigen Add TNP Protein C Antigen TNP Protein S Activity reflex Ag Reviewed date:09/24/2024 10:24:11 AM Interpretation: Performing Lab:[facility], [address] [place] [phone] Notes/Report: Protein S Activity rflx Tot Fr 95 70-150 % normal THIS TEST WAS PERFORMED AT: [facility] [employer] [facility] [address] DAX MCCULLOUGH MD,PHD Protein S Total (Antigenic) TNP Protein S Free Antigen TNP Anti-Thrombin III Activity Reviewed date:09/24/2024 10:24:11 AM Interpretation: Performing Lab:[facility], [address] [place] [phone] Notes/Report: Anti-Thrombin III Activity 104 80-135 % normal THIS TEST WAS PERFORMED AT: [facility] [facility] [address] DAX MCCULLOUGH MD,PHD Anti-Thrombin III Antigen Reviewed date:09/24/2024 10:24:11 AM Interpretation: Performing Lab:[facility], [address] [place] [phone] Notes/Report: Anti-Thrombin III Antigen 90 80-120 % normal THIS TEST WAS PERFORMED AT: [facility] [facility] [address] DAX MCCULLOUGH MD,PHD Factor V Leiden Reviewed date:09/24/2024 10:24:11 AM Interpretation: Performing Lab:[facility], [address] [place] [phone] Notes/Report: Factor V Leiden NEGATIVE FACTOR V [...] and results monitored by Joshua Ramirez, Ph.D., [facility], [facility], [facility]. VARIANT ANALYSIS: The Factor V Leiden (R506Q) [...] Health care providers, please contact your local [facility] genetic counselor or call [facility] ([phone]) for assistance with interpretation of these results. This test was developed and its analytical performance characteristics have been determined by [facility]. It has not been cleared or approved by the FDA. This assay has been validated pursuant to the CLIA regulations and is used for clinical purposes. THIS TEST WAS PERFORMED AT: [facility] [address] [place] [address] EVONNE FIGUEROA MD,PHD,SANTO Prothrombin 27288W Reviewed date:09/24/2024 10:24:11 AM Interpretation: Performing Lab:[facility], [address] [place] [phone] Notes/Report: Prothrombin 49735Z NEGATIVE RESULT: G 14116C VARIANT NOT DETECTED [id number] See Below INTERPRETATION: This individual is negative (normal) for the R24838A variant in the Prothrombin/Factor II gene. Increased risk of thrombophilia can be caused by a variety of genetic and non-genetic factors not screened for by this assay. Laboratory testing supervised and results monitored by Joshua Ramirez, Ph.D., [facility], [facility], [facility]. The N97875P mutation [EU895591.1: g.66848Q>A (c.*97G>A)] in the Prothrombin/Factor II gene is the second most common inherited risk factor for thrombosis occurring in approximately 2% of Caucasians. Presence of the mutation is associated with an elevation of prothrombin levels to about 30% above normal in heterozygotes and to 70% above normal in homozygotes. Prothrombin (Y62328U) mutations are detected by amplification of their [...] Health care providers, please contact your local [facility]' genetic counselor or call [phone] ([phone]) for assistance with interpretation of these results. This test was developed and its analytical performance characteristics have been determined by [facility]. It has not been cleared or approved by the FDA. This assay has been validated pursuant to the CLIA regulations and is used for clinical purposes. THIS TEST WAS PERFORMED AT: [facility] [address] [place] [address] EVONNE FIGUEROA MD,PHD,SANTO Lupus Anticoagulant Panel Reviewed date:09/24/2024 10:24:11 AM Interpretation: Performing Lab:[facility], [address] [place] [phone] Notes/Report: Lupus Interpretation see note A Lupus Anticoagulant is not detected. Reference Range: Not Detected For additional information, please refer to http://education.ustyme.com/faq/FA Q01v2 (This link is being provided for informational/ educational purposes only.) This interpretation is based on the following test results. PTT (LAC) Screen 37 <=40 sec DRVVT Screen 31 <=45 sec THIS TEST WAS PERFORMED AT: [facility]/[address] DAX MCCULLOUGH MD,PHD DRVVT Confirmation TNP DRVVT 1:1 Mix TNP DRVVT 1:1 Mix Interpretation TNP Hexagonal Phase Neutralization TNP Thrombin Clotting Time TNP Comprehensive Met. Panel Reviewed date:08/25/2024 07:54:07 PM Interpretation: Performing Lab:[facility], [address] [place] [phone] Notes/Report: Sodium 138 135-145 mmol/L Potassium 4.5 [...] date:08/25/2024 07:54:07 PM Interpretation: Performing Lab: Notes/Report: [address] [address] Ultrasound Report Signed Patient: Og Lobato MR#: [id number] 1565 : 1955 Acct:[id number] Age/Sex: 68 / M ADM Date: 08/21/24 Loc: HO.US Attending Dr: Sebastián Aranda MD Ordering Physician: Sebastián Aranda MD Date of Service: 08/21/24 Procedure(s): US venous duplex LE RT Accession Number(s): [id number] cc: Sebastián Aranda MD EXAMINATION: US LOWER [...] 08/21/24 0820 DD/ 0734 TD/TT: 08/21/24 0801 [employer] Social Worker: [place] [address] Ultrasound Report Signed Patient: Og Lobato MR#: [id number] 1565 : 1955 Acct:[id number] Age/Sex: 68 / M ADM Date: 08/21/24 Loc: .US Attending Dr: Sebastián Aranda MD Ordering Physician: Sebastián Aranda MD Date of Service: 08/21/24 Procedure(s): US venous duplex LE RT Accession Number(s): [id number] cc: Sebastián Aranda MD EXAMINATION: US LOWE [...] signed by Sebastián Agustin MD in OV> 08/21/24819 DD/ 0734 TD/TT: 08/21/24 0801 [employer] Social Worker: Complete Blood Count Auto Di ff Reviewed date:09/24/2024 10:24:11 AM Interpretation: Performing Lab:[facility], [address] [place] [phone] Notes/Report: White Blood Count 5.5 4.8-10.8 X10*3/uL Red Blood Count 5.10 4.60-5.80 X10*6/uL Hemoglobin 14.3 14.0-18.0 g/dl Hematocrit 43.0 42.0-52.0 % Mean Corpuscular Volume 84.3 80.0-98.0 fL Mean Corpuscular Hemoglobin 28.0 27.0-33.0 pg Mean Corpuscular HGB Conc 33.3 31.0-36.0 g/dl Red Cell Distribution Width 13.2 11.0-16.0 % Platelet Count 239 160-400 X10*3/uL Mean Platelet Volume 9.9 9.4-12.4 fL Neutrophils Percent Auto 51.7 45-73 % Imm Gran Pct Auto 0.2 0.0-0.4 % Lymphocytes Percent Auto 30.6 20-40 % Monocytes Percent Auto 10.6 2-11 % Eosinophils Percent Auto 6.2 0-4 % Basophils Percent Auto 0.7 0-2 % NRBC Pct Auto 0.0 0.0-0.2 /100WBC Neutrophils Absolute Auto 2.8 2.0-8.3 x10*3/uL Imm Gran Abs Auto 0.01 0.00-0.03 X10*3/uL Lymphocytes Absolute Auto 1.7 1.2-4.9 X10*3/uL Monocytes Absolute Auto 0.6 0.1-1.2 X10*3/uL Eosinophils Absolute Auto 0.3 0.0-0.4 X10*3/uL Basophils Absolute Auto 0.0 0.0-0.2 X10*3/uL NRBC Abs Auto 0.000 0.0-0.012 X10*3/uL Comprehensive [place]. Panel Fa st Reviewed date:09/24/2024 10:24:11 AM Interpretation: Performing Lab:[facility], [address] [place] [phone] Notes/Report: Sodium 143 135-145 mmol/L Potassium 4.0 3.3-5.1 mmol/L Chloride 109 96-108 mmol/L Carbon Dioxide 27 22-29 mmol/L Anion Gap 11 12-20 Blood Urea Nitrogen 17 9-16 mg/dL Creatinine 1.22 0.5-1.4 mg/dL Estimated Glomerular Filt Rate 59 Chronic Kidney Disease: Estimated GFR < 60 mL/min/1.73m2 Severe Kidney Disease: Estimated GFR < 15 mL/min/1.73m2 Glucose Fasting 85 60-99 mg/dL Calcium 9.4 8.4-10.2 mg/dL Bilirubin Total 0.5 0.0-1.0 mg/dL Aspartate Amino Transferase 18 5-37 U/L Alanine Aminotransferase 13 0-40 U/L Total Protein 6.8 6.5-8.0 g/dL Albumin Level 4.3 3.5-5.0 g/dL Alkaline Phosphatase 79 39-117 U/L Lipid Panel Reviewed date:09/24/2024 10:24:11 AM Interpretation: Performing Lab:[facility], [address] [place] [phone] Notes/Report: Triglycerides 86 <150 mg/dL Desirable Triglyceride: less than 150 mg/dL Borderline High Triglyceride 150-199 mg/dL High Triglyceride: 200-499 mg/dL Very High Triglyceride: greater than or equal to 5OO mg/dL Cholesterol 216 <200 mg/dL Desirable Cholesterol: less than 200 mg/dL Borderline High Cholesterol: 200-239 mg/dL High Cholesterol: greater than 239 mg/dL LDL Cholesterol Calculated 148 <100 mg/dL Desirable LDL: less than 100 mg/dL Near Optimal/Above Optimal LDL: 110-129 mg/dL Borderline High LDL: 130-159 mg/dL High LDL: 160-189 mg/dL Very High LDL: greater than or equal to 190 mg/dL HDL Cholesterol 51 >40 mg/dL Desirable HDL: greater than 40 mg/dL Note: This HDL assay may give artificially low results in patients with liver disease. PSA Free and Total Reviewed date:09/24/2024 10:24:11 AM Interpretation: Performing Lab:[facility], [address] [place] [phone] Notes/Report: Prostate Specific Ag Total 4.4 < OR = 4.0 ng/mL Percent Free Prostate Spec Ag 18 >25 % (calc) PSA(ng/mL) Free PSA(%) Estimated(x) Probability of Cancer(as%) 0-2.5 (*) Approx. 1 2.6-4.0(1) 0-27(2) 24(3) 4.1-10(4) 0-10 56 11-15 28 16-20 20 21-25 16 >or =26 8 >10(+) N/A >50 References:(1)Bib et al.:Urology 60: 469-474 (2002) (2)Bib et al.:J.Urol 168: 922-925 (2002) Free PSA(%) Sensitivity(%) Specificity(%) < or = 25 85 19 < or = 30 93 9 (3)Bib et al.:LYNDA 277: 1053-1265 (1996) (4)Bib et al.:LYNDA 279: 6918-0878 (1998) (x)These estimates vary with age, ethnicity, family history and DANTE results. (*)The diagnostic usefulness of % Free PSA has not been established in patients with total PSA below 2.6 ng/mL (+)In men with PSA above 10 ng/mL, prostate cancer risk is determined by total PSA alone. The Total PSA value from this assay system is standardized against the equimolar PSA standard. The test result will be approximately 20% higher when compared to the WHO-standardized Total PSA (Siemens assay). Comparison of serial PSA results should be interpreted with this fact in mind. PSA was performed using the Marva Sabino Immunoassay method. Values obtained from different assay methods cannot be used interchangeably. PSA levels, regardless of value, should not be interpreted as absolute evidence of the presence or absence of disease. THIS TEST WAS PERFORMED AT: [facility] [address] [place] [phone] DEIDRA SANCHEZ MD Free Prostate Spec Ag 0.8 Reason For Referral No Information Medications Medication SIG (Take, Route, Fr equency, Duration) Notes Start Date End Date Status Eliquis 5 MG as directed Orally twice a day 2024 Active Tadalafil 5 MG 1 tablet as needed O rally Once a day Active Finasteride 5 MG 1 tablet Orally Once a day Active Terazosin HCl 2 MG TAKE 1 CAPSULE BY [facility] EVERY DAY AT BEDTIME Active Apixaban 5 MG one tablet Orally twice a day 2024 Active buPROPion HCl 100 MG TAKE 1 TABLET BY [facility] TWICE DAILY Active Immunizations Vaccine Route Administration Date Status Comme nts Influenza Unknown 02/13/2014 Administered Pneumococcal Unknown 02/13/2014 Administered Influenza IM Intramuscular 02/09/2015 Administered Influenza IM Intramuscular 02/15/2016 Administered Influenza no Preserv 3 and > Unknown 01/22/2020 Administered Influenza no Preserv 3 and > Unknown 02/17/2013 Administered COVID 19 Moderna Unknown 07/30/2020 Administered COVID 19 Moderna Unknown 08/27/2020 Administered Influenza-iiv4 p-free high dose Unknown 04/15/2021 Administered COVID 19 Moderna Unknown 04/15/2021 Administered Flu-IIv4pf Unknown 01/22/2020 Administered Social History Tobacco Use: [...] Never (0 point) Points 2 Interpretation Negative Problems Problem Type SNOMED Code ICD Code Onset Dates Problem Status W/U Status Risk Notes Problem 14928038 Depression (F32.9) Active confirmed His bupropion w as discontinued. His depression has been addressed and is well controlled. He is able to conduct all of the activities of daily life. 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 He does not wish treatment at this time. Problem 497239361 BPH (benign prostatic hyperplasia) (N40.0) Active confirmed He rises from sleep once or twice a night. He is now under the care of a urologist. He is compliant with all of his medications. Problem 468533542 Anticoagulated (Z79.01) Active confirmed There is no contraindication anticoagulation which will be for approximately 4 months. Problem 717047945 Erectile dysfunction (N52.9) Active confirmed This complaint is well controlled with oral medication. However, he says he hardly ever has a opportunity to use it Problem 42458636 Penicillin allergy (Z88.0) Active confirmed He is aware of the allergy and avoids penicillin. Problem 072401103177627 History of herpes zoster (Z86.19) Active confirmed He has had no further outbreaks of this problem. Problem Hyperlipidemia, unspecified hyperlipidemia type (E78.5) Active confirmed Comprehensive blood work is being done periodically. No change in his regimen was made. Problem 305705924029425 Acute deep vein thrombosis (DVT) of popliteal vein of right lower extremity (I82.431) Active confirmed There is no contraindication to anticoagulation which is ongoing. The thrombophilia evaluation is pending. Problem 992563055246514 Acute deep vein thrombosis (DVT) of right popliteal vein (I82.431) Active confirmed A thrombophilia workup is Negative. He is tolerating the apixaban well. A follow-up for 4 weeks was arranged. Vital Signs Heart Rate 80 /min 09/24/2024 Temperature 98.2 degrees Fahrenheit 09/24/2024 Blood pressure diastolic 88 mm Hg 09/24/2024 Height 68 in 09/24/2024 Blood pressure systolic 113 mm Hg 09/24/2024 Weight 148 lbs 09/24/2024 BMI 22.5 kg/m2 09/24/2024 Encounters Encounter Location Date Provider Diagnosis Sebastián Aranda III, MD [address] [place] [address] [place] [phone] 01/22/2024 Sebastián Aranda BPH (benign prostati c hyperplasia) N40.0 ; Depression F32.9 ; Hyperlipidemia, unspecified hyperlipidemia type E78.5 ; Erectile dysfunction N52.9 and Palmar fascial fibromatosis [Dupuytren] M72.0 Sebastián Aranda III, MD [address] [place] [address] [place] [phone] 08/20/2024 Sebastián Aranda BPH (benign prostati c hyperplasia) N40.0 ; Acute deep vein thrombosis (DVT) of popliteal vein of right lower extremity I82.431 ; Depression F32.9 ; Palmar fascial fibromatosis [Dupuytren] M72.0 ; Hyperlipidemia, unspecified hyperlipidemia type E78.5 and Anticoagulated Z79.01 Sebastián Aranda III, MD [address] [place] [address] [place] [phone] 08/23/2024 Sebastián Aranda BPH (benign prostati c hyperplasia) N40.0 ; Acute deep vein thrombosis (DVT) of right popliteal vein I82.431 ; Depression F32.9 ; Hyperlipidemia, unspecified hyperlipidemia type E78.5 and Palmar fascial fibromatosis [Dupuytren] M72.0 Sebastián Aranda III, MD [address] [place] [address] [place] [address] 09/24/2024 Sebastián Aranda Acute deep vein thrombosis (DVT) of right popliteal vein I82.431 ; BPH (benign prostatic hyperplasia) N40.0 ; Depression F32.9 ; Anticoagulated Z79.01 ; Palmar fascial fibromatosis [Dupuytren] M72.0 and Hyperlipidemia, unspecified hyperlipidemia type E78.5 Sebastián Aranda III, MD [address] [place] [address] [place] [address] 08/21/2024 Sebastián Aranda Assessments Encounter Date Diagnosis (ICD Code) Assessment Notes T reatment Notes Treatment Clinical Notes 01/22/2024 Depression (ICD-10 - F32.9) His bupropion [...] compliant with all of his medications. 09/24/2024 Acute deep vein thrombosis (DVT) of right popliteal vein (ICD-10 - I82.431) A thrombophilia workup is Negative. He is tolerating the apixaban well. A follow-up for 4 weeks was arranged. 01/22/2024 Hyperlipidemia, unspecified hyperlipidemia type (ICD-10 - [...] of the activities of daily life. 09/24/2024 Depression (ICD-10 - F32.9) His bupropion was discontinued. His depression has been addressed and is well controlled. He is able to conduct all of the activities of daily life. 01/22/2024 Erectile dysfunction (ICD-10 - N52.9) This [...] No change in his regimen was made. 09/24/2024 Anticoagulated (ICD-10 - Z79.01) There is no contraindication anticoagulation which will be for approximately 4 months. 01/22/2024 Palmar fascial fibromatosis [Dupuytren] (ICD-10 - [...] not wish treatment at this time. 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 He does not wish treatment at this time. 08/20/2024 Anticoagulated (ICD-10 - Z79.01) There is no contraindication anticoagulation which will be for approximately 4 months. 09/24/2024 Hyperlipidemia, unspecified hyperlipidemia type (ICD-10 - E78.5) Comprehensive blood work is being done periodically. No change in his regimen was made. Plan Of Treatment Pending Test Test Name Order Date PROFILE, FASTING (COMPREHENSIVE METABOLI C) 01/22/2024 PSA, TOTAL 01/22/2024 US LEG RT VENOUS DOPPLER 08/20/2024 CBC WITH AUTO DIFF 01/22/2024 Lipid Panel 01/22/2024 Next Appt Details Provider Name:Sebastián Aranda, 12/25/2024 10:30:00 AM, [address] [place] [address] [address], [place], [phone], Provider Name:Sebastián Aranda, 09/25/2025 10:00:00 AM, [address] [place] [address] [address], [place], [phone], Insurance Providers Payer Name Payer Address Payer Phone Subscriber Number Group Number Insured Name Patient Relationship to Insured Coverage Start Date Coverage End Date [facility] [address] [facility] [address] [facility] [place] [phone] [id number] Og Lobato Self - patient is the insured MEDICARE NGS [address] [place] [phone] [id number] Og Lobato Self - patient is the insured Medical (General) History Medical History History ICD Code shingles age 10 depression Dupuyten's contractures allergic amoxicillin ED BPH Surgical History Surgery Date(Month/Year) No history Tonsils removed at 7 years old GI biopsy 04/2019 negative colonoscopy 2009 Hospitalization History Reason Date(Month/Year) No history
[2024-11-04 10:01] LABS: PSA,Total (Free>4and<10) 3.71 ng/mL (0.00-4.00)
== END 2024-11-04 08:05 | disposition home or self-care (01) ==
LOC: HO.LAB 08:04
PROVIDERS: PCP Internal Medicine Medical Oncology; Visit Provider Nurse Practitioner Family
DX: R97.20 Elevated prostate specific antigen [PSA] (principal); Z12.5 Encounter for screening for malignant neoplasm of prostate
CPT/HCPCS: 36415; 84153

== ENCOUNTER 2024-11-20 11:36 | Outpatient (AMB) | payer MEDICARE, SELFPAY ==
--- NOTE | 2024-11-20 11:38 | MHC.OFFVIS ---
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 Aranda. He presents to the office today for follow-up his elevated PSA and erectile dysfunction. In discussion with the patient today he reports to be doing and feeling well. Recent PSA results reviewed with the patient today as noted and trended below. We did discussed potential causes of increase in PSA as well as further treatment to include prostate MRI verses prostate biopsy verses continuation of finasteride and surveillance monitoring. He continues with low-dose Cialis for bladder stability as well as p.r.n. dosing for sexual activity. He discusses feeling this has been helpful in maintaining his erections. In office urinalysis results reviewed with the patient today. Previous workup has included a retroperitoneal ultrasound 11/06 noting bilateral kidneys with no calculi, lesions, or hydronephrosis noted. Diffuse wall thickening with trabeculations noted to the bladder. Pre void bladder volume is approximately 250 mL. Postvoid bladder volume is approximately 95 mL. Enlarged prostate with a volume of 91 mL. PSAs are as follows: 09/04 5.5, 09/05 5.4, 03/08 5.7, 03/08 4.4 % free PSA 23%, 09/06 4.4 %free PSA 30%, 03/09 3.2, 09/07 3.1, 12/08 3.0, 09/08 4.5, 10/09 4.4 % free PSA 18% Testosterone: 12/08 704 Free testosterone: 12/08 79.6 We discussed potential increase in PSA as well as further treatment options and risks and benefits of these treatment options. He denies urinary urgency, urinary frequency, nocturia, incontinence, hematuria, dysuria, foul smelling urine, changes to urinary stream, flank pain, fever, and or chills. He reports to be happy with current erections with daily tadalafil as well as p.r.n. prior to sexual activity. DANTE was offered however deferred. He discusses recently selling his sail boat. He otherwise denies any issues or concerns at this time. Review of Systems Const All systems reviewed & are unremarkable except as noted in HPI and below Eyes Reports as per HPI ENT Reports no additional complaints Card Reports no additional complaints Resp Reports no additional complaints GI Reports no additional complaints Reports as per HPI Musc Reports no additional complaints Skin/Breast Reports as per HPI Neuro Reports no additional complaints Psych Reports no additional complaints Endo Reports no additional complaints Asael/Lymph Reports no additional complaints Aller/Immun Reports no additional complaints Physical Exam Const General: cooperative, healthy appearing, comfortable, no acute distress, well developed, alert and awake Nutritional Appearance: average body habitus Orientation/consciousness: patient oriented x3 Limitations: no limitations HEENT Head: Yes normal to inspection, Yes normocephalic and Yes atraumatic Ears: hearing grossly normal bilaterally Eyes General: appearance normal, both eyes and all related structures Neck Neck: Yes normal visual inspection and Yes trachea midline Chest Chest palpation & inspection: normal inspection of the chest Resp Effort & Inspection: normal respiratory effort and able to speak in complete sentences Cardio Rate: regular rate GI Inspection: Yes normal to inspection General: Yes no CVA tenderness Back/Spine/Pelvis Back: no CVA tenderness Skin General skin exam: no rashes or lesions noted Neuro General: patient oriented x3 Extrem General: Yes normal to inspection Psych Appearance: grossly normal and well kempt Mental Status: mental status grossly normal Speech and movement: Normal speech and movement present and Clear speech present Affect: normal affect Attitude: cooperative Thought process: Normal thought process present Thought content: Normal thought content present Insight: Fair insight present (Psych) Judgement: Fair judgement present (Psych) Results AMB Urinalysis, Automated UA Leukoctes 0 Judson/uL Last Edit by JAMES Jasso on 11/20/24 11:56 UA Nitrite Negative Last Edit by JAMES Jasso on 11/20/24 11:56 UA Urobilinogen 0.2 mg/dL Last Edit by JAMES Jasso on 11/20/24 11:56 UA Protein 0 mg/dL Last Edit by JAMES Jasso on 11/20/24 11:56 UA pH 6.0 Last Edit by [facility] on 11/20/24 11:56 UA Blood 0 Sam/uL Last Edit by Malcolm Lazo [facility] on 11/20/24 11:56 UA Specific [place] 1.015 Last Edit by Malcolm Lazo [facility] on 11/20/24 11:56 UA Ketone Negative Last Edit by Malcolm Lazo [facility] on 11/20/24 11:56 UA Bilirubin 0 mg/dL Last Edit [facility] Malcolm [facility] on 11/20/24 11:56 UA Glucose 0 mg/dL Last Edit by Malcolm Lazo [facility] on 11/20/24 11:56 Results Reviewed Results Reviewed: Laboratory Last Values Urine pH (Auto) 6.0 11/20/24 11:55 Specific [place] (Auto) 1.015 11/20/24 11:55 Urine Protein (Auto) 0 mg/dL 11/20/24 11:55 Glucose (UA)(Auto) 0 mg/dL 11/20/24 11:55 Urine Ketones (Auto) Negative 11/20/24 11:55 Urine Blood (Auto) 0 Sam/uL 11/20/24 11:55 Urine Nitrite (Auto) Negative 11/20/24 11:55 Urine Bilirubin (Auto) 0 mg/dL 11/20/24 11:55 Urine Urobilinogen (Auto) 0.2 mg/dL 11/20/24 11:55 Leukocyte Esterase (Auto) 0 Judson/uL 11/20/24 11:55 Assessment & Plan Assessment & Plan (1) Nocturia: Code(s): R35.1 - Nocturia Category: Medical (2) Urinary frequency: Code(s): R35.0 - Frequency of micturition Category: Medical (3) Lower urinary tract symptoms: Code(s): R39.9 - Unspecified symptoms and signs involving the genitourinary system Category: Medical (4) Bladder wall thickening: Code(s): N32.89 - Other specified disorders of bladder Category: Medical (5) Elevated PSA: Code(s): R97.20 - Elevated prostate specific antigen [PSA] Category: Medical (6) Enlarged prostate: Code(s): N40.0 - Benign prostatic hyperplasia without lower urinary tract symptoms Category: Medical (7) Erectile dysfunction: Code(s): N52.9 - Male erectile dysfunction, unspecified Category: Medical Plan In office urinalysis results reviewed with the patient today; as noted above. Recent PSA results reviewed with the patient today; as noted above. We did discuss further treatment options of elevated PSA as well as risks and benefits of these treatment options. All questions were answered. Continue finasteride and Cialis as prescribed; refills provided. He currently denies any bothersome urinary issues or concerns. He reports be happy with current voiding parameters. Will continue with surveillance monitoring at this time per patient request. Will obtain redraw of PSA in 3-4 months. Follow-up in 3-4 months with lab to be completed prior; or sooner with any issues, concerns, and or questions. Orders: Orders PSA,Total (Free>4and<10) 3 Months N40.0 - Benign prostatic hyperplasia without lower urinary tract symptoms, R97.20 - Elevated prostate specific antigen [PSA] AMB Urinalysis Automated Today Z13.9 - Encounter for screening, unspecified Medications: Refilled finasteride 5 mg PO DAILY 90 tabs 3RF 90 days N13.8 - Other obstructive and reflux uropathy, N40.1 - Benign prostatic hyperplasia with lower urinary tract symptoms, R33.9 - Retention of urine, unspecified Patient Instructions: The patient had an opportunity to ask questions regarding the treatment plan. All questions were answered. Physical exam, labs, and imaging were discussed and reviewed in detail. As well as risks, benefits, and discussion of treatment choices. No major barriers to understanding were identified. The patient expressed understanding and agreement with the above treatment plan. The patient was made aware they should contact our office by phone for worsening of their current condition, the appearance of new symptoms, or with any questions or concerns. Compliance is encouraged with any medications and follow up testing that is ordered. It is a privilege to be allowed the opportunity to participate in? your urological care.? Again, if you have any questions or concerns If you have any questions or concerns please do not hesitate to contact me. The office is [phone]. This note is constructed using voice recognition software. While every effort has been made to ensure accuracy demand planning analyst errors may have been included. Yours sincerely, RONNA Ponce- Coding Level of Care Code Est Pt Level 3 (12204) Complex EM visit Add On G2211 Diagnoses Nocturia R35.1 Urinary frequency R35.0 Lower urinary tract symptoms R39.9 Bladder wall thickening N32.89 Elevated PSA R97.20 Enlarged prostate N40.0 Erectile dysfunction N52.9
--- OUTSIDE RECORDS SUMMARY | 2024-11-20 12:25 | XMS_ITS | Patient Health Record ---
Author Organization Sebastián Aranda III, MD Address [address] [place] [address] Care Team Providers Care Pharmacy Assistant Name Role Phone Sebastián Aranda Primary Care Provider [phone] Allergies Allergen (clinical drug ingredient) Drug/Non Drug [...] Antigen Reviewed date:12/20/2023 10:11:16 AM Interpretation: Performing Lab:[facility], [address] [place] [phone] Notes/Report: Prostate Specific Antigen 2.95 <0.05-4.0 ng/mL PSA methodology: [employer] Alinity i Chemiluminescent Microparticle Immunoassay (CMIA) Testosterone, Free/Total Reviewed date:12/20/2023 10:11:16 AM Interpretation: Performing Lab:[facility], [address] [place] [phone] Notes/Report: Testosterone, Total 348 090-3407 ng/dL Men with clinically significant hypogonadal symptoms and testosterone values repeatedly in the range of the 200-300 ng/dL or less, may benefit from testosterone treatment after adequate risk and benefits counseling. For additional information, please refer to http://education.[facility].com.[employer] [place]/faq/ TotalTestosteroneLCMSM BBSR514 (This link is being provided for informational/ educational purposes only.) This test was developed and its analytical performance characteristics have been determined by [facility] [place]. It has not been cleared or approved by the U.S. Food and Drug Administration. This assay has been validated pursuant to the CLIA regulations and is used for clinical purposes. Testosterone, Free 79.6 35.0-155.0 pg/mL This test was developed and its analytical performance characteristics have been determined by [facility] [place]. It has not been cleared or approved by the U.S. Food and Drug Administration. This assay has been validated pursuant to the CLIA regulations and is used for clinical purposes. THIS TEST WAS PERFORMED AT: [facility]/[address] [address] DAX MCCULLOUGH MD,PHD Prostate Specific Antigen Reviewed date:08/17/2024 08:41:07 PM Interpretation: Performing Lab:[facility], [address] [place] [phone] Notes/Report: Prostate Specific Antigen 4.48 <0.05-4.0 ng/mL PSA methodology: B[employer]eo Alinity i Chemiluminescent Microparticle Immunoassay (CMIA) Complete Blood Count Auto Di ff Reviewed date:08/25/2024 07:54:07 PM Interpretation: Performing Lab:[facility], [address] [place] [phone] Notes/Report: White Blood Count 6.3 4.8-10.8 X10*3/uL [...] INR Reviewed date:08/25/2024 07:54:07 PM Interpretation: Performing Lab:[facility], [address] [place] [phone] Notes/Report: Prothrombin Time 10.3 10.9-12.4 SEC INTERNATIONAL [...] Time Reviewed date:08/25/2024 07:54:07 PM Interpretation: Performing Lab:[facility], [address] [place] [phone] Notes/Report: Partial Thromboplastin Time 30.0 26.0-36.8 SEC For information regarding the monitoring of direct thrombin inhibitors, please refer to Pharmacy. Protein C Activity Reflex Ag Reviewed date:09/24/2024 10:24:11 AM Interpretation: Performing Lab:[facility], [address] [place] [phone] Notes/Report: Protein C Activity 117 70-180 % normal THIS TEST WAS PERFORMED AT: [facility] [address] DAX MCCULLOUGH MD,PHD Protein C Antigen Add TNP Protein C Antigen TNP Protein S Activity reflex Ag Reviewed date:09/24/2024 10:24:11 AM Interpretation: Performing Lab:[facility], [address] [place] [phone] Notes/Report: Protein S Activity rflx Tot Fr 95 70-150 % normal THIS TEST WAS PERFORMED AT: [facility] [address] DAX MCCULLOUGH MD,PHD Protein S Total (Antigenic) TNP Protein S Free Antigen TNP Anti-Thrombin III Activity Reviewed date:09/24/2024 10:24:11 AM Interpretation: Performing Lab:[facility], [address] [place] [phone] Notes/Report: Anti-Thrombin III Activity 104 80-135 % normal THIS TEST WAS PERFORMED AT: [facility] [address] DAX MCCULLOUGH MD,PHD Anti-Thrombin III Antigen Reviewed date:09/24/2024 10:24:11 AM Interpretation: Performing Lab:[facility], [address] [place] [phone] Notes/Report: Anti-Thrombin III Antigen 90 80-120 % normal THIS TEST WAS PERFORMED AT: [facility] [address] DAX MCCULLOUGH MD,PHD Factor V Leiden Reviewed date:09/24/2024 10:24:11 AM Interpretation: Performing Lab:[facility], [address] [place] [phone] Notes/Report: Factor V Leiden NEGATIVE FACTOR V [...] and results monitored by Joshua Ramirez, Ph.D., [facility], [facility], [facility]. VARIANT ANALYSIS: The Factor V Leiden [...] Health care providers, please contact your local [facility] genetic counselor or call [employer] ([phone]) for assistance with interpretation of these results. This test was developed and its analytical performance characteristics have been determined by [facility]. It has not been cleared or approved by the FDA. This assay has been validated pursuant to the CLIA regulations and is used for clinical purposes. THIS TEST WAS PERFORMED AT: [facility] [address] [place] [address] EVONNE FIGUEROA MD,PHD,SANTO Prothrombin 26679V Reviewed date:09/24/2024 10:24:11 AM Interpretation: Performing Lab:[facility], [address] [place] [phone] Notes/Report: Prothrombin 36316G NEGATIVE RESULT: G 33660S VARIANT NOT DETECTED [id number]-Ffottemiyjzjrh See Below INTERPRETATION: This individual is negative (normal) for the H66969B variant in the Prothrombin/Factor II gene. Increased risk of thrombophilia can be caused by a variety of genetic and non-genetic factors not screened for by this assay. Laboratory testing supervised and results monitored by Joshua Ramirez, Ph.D., [facility], [facility], [facility]. The M66748T mutation [MK030171.1: g.09012M>A (c.*97G>A)] in the Prothrombin/Factor II gene is the second most common inherited risk factor for thrombosis occurring in approximately 2% of Caucasians. Presence of the mutation is associated with an elevation of prothrombin levels to about 30% above normal in heterozygotes and to 70% above normal in homozygotes. Prothrombin (G61764F) mutations are detected by amplification of their [...] Health care providers, please contact your local [facility] genetic counselor or call [phone] ([phone]) for assistance with interpretation of these results. This test was developed and its analytical performance characteristics have been determined by [facility]. It has not been cleared or approved by the FDA. This assay has been validated pursuant to the CLIA regulations and is used for clinical purposes. THIS TEST WAS PERFORMED AT: [facility] [address] [place] [address] EVONNE FIGUEROA MD,PHD,SANTO Lupus Anticoagulant Panel Reviewed date:09/24/2024 10:24:11 AM Interpretation: Performing Lab:[facility], [address] [place] [phone] Notes/Report: Lupus Interpretation see note A Lupus Anticoagulant is not detected. Reference Range: Not Detected For additional information, please refer to http://education.[facility].com.com/faq/FA Q01v2 (This link is being provided for informational/ educational purposes only.) This interpretation is based on the following test results. PTT (LAC) Screen 37 <=40 sec DRVVT Screen 31 <=45 sec THIS TEST WAS PERFORMED AT: [facility]/[address] DAX MCCULLOUGH MD,PHD DRVVT Confirmation TNP DRVVT 1:1 Mix TNP DRVVT 1:1 Mix Interpretation TNP Hexagonal Phase Neutralization TNP Thrombin Clotting Time TNP Comprehensive Met. Panel Reviewed date:08/25/2024 07:54:07 PM Interpretation: Performing Lab:[facility], [address] [place] [phone] Notes/Report: Sodium 138 135-145 mmol/L Potassium 4.5 [...] date:08/25/2024 07:54:07 PM Interpretation: Performing Lab: Notes/Report: [address] [address] Ultrasound Report Signed Patient: Og Lobato MR#: [id number] 1565 : 1955 Acct:[id number] Age/Sex: 68 / M ADM Date: 08/21/24 Loc: HO.US Attending Dr: Sebastián Aranda MD Ordering Physician: Sebastián Aranda MD Date of Service: 08/21/24 Procedure(s): US venous duplex LE RT Accession Number(s): [id number] cc: Sebastián Aranda MD EXAMINATION: US LOWER [...] 08/21/24 0820 DD/ 0734 TD/TT: 08/21/24 0801 [facility]: [place] [address] Ultrasound Report Signed Patient: Og Lobato MR#: [id number] [id number] : 1955 Acct:[id number] Age/Sex: 68 / M ADM Date: 08/21/24 Loc: .US Attending Dr: Sebastián Aranda MD Ordering Physician: Sebastián Aranda MD Date of Service: 08/21/24 Procedure(s): US venous duplex LE RT Accession Number(s): [id number] cc: Sebastián Aranda MD EXAMINATION: US LOWE [...] OV> 08/21/24819 DD/ 0734 TD/TT: 08/21/24 0801 [employer] [facility]: Complete Blood Count Auto Di ff Reviewed date:09/24/2024 10:24:11 AM Interpretation: Performing Lab:[facility], [address] [place] [phone] Notes/Report: White Blood Count 5.5 4.8-10.8 X10*3/uL [...] NRBC Abs Auto 0.000 0.0-0.012 X10*3/uL Comprehensive [place]. Panel Fa st Reviewed date:09/24/2024 10:24:11 AM Interpretation: Performing Lab:[facility], [address] [place] [phone] Notes/Report: Sodium 143 135-145 mmol/L Potassium 4.0 [...] Panel Reviewed date:09/24/2024 10:24:11 AM Interpretation: Performing Lab:[facility], [address] [place] [phone] Notes/Report: Triglycerides 86 <150 mg/dL Desirable Triglyceride: [...] Total Reviewed date:09/24/2024 10:24:11 AM Interpretation: Performing Lab:[facility], [address] [place] [phone] Notes/Report: Prostate Specific Ag Total 4.4 < [...] 30 93 9 (3)Bib et al.:LYNDA 277: 4574-6769 (1997) (4)Bib et al.:LYNDA 279: 5650-0965 (1998) (x)These estimates vary with age, ethnicity, [...] of disease. THIS TEST WAS PERFORMED AT: [facility] [address] [place] [address] DEIDRA SANCHEZ MD Free Prostate Spec Ag 0.8 PSA,Total (Free>4and<10) Reviewed date:11/16/2024 07:19:36 PM Interpretation: Performing Lab:[facility], [address] [place] [phone] Notes/Report: PSA,Total (Free>4and<10) 3.71 0.00-4.00 ng/mL A Free PSA was not performed: The percentage of Free PSA can be used to enhance the differentiation of prostate cancer from benign prostatic disease in subjects whose PSA levels are between 4.0 and 10.0 ng/mL. For subjects whose PSA levels are below 4.0 or above 10.0 ng/mL, the risk of prostate cancer is determined on the basis of the PSA alone. Therefore the % Free PSA is recommended only for those subjects whose PSA levels are between 4.0 and 10.0 ng/mL. PSA methodology: [facility] i Chemiluminescent Microparticle Immunoassay (CMIA) Reason For [...] HCl 2 MG TAKE 1 CAPSULE BY [facility] EVERY DAY AT BEDTIME Active Apixaban 5 MG one tablet Orally twice a day 2024 Active buPROPion HCl 100 MG TAKE 1 TABLET BY [facility] TWICE DAILY Active Immunizations Vaccine Route Administration [...] Problem Status W/U Status Risk Notes Problem 17444178 Depression (F32.9) Active confirmed His bupropion w as discontinued. His depression has been addressed and is well controlled. He is able to conduct all of the activities of daily life. 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 He does not wish treatment at this time. Problem 434509962 BPH (benign prostatic hyperplasia) (N40.0) Active confirmed He rises from sleep once or twice a night. He is now under the care of a urologist. He is compliant with all of his medications. Problem 207153925 Anticoagulated (Z79.01) Active confirmed There is no contraindication anticoagulation which will be for approximately 4 months. Problem 066672207 Erectile dysfunction (N52.9) Active confirmed This complaint is well controlled with oral medication. However, he says he hardly ever has a opportunity to use it Problem 30314237 Penicillin allergy (Z88.0) Active confirmed He is aware of the allergy and avoids penicillin. Problem 088049824823888 History of herpes zoster (Z86.19) Active confirmed He has had no further outbreaks of this problem. Problem Hyperlipidaemia (54638030) Hyperlipidemia, unspecified hyperlipidemia type (E78.5) Active confirmed Comprehensive blood work is being done periodically. No change in his regimen was made. Problem 964596466279798 Acute deep vein thrombosis (DVT) of popliteal vein of right lower extremity (I82.431) Active confirmed There is no contraindication to anticoagulation which is ongoing. The thrombophilia evaluation is pending. Problem 440292617302334 Acute deep vein thrombosis (DVT) of right [...] Date Provider Diagnosis Sebastián Aranda III, MD [address] [place] [address] [place] [address] 01/22/2024 Sebastián Aranda BPH (benign prostati c hyperplasia) N40.0 ; Depression F32.9 ; Hyperlipidemia, unspecified hyperlipidemia type E78.5 ; Erectile dysfunction N52.9 and Palmar fascial fibromatosis [Dupuytren] M72.0 Sebastián Aranda III, MD [address] [place] [address] [place] [address] 08/20/2024 Sebastián Aranda BPH (benign prostati c hyperplasia) N40.0 ; Acute deep vein thrombosis (DVT) of popliteal vein of right lower extremity I82.431 ; Depression F32.9 ; Palmar fascial fibromatosis [Dupuytren] M72.0 ; Hyperlipidemia, unspecified hyperlipidemia type E78.5 and Anticoagulated Z79.01 Sebastián Aranda III, MD [address] [place] [address] [place] [address] 08/23/2024 Sebastián Aranda BPH (benign prostati c hyperplasia) N40.0 ; Acute deep vein thrombosis (DVT) of right popliteal vein I82.431 ; Depression F32.9 ; Hyperlipidemia, unspecified hyperlipidemia type E78.5 and Palmar fascial fibromatosis [Dupuytren] M72.0 Sebastián Aranda III, MD [address] [place] [address] [place] [address] 09/24/2024 Sebastián Aranda Acute deep vein thrombosis (DVT) of right popliteal vein I82.431 ; BPH (benign prostatic hyperplasia) N40.0 ; Depression F32.9 ; Anticoagulated Z79.01 ; Palmar fascial fibromatosis [Dupuytren] M72.0 and Hyperlipidemia, unspecified hyperlipidemia type E78.5 Sebastián Aranda III, MD [address] [place] [address] [place] [address] 08/21/2024 Sebastián Aranda Assessments Encounter Date Diagnosis [...] Panel 01/22/2024 Next Appt Details Provider Name:Sebastián rAanda, 12/25/2024 10:30:00 AM, [address] [place] [address] , [place] [address], [place], [address], Provider Name:Sebastián Aranda, 09/25/2025 10:00:00 AM, [address] [place] [address] , [address], [place], [phone], Insurance Providers Payer Name Payer Address Payer Phone Subscriber Number Group Number Insured Name Patient Relationship to Insured Coverage Start Date Coverage End Date [facility] [address] [address] [address] [facility] [phone] [id number] Og Lobato Self - patient is the insured MEDICARE NGS [address] [place] [address] [id number] Og Lobato Self - patient is the insured Medical (General) History Medical History History ICD Code shingles age 10 depression Dupuyten's contractures allergic amoxicillin ED BPH Surgical History Surgery Date(Month/Year) No history Tonsils removed at 7 years old GI biopsy 04/2019 negative colonoscopy 2009 Hospitalization History Reason Date(Month/Year) No history
== END 2024-11-20 12:37 | disposition home or self-care (01) ==
LOC: HO.HUSH 11:36
PROVIDERS: PCP Internal Medicine Medical Oncology; Visit Provider Nurse Practitioner Family
DX: R35.1 Nocturia (principal); R35.0 Frequency of micturition; R39.9 Unspecified symptoms and signs involving the genitourinary system; N32.89 Other specified disorders of bladder; R97.20 Elevated prostate specific antigen [PSA]; N40.0 Benign prostatic hyperplasia without lower urinary tract symptoms; N52.9 Male erectile dysfunction, unspecified
CPT/HCPCS: 99213; G2211

== ENCOUNTER → 2024-11-20 11:36 | Outpatient (BNVA) | payer MEDICARE, SELFPAY | PROVIDERS: PCP Internal Medicine Medical Oncology; Visit Provider Nurse Practitioner Family | DX: R97.20 Elevated prostate specific antigen [PSA] (principal); N52.9 Male erectile dysfunction, unspecified; R35.1 Nocturia; R35.0 Frequency of micturition; R39.9 Unspecified symptoms and signs involving the genitourinary system; N32.89 Other specified disorders of bladder; N40.0 Benign prostatic hyperplasia without lower urinary tract symptoms | CPT/HCPCS: 81003; 99212 ==

== ENCOUNTER 2025-02-13 16:07 | Outpatient (REF) | payer MEDICARE, SELFPAY ==
--- OUTSIDE RECORDS SUMMARY | 2023-08-29 04:53 | XMS_ITS ---
Author Organization Sebastián Aranda III, MD Address [address] [place] [address] Care Team Providers Care Senior Sharepoint Developer Name Role Phone Dr. Sebastián Aranda III Primary Care Provider [phone] REASON FOR VISIT Colorectal Cancer Screening Social History Sex Assigned At : Social History Observation Description Sex Assigned At Male Encounters Encounter Location Date Provider Diagnosis Sebastián Aranda III, MD [address] [place] [address] [place] [address] 08/29/2023 Sebastián Aranda Plan Of Treatment Next Appt Details Provider Name:Sebastián Aranda , 03/10/2025 09:45:00 AM, [address] [place] [address] [place], [address], Provider Name:Sebastián Aranda , 09/25/2025 10:00:00 AM, [address] [place] [address] [place], [address], Progress Notes * Og LOBATODOB: 6 (67 yo M)Acc No.[id number]:08/29/2023 Patient: Rubi Og cook :1955 A ge:67 Y S ex:Male Address:[address] [place] [address] [place] [address] * true * Date: Generated for Donta conrad/Dewayne/Cristofer on: 06:18 PM EDT
--- OUTSIDE RECORDS SUMMARY | 2023-09-13 06:50 | XMS_ITS ---
Author Organization Sebastián Aranda III, MD Address [address] [place] [address] Care Team Providers Care Medical Apparatus Model Maker Name Role Phone Dr. Sebastián Aranda III Primary Care Provider [phone] REASON FOR VISIT Needs call back from Social History Sex Assigned At : Social History Observation Description Sex Assigned At Male Encounters Encounter Location Date Provider Diagnosis Sebastián Aranda III, MD [address] [place] [address] [place] [phone] 09/13/2023 Sebastián Aranda Plan Of Treatment Next Appt Details Provider Name:Sebastián Aranda , 03/10/2025 09:45:00 AM, [address] [place] [address] [place], [address], Provider Name:Sebastián Aranda , 09/25/2025 10:00:00 AM, [address] [place] [address] [place], [address], Progress Notes * Og LOBATODOB: 6 (67 yo M)Acc No.[id number]:09/13/2023 Patient: Rubi Og cook :1955 A ge:67 Y S ex:Male Address:[address] [place] [address], [place] [address] * true * Date: Generated for Donta conrad/Dewayne/Cristofer on: 06:17 PM EDT
--- OUTSIDE RECORDS SUMMARY | 2023-09-22 06:00 | XMS_ITS ---
Author Organization Sebastián Aranda III, MD Address [address] [place] [address] Care Team Providers Care Track Layer Name Role Phone Dr. 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 [...] Date Provider Diagnosis Sebastián Aranda III, MD [address] [place] [address] [place] [address] 09/22/2023 Sebastián Aranda BPH (benign prostati c [...] HCl 2 MG TAKE 1 CAPSULE BY [facility] EVERY DAY AT BEDTIME Finasteride 5 MG 1 tablet Orally Once a day buPROPion HCl 100 MG TAKE 1 TABLET BY [facility] UT TWICE DAILY Clotrimazole-Betamethasone 1-0.05 % 1 application Externally Twice a day for 14 days 09/22/2023 11/17/2023 Next Appt Details Follow Up: 4 Months, Reason: OV Provider Name:Sebastián Aranda , 03/10/2025 09:45:00 AM, [address] [place] [address] [address], [place], [address], Provider Name:Sebastián Aranda , 09/25/2025 10:00:00 AM, [address] [place] [address] [place], [address], Progress Notes * Og LOBATODOB: 6 (67 yo M)Acc No.[id number]:09/22/2023 Progress Notes Patient: Rubi cook Jimbotanvi Provider: [...] N mer smith is from [facility] for several years.They have 2 step daughters. 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 He was born in [place]. * Medications: T akingTerazosin HCl 2 MG [...] MD Date: 0 09/22/2023 Generated for Printi ng/Faleannag/eTransmitting on: 1 06:18 PM EDT History and Physical Notes * HPI (History [...]
--- OUTSIDE RECORDS SUMMARY | 2024-01-22 06:45 | XMS_ITS ---
Author Organization Sebastián Aranda III, MD Address [address] [place] [address] Care Team Providers Care Manager In Training Name Role Phone Dr. Sebastián Aranda III [...] HCl 2 MG TAKE 1 CAPSULE BY [facility] EVERY DAY AT BEDTIME Active buPROPion HCl 100 MG TAKE 1 TABLET BY [facility] TWICE DAILY Active Social History Tobacco Use: [...] Date Provider Diagnosis Sebastián Aranda III, MD [address] [place] [address] [address], [place] [address] 01/22/2024 Sebastián Aranda BPH (benign prostati c [...] Next Appt Details Follow Up: As Scheduled, [place] son: OV, Annual Exam Provider Name:Sebastián Aranda , 03/10/2025 09:45:00 AM, [address] [facility] [address], [place], [address], Provider Name:Sebastián Aranda , 09/25/2025 10:00:00 AM, [address] [facility] [address], [place], [address], Progress Notes * Og LOBATODOB: 6 (68 yo M)Acc No.[id number]:01/22/2024 Progress Notes Patient: Og GO Provider: Rudy Aranda MD :1955 A ge:68 Y S ex:Male Date:01/22/2024 Address:[address] [place] [id number] Subjective: * Chief Complaints: * B enign [...] mentioned that his skin seems a bit spray drier and thinner than usual, and [...] A ggressive non-smoker Ramos smith is from [facility] for several years.They have 2 step daughters. 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 He was born in [place]. * Medications: T akingFinasteride 5 MG Tablet [...] 11:15 AM) Value Reference Range Testosterone, Total [phone] - ng/dL Testosterone, Free 79.6 35.0-155.0 - [...] MD Date: Generated for Reynoldi ng/Dewayne/eTransmitting on: 06:18 PM EDT History and Physical Notes * HPI (History of Present Illness) Category Sub-Category Detail Notes COVID-19 Screening Questions Have you had any new onset fever, chills, cough, congestion, sore throat, shortness of breath, muscle aches?: No Have you been exposed to the virus withi n the last 10 days?: No Have you travelled internationally in last 10 days?: No Have you been [...]
--- OUTSIDE RECORDS SUMMARY | 2024-08-20 09:30 | XMS_ITS ---
Author Organization Sebastián Aranda III, MD Address [address] [place] [address] Care Team Providers Care Director Network Development Name Role Phone Dr. Sebastián Aranda III [...] HCl 2 MG TAKE 1 CAPSULE BY [place] UT EVERY DAY AT BEDTIME Active Social History [...] Problem Status W/U Status Risk Notes Problem [id number] Acute deep vein thrombosis (DVT) of right popliteal vein (I82.431) Active confirmed A thrombophilia workup is Negative. He is tolerating the apixaban well. A follow-up for 4 weeks was arranged. Problem 771086456 Anticoagulated (Z79.01) Active confirmed There is no contraindication anticoagulation which will be for approximately 4 months. Problem [id number] Acute deep vein thrombosis (DVT) of popliteal [...] Provider Diagnosis Sebastián Aranda III, MD [address] [place] [address] [place] [address] 08/20/2024 Sebastián Aranda BPH (benign prostati c [...] HCl 2 MG TAKE 1 CAPSULE BY [place] UT EVERY DAY AT BEDTIME Pending Test Test Name Order Date LEG RT VENOUS DOPPLER 08/20/2024 Next Appt Details Follow Up: TV after Ultrasou nd at , Reason: TV Provider Name:Sebastián Aranda , 03/10/2025 09:45:00 AM, [address] [place] [address] [address], [place], [phone], Provider Name:Sebastián Aranda , 09/25/2025 10:00:00 AM, [address] [place] [address] [address], [place], [phone], Progress Notes * DILEEPOg RIGGINSDOB: 6 (68 yo M)Acc No.[id number]:08/20/2024 Patient: Rubi CORTEZOg Provider: Rudy Aranda MD :1955 A ge:68 Y S ex:Male Date:08/20/2024 Address:[address] [place] [address] [id number] Subjective: * Chief Complaints: * D eep venous thrombosis Right calfDepressionBenign prostatic hypertrophyHyperlipidemia * HPI: C OVID-19 Screening: Ramos smith recently went on a vacation trip to [facility] and while on the extended plane trip [...] A ggressive non-smoker Ramos smith is from [facility] for several years.They have 2 step daughters. 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 * Medications: T akingbuPROPion HCl 100 MG [...] Aranda MD Date: 0 08/20/2024 Generated for Donta conrad/Dewayne/Tavaiitting on: 1 06:18 PM EDT History and [...]
--- OUTSIDE RECORDS SUMMARY | 2024-08-21 04:57 | XMS_ITS ---
Author Organization Sebastián Aranda III, MD Address [address] [place] [address] Care Team Providers Care Inspector Packer Name Role Phone Dr. Sebastián Aranda III Primary Care Provider REASON FOR VISIT U/S showed clot in leg Social History Sex Assigned At : Social History Observation Description Sex Assigned At Male Encounters Encounter Location Date Provider Diagnosis Sebastián Aranda III, MD [address] [place] [address] [place] [address] 08/21/2024 Sebastián Aranda Plan Of Treatment Next Appt Details Provider Name:Sebastián Aranda , 03/10/2025 09:45:00 AM, [address] [place] [address] [place], [address], Provider Name:Sebastián Aranda , 09/25/2025 10:00:00 AM, [address] [place] [address] [place], [address], Progress Notes * Og LOBATODOB: 6 (68 yo M)Acc No.[id number]:08/21/2024 Patient: Rubi CORTEZOg :1955 A ge:68 Y S ex:Male Address:[address] [place] [phone] * true * Date: Generated for Donta conrad/Dewayne/Cristofer on: 06:18 PM EDT
--- OUTSIDE RECORDS SUMMARY | 2024-08-23 06:15 | XMS_ITS ---
Author Organization Sebastián Aranda III, MD Address [address] [place] [address] Care Team Providers Care Pump Servicer Supervisor Name Role Phone Dr. Sebastián Aranda III [...] HCl 2 MG TAKE 1 CAPSULE BY [facility] EVERY DAY AT BEDTIME Active Apixaban 5 MG one tablet Orally tw ice a day for 30 days 08/23/2024 Active buPROPion HCl 100 MG TAKE 1 TABLET BY [facility] TWICE DAILY Active Social History Tobacco Use: [...] Provider Diagnosis Sebastián Aranda III, MD [address] [place] [address] [place] [address] 08/23/2024 Sebastián Aranda BPH (benign prostati c [...] HCl 2 MG TAKE 1 CAPSULE BY [facility] EVERY DAY AT BEDTIME Apixaban 5 MG one tablet Orally tw ice a day for 30 days 08/23/2024 buPROPion HCl 100 MG TAKE 1 TABLET BY MOUTH TWICE DAILY Next Appt Details Follow Up: As Scheduled, Mayra son: Annual Exam Provider Name:Sebastián Lakhanine , 03/10/2025 09:45:00 AM, [address] [facility] [address], [place], [address], Provider Name:Sebastián Aranda , 09/25/2025 10:00:00 AM, [address] [place] [address] [address], [place], [address], Progress Notes * RENOOgDOB: (68 yo M)Acc No.[id number]:08/23/2024 Progress Notes Patient: Rubi CORTEZ Jimbotanvi Provider: Rudy Aranda MD :1955 A ge:68 Y S ex:Male Date:08/23/2024 Address:[address] [place] [phone] Subjective: * Chief Complaints: * D VT [...] MD Date: 0 08/23/2024 Generated for Donta conrad/Dewayne/Cristofer on: 1 06:19 PM EDT History and Physical Notes * [...]
--- OUTSIDE RECORDS SUMMARY | 2024-08-23 13:00 | XMS_ITS ---
Author Organization Sebastián Aranda III, MD Address [address] [place] [address] Care Team Providers Care Insole Tack Puller Hand Name Role Phone Dr. Sebastián Aranda III [...] 2 MG TAKE 1 CAPSULE BY MO [facility] EVERY DAY AT BEDTIME Active Social History Sex Assigned At : Social History Observation Description Sex Assigned At Male Encounters Encounter Location Date Provider Diagnosis Sebastián Aranda III, MD [address] [place] [address] [place] [id number] 08/23/2024 Sebastián Aranda Plan Of Treatment Medication [...] Name:Sebastián Aranda , 03/10/2025 09:45:00 AM, [address] [facility] [address], [place], [address], Provider Name:Sebastián Aranda , 09/25/2025 10:00:00 AM, [address] [place] [address] [address], [place], [address], Progress Notes * Og LOBATODOB: [birth year] (69 yo M)Acc No.[id number]:08/23/2024 Patient: Og GO Provider: Rudy Aranda MD :1955 A ge:68 Y S ex:Male Date:08/23/2024 Address:[address] [place], [place] [id number] Subjective: * Chief Complaints: * 1 . [...] 0 08/23/2024 Generated for Donta conrad/Dewayne/Cristofer on: 06:18 PM EDT
--- OUTSIDE RECORDS SUMMARY | 2024-09-24 06:00 | XMS_ITS ---
Author Organization Sebastián Aranda III, MD Address [address] [place] [address] Care Team Providers Care Occupational Health And Safety Officer Name Role Phone Dr. Sebastián Aranda III Primary Care Provider [phone] Allergies Allergen (clinical drug ingredient) Drug/Non Drug [...] Date Provider Diagnosis Sebastián Aranda III, MD [address] [place] [address] [place] [address] 09/24/2024 Sebastián Aranda Acute deep vein thrombosis [...] HCl 2 MG TAKE 1 CAPSULE BY [facility] EVERY DAY AT BEDTIME buPROPion HCl 100 MG TAKE 1 TABLET BY MOUTH TWICE DAILY Next Appt Details Follow Up: 3 Months, Reason: OV Provider Name:Sebastián Aranda , 03/10/2025 09:45:00 AM, [address] [place] [address] [address], [place], [address], Provider Name:Sebastián Aranda , 09/25/2025 10:00:00 AM, [address] [place] [address] [address], [place], [id number], Progress Notes * DILEEPOg RIGGINSDOB: [birth year] (68 yo M)Acc No.[id number]:09/24/2024 Progress Notes Patient: Og GO Provider: Rudy Aranda MD :1955 A ge:68 Y S ex:Male Date:09/24/2024 Address:[address] [place] [address], [place], [id number] Subjective: * Chief Complaints: * A nnual [...] egative H sarah is from [facility] for several years.They have 2 step daughters. 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 He was born in [place]. * Medications: T akingbuPROPion HCl 100 MG [...] AM)?ValueReference Range?Partial Thromboplastin Time30.026.0-36.8 - SEC ???Lab:Prothrombin 91693V (Order Date - 08/21/2024) (Collection Date & Time - 08/21/2024 09:58 AM)?ValueReference Range?Prothrombin 65656L NEGATIVE-?[id number]-SajgkzxrhdgpudSkz Below- ???Lab:Protein C Activity Reflex Ag (Order Date - 08/21/2024) (Collection Date & Time - 9:57 AM)?ValueReference Range?Protein C Activity 29289-918 - % normal?Protein C Antigen AddTNP-?Protein C Antigen TNP- ???Lab:Lupus Anticoagulant Panel (Order Date - 08/21/2024) (Collection Date & Time - 08/21/2024 09:57 AM)?ValueReference Range?Lupus Interpretationsee note-?PTT (LAC) Eiupjw35<=40 - sec?DRVVT Screen 31<=45 - sec?DRVVT ConfirmationTNP-?DRVVT 1:1 MixTNP-?DRVVT 1:1 Mix InterpretationTNP-?Hexagonal Phase NeutralizationTNP- ?Thrombin Clotting TimeTNP- ???Lab:Protein S Activity reflex Ag (Order Date - 08/21/2024) (Collection Date & Time - 9:57 AM)?ValueReference Range?Protein S Activity rflx Tot&Fu7347-468 - % normal?Protein S Total (Antigenic)TNP- ?Protein [...] Time - 08/21/2024 09:58 AM)?ValueReference Range?Anti-Thrombin III Kgqmfyks61857-805 - % normal * Lab:Complete Blood Count [...] Time - 08/21/2024 09:58 AM)?ValueReference Range?Anti-Thrombin III Kbwnhmf9299-119 - % normal ???Lab:Prothrombin Time INR (Order Date - 08/21/2024) (Collection Date & Time - 08/21/2024 09:57 AM)?ValueReference Range?Prothrombin Time10.3L 10.9-12.4 - SEC?INTERNATIONAL NORM RATIO0.90.9-1.1 - * Lab:Heladio AlonsoJoseline Pizaror l Fast * Collection Date 09/20/2024 09/12/2023 [...] 09/24/2024 Generated for Donta conrad/Dewayne/Taviaitting on: 1 06:19 PM EDT History and [...]
--- OUTSIDE RECORDS SUMMARY | 2024-12-25 06:30 | XMS_ITS ---
Author Organization Sebastián Aranda III, MD Address [address] [place] [address] Care Team Providers Care Air Twister Winder Name Role Phone Dr. Sebastián Aranda III [...] 2 MG TAKE 1 CAPSULE BY [facility] EVERY DAY AT BEDTIME Active Eliquis 5 MG as directed Orally twice a day 2024 Active Apixaban 5 MG one tablet Orally twice a day 2024 Active Finasteride 5 MG 1 tablet Orally Once a day Active Tadalafil 5 MG 1 tablet as needed O rally Once a day Active buPROPion HCl 100 MG TAKE 1 TABLET BY [facility] TWICE DAILY Active Social History Tobacco [...] Provider Diagnosis Sebastián Aranda III, MD [address] [place] [address] [place] [address] 12/25/2024 Sebastián Aranda Acute deep vein thrombosis [...] 2 MG TAKE 1 CAPSULE BY [facility] EVERY DAY AT BEDTIME Eliquis 5 [...] Name:Sebastián Aranda , 03/10/2025 09:45:00 AM, [address] [place] [address] [address], [place], [phone], Provider Name:Sebastián Aranda , 09/25/2025 10:00:00 AM, [address] [place] [address] [address], [place], [address], Progress Notes * Og LOBATODOB: 6 (69 yo M)Acc No.[id number]:12/25/2024 Progress Notes Patient: Rubi CORTEZ Jimbotanvi Provider: Rudy Aranda MD :1955 A ge:69 Y S ex:Male Date:12/25/2024 Address:[address] [place] [address] [place], [phone] Subjective: * Chief Complaints: * D epressionBenign [...] dditional Findings: Tobacco non-user A ggressive nonsmoker Ramos smith is from [facility] for several years.They have 2 step daughters. 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 * Medications: T akingbuPROPion HCl 100 MG [...] 12/25/2024 Generated for Donta conrad/Dewayne/eTransmitting on: 1 06:18 PM EDT History and [...]
--- OUTSIDE RECORDS SUMMARY | 2025-02-13 18:18 | XMS_ITS | Patient Health Record ---
Author Organization Sebastián Aranda III, MD Address [address] [address] Care Team Providers Care Bartender Manager Name Role Phone Dr. Sebastián Aranda III [...] Negative Negative - Prostate Specific Antigen Reviewed date:08/17/2024 08:41:07 PM Interpretation: Performing Lab:[facility], [address] [place] [phone] Notes/Report: Prostate Specific Antigen 4.48 <0.05-4.0 ng/mL PSA methodology: Bermeo Alinity i Chemiluminescent Microparticle Immunoassay (CMIA) Complete Blood Count Auto Di ff Reviewed date:08/25/2024 07:54:07 PM Interpretation: Performing Lab:[facility], [address] [place] [phone] Notes/Report: White Blood Count 6.3 4.8-10.8 X10*3/uL [...] INR Reviewed date:08/25/2024 07:54:07 PM Interpretation: Performing Lab:[facility], [address] [place] [phone] Notes/Report: Prothrombin Time 10.3 10.9-12.4 SEC INTERNATIONAL [...] Time Reviewed date:08/25/2024 07:54:07 PM Interpretation: Performing Lab:[facility], [address] [place] [phone] Notes/Report: Partial Thromboplastin Time 30.0 26.0-36.8 SEC For information regarding the monitoring of direct thrombin inhibitors, please refer to Pharmacy. Protein C Activity Reflex Ag Reviewed date:09/24/2024 10:24:11 AM Interpretation: Performing Lab:[facility], [address] [place] [phone] Notes/Report: Protein C Activity 117 70-180 % normal THIS TEST WAS PERFORMED AT: [facility] [address] DAX MCCULLOUGH MD,PHD Protein C Antigen Add TNP Protein C Antigen TNP Protein S Activity reflex Ag Reviewed date:09/24/2024 10:24:11 AM Interpretation: Performing Lab:[facility], [address] [place] [phone] Notes/Report: Protein S Activity rflx Tot Fr 95 70-150 % normal THIS TEST WAS PERFORMED AT: [facility] [address] [place] [address] DAX MCCULLOUGH MD,PHD Protein S Total (Antigenic) TNP Protein S Free Antigen TNP Anti-Thrombin III Activity Reviewed date:09/24/2024 10:24:11 AM Interpretation: Performing Lab:[facility], [address] [place] [phone] Notes/Report: Anti-Thrombin III Activity 104 80-135 % normal THIS TEST WAS PERFORMED AT: [facility] [address] [place] [address] DXA MCCULLOUGH MD,PHD Anti-Thrombin III Antigen Reviewed date:09/24/2024 10:24:11 AM Interpretation: Performing Lab:[facility], [address] [place] [phone] Notes/Report: Anti-Thrombin III Antigen 90 80-120 % normal THIS TEST WAS PERFORMED AT: [facility]/[address] [address] DAX MCCULLOUGH MD,PHD Factor V Leiden Reviewed date:09/24/2024 10:24:11 AM Interpretation: Performing Lab:[facility], [address] [place] [phone] Notes/Report: Factor V Leiden NEGATIVE FACTOR V [...] and results monitored by Joshua Ramirez, Ph.D., [facility], [facility], [facility]. VARIANT ANALYSIS: The Factor V Leiden [...] Health care providers, please contact your local [employer] genetic counselor or call Manomasa ([phone]) for assistance with interpretation of these results. This test was developed and its analytical performance characteristics have been determined by [employer] [facility]. It has not been cleared or approved by the FDA. This assay has been validated pursuant to the CLIA regulations and is used for clinical purposes. THIS TEST WAS PERFORMED AT: [employer] [address] [place] [address] EVONNE FIGUEROA MD,PHD,SANTO Prothrombin 65392I Reviewed date:09/24/2024 10:24:11 AM Interpretation: Performing Lab:[facility], [address] [place] [phone] Notes/Report: Prothrombin 08261T NEGATIVE RESULT: G 69951G VARIANT NOT DETECTED [id number] See Below INTERPRETATION: This individual is negative (normal) for the O86902R variant in the Prothrombin/Factor II gene. Increased risk of thrombophilia can be caused by a variety of genetic and non-genetic factors not screened for by this assay. Laboratory testing supervised and results monitored by Joshua Ramirez, Ph.D., [facility], [facility], [facility]. The N23873V mutation [GE278272.1: g.21764G>A (c.*97G>A)] in the Prothrombin/Factor II gene is the second most common inherited risk factor for thrombosis occurring in approximately 2% of Caucasians. Presence of the mutation is associated with an elevation of prothrombin levels to about 30% above normal in heterozygotes and to 70% above normal in homozygotes. Prothrombin (Q71691F) mutations are detected by amplification of their [...] Health care providers, please contact your local [employer] genetic counselor or call [phone] ([phone]) for assistance with interpretation of these results. This test was developed and its analytical performance characteristics have been determined by [employer] [facility]. It has not been cleared or approved by the FDA. This assay has been validated pursuant to the CLIA regulations and is used for clinical purposes. THIS TEST WAS PERFORMED AT: [facility] [address] [place] [address] EVONNE FIGUEROA MD,PHD,SANTO Lupus Anticoagulant Panel Reviewed date:09/24/2024 10:24:11 AM Interpretation: Performing Lab:[facility], [address] [place] [phone] Notes/Report: Lupus Interpretation see note A Lupus Anticoagulant is not detected. Reference Range: Not Detected For additional information, please refer to http://education.Oncovision/faq/FA Q01v2 (This link is being provided for informational/ educational purposes only.) This interpretation is based on the following test results. PTT (LAC) Screen 37 <=40 sec DRVVT Screen 31 <=45 sec THIS TEST WAS PERFORMED AT: [employer]/[address] [address] DAX MCCULLOUGH MD,PHD DRVVT Confirmation TNP DRVVT 1:1 Mix TNP DRVVT 1:1 Mix Interpretation TNP Hexagonal Phase Neutralization TNP Thrombin Clotting Time TNP Comprehensive Met. Panel Reviewed date:08/25/2024 07:54:07 PM Interpretation: Performing Lab:[facility], [address] [place] [phone] Notes/Report: Sodium 138 135-145 mmol/L Potassium 4.5 [...] date:08/25/2024 07:54:07 PM Interpretation: Performing Lab: Notes/Report: [address] [address] Ultrasound Report Signed Patient: Og Lobato MR#: [id number] : 1955 Acct:[id number] Age/Sex: 68 / M ADM Date: 08/21/24 Loc: HO.US Attending Dr: Sebastián Aranda MD Ordering Physician: Sebastián Aranda MD Date of Service: 08/21/24 Procedure(s): US venous duplex LE RT Accession Number(s): [id number] cc: Sebastián Aranda MD EXAMINATION: US LOWER [...] Agustin MD Signed By: <Electronically signed by Sebatsián Agustin MD in OV> 08/21/24 0820 DD/ 0734 TD/TT: 08/21/24 0801 Account Services Associate: [address] [address] Ultrasound Report Signed Patient: Og Lobato MR#: [id number] : 1955 Acct:[id number] Age/Sex: 68 / M ADM Date: 08/21/24 Loc: HO.US Attending Dr: Sebastián Aranda MD Ordering Physician: Sebastián Aranda MD Date of Service: 08/21/24 Procedure(s): US venous duplex LE RT Accession Number(s): [id number] cc: Sebastián Aranda MD EXAMINATION: US LOWE [...] 08/21/24 0820 DD/ 0734 TD/TT: 08/21/24 0801 Account Services Associate: Complete Blood Count Auto Di ff Reviewed date:09/24/2024 10:24:11 AM Interpretation: Performing Lab:[facility], [address] [place] [phone] Notes/Report: White Blood Count 5.5 4.8-10.8 X10*3/uL [...] NRBC Abs Auto 0.000 0.0-0.012 X10*3/uL Comprehensive [place]. Panel Fa st Reviewed date:09/24/2024 10:24:11 AM Interpretation: Performing Lab:[facility], [address] [place] [phone] Notes/Report: Sodium 143 135-145 mmol/L Potassium 4.0 [...] Panel Reviewed date:09/24/2024 10:24:11 AM Interpretation: Performing Lab:[address] [address] Notes/Report: Triglycerides 86 <150 mg/dL Desirable Triglyceride: [...] Total Reviewed date:09/24/2024 10:24:11 AM Interpretation: Performing Lab:[facility], [address] [place] [phone] Notes/Report: Prostate Specific Ag Total 4.4 < OR = 4.0 ng/mL Percent Free Prostate Spec Ag 18 >25 % (calc) PSA(ng/mL) Free PSA(%) Estimated(x) Probability of Cancer(as%) 0-2.5 (*) Approx. 1 2.6-4.0(1) 0-27(2) 24(3) 4.1-10(4) 0-10 56 11-15 28 16-20 20 21-25 16 >or =26 8 >10(+) N/A >50 References:(1)Bib et al.:Urology 60: 469-474 (2001) (2)Bib et al.:J.Urol 168: 922-925 (2001) Free PSA(%) Sensitivity(%) Specificity(%) < or = 25 85 19 < or = 30 93 9 (3)Catalona et al.:LYNDA 277: 0482-7820 (1996) (4)Catalona et al.:LYNDA 279: 4044-9499 (1997) (x)These estimates vary with age, ethnicity, family [...] mind. PSA was performed using the Marva [place] Immunoassay method. Values obtained from different assay methods cannot be used interchangeably. PSA levels, regardless of value, should not be interpreted as absolute evidence of the presence or absence of disease. THIS TEST WAS PERFORMED AT: [facility] [address] [address] DEIDRA SANCHEZ MD Free Prostate Spec Ag 0.8 PSA,Total (Free>4and<10) Reviewed date:11/16/2024 07:19:36 PM Interpretation: Performing Lab:[facility], [address] [place] [phone] Notes/Report: PSA,Total (Free>4and<10) 3.71 0.00-4.00 ng/mL A [...] between 4.0 and 10.0 ng/mL. PSA methodology: Bermeo Alinity i Chemiluminescent Microparticle Immunoassay (CMIA) Reason For Referral No Information Medications Medication SIG (Take, Route, Fr equency, Duration) Notes Start Date End Date Status buPROPion HCl 100 MG TAKE 1 TABLET BY [facility] TWICE DAILY for 90 Active Terazosin HCl 2 MG TAKE 1 CAPSULE BY [facility] EVERY DAY AT BEDTIME Active Eliquis 5 MG as directed Orally twice a day 2024 Active Apixaban 5 MG one tablet Orally twice a day 2024 Active Finasteride 5 MG 1 tablet Orally Once a day Active Tadalafil 5 MG 1 tablet as needed O rally Once a day Active Immunizations Vaccine Route Administration Date Status [...] Problem Status W/U Status Risk Notes Problem 97630755 Depression (F32.9) Active confirmed His bupropion w as discontinued. His depression has been addressed and is well controlled. He is able to conduct all of the activities of daily life. 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 He does not wish treatment at this time. Problem 247858951 BPH (benign prostatic hyperplasia) (N40.0) Active confirmed He rises from sleep once or twice a night. He is now under the care of a urologist. He is compliant with all of his medications. Problem 570203399 Anticoagulated (Z79.01) Active confirmed There is no contraindication anticoagulation which will be for approximately 4 months. Problem 116350615 Erectile dysfunction (N52.9) Active confirmed This complaint is well controlled with oral medication. However, he says he hardly ever has a opportunity to use it Problem 44211689 Penicillin allergy (Z88.0) Active confirmed He is aware of the allergy and avoids penicillin. Problem 186682750782201 History of herpes zoster (Z86.19) Active confirmed He has had no further outbreaks of this problem. Problem Hyperlipidaemia (17246872) Hyperlipidemia, unspecified hyperlipidemia type (E78.5) Active confirmed Comprehensive blood work is being done periodically. No change in his regimen was made. Problem 135714479176933 Acute deep vein thrombosis (DVT) of popliteal vein of right lower extremity (I82.431) Active confirmed There is no contraindication to anticoagulation which is ongoing. The thrombophilia evaluation is pending. Problem 609788497991284 Acute deep vein thrombosis (DVT) of right popliteal vein (I82.431) Active confirmed A thrombophilia workup is Negative. He is tolerating the apixaban well. A follow-up for 4 weeks was arranged. Vital Signs Heart Rate 81 /min 12/25/2024 Temperature 98.1 degrees Fahrenheit 12/25/2024 Blood pressure diastolic 85 mm Hg 12/25/2024 Height 68 in 12/25/2024 Blood pressure systolic 129 mm Hg 12/25/2024 Weight 148 lbs 12/25/2024 BMI 22.5 kg/m2 12/25/2024 Encounters Encounter Location Date Provider Diagnosis Sebastián Aranda III, MD [address] [place] [address] [place] [phone] 08/20/2024 Sebastián Aranda BPH (benign prostati c hyperplasia) N40.0 ; Acute deep vein thrombosis (DVT) of popliteal vein of right lower extremity I82.431 ; Depression F32.9 ; Palmar fascial fibromatosis [Dupuytren] M72.0 ; Hyperlipidemia, unspecified hyperlipidemia type E78.5 and Anticoagulated Z79.01 Sebastián Aranda III, MD [address] [place] [address] [place] [address] 08/23/2024 Sebastián Aranda BPH (benign prostati c hyperplasia) N40.0 ; Acute deep vein thrombosis (DVT) of right popliteal vein I82.431 ; Depression F32.9 ; Hyperlipidemia, unspecified hyperlipidemia type E78.5 and Palmar fascial fibromatosis [Dupuytren] M72.0 Sebastián Aranda III, MD [address] [place] [address] [place] [address] 09/24/2024 Sebastián Aranda Acute deep vein thrombosis (DVT) of right popliteal vein I82.431 ; BPH (benign prostatic hyperplasia) N40.0 ; Depression F32.9 ; Anticoagulated Z79.01 ; Palmar fascial fibromatosis [Dupuytren] M72.0 and Hyperlipidemia, unspecified hyperlipidemia type E78.5 Sebastián Aranda III, MD [address] [place] [address] [place] [address] 12/25/2024 Sebastián Aranda Acute deep vein thrombosis (DVT) of right popliteal vein I82.431 ; Acute deep vein thrombosis (DVT) of popliteal vein of right lower extremity I82.431 ; BPH (benign prostatic hyperplasia) N40.0 ; Erectile dysfunction N52.9 ; Depression F32.9 and Anticoagulated Z79.01 Sebastián Aranda III, MD [address] [place] [address] [place] [address] 08/21/2024 Sebastián Aranda Assessments Encounter Date Diagnosis [...] ongoing. The thrombophilia evaluation is pending. 12/25/2024 Acute deep vein thrombosis (DVT) of right popliteal vein (ICD-10 - I82.431) A thrombophilia workup is Negative. He is tolerating the apixaban well. A follow-up for 4 weeks was arranged. 08/20/2024 Depression (ICD-10 - F32.9) His bupropion [...] of the activities of daily life. 12/25/2024 BPH (benign prostatic hyperplasia) (ICD-10 - N40.0) He rises from sleep once or twice a night. He is now under the care of a urologist. He is compliant with all of his medications. 08/20/2024 Palmar fascial fibromatosis [Dupuytren] (ICD-10 - [...] which will be for approximately 4 months. 12/25/2024 Erectile dysfunction (ICD-10 - N52.9) This complaint is well controlled with oral medication. However, he says he hardly ever has a opportunity to use it 08/20/2024 Hyperlipidemia, unspecified hyperlipidemia type (ICD-10 - [...] does not wish treatment at this time. 12/25/2024 Depression (ICD-10 - F32.9) His bupropion was discontinued. His depression has been addressed and is well controlled. He is able to conduct all of the activities of daily life. 08/20/2024 Anticoagulated (ICD-10 - Z79.01) There is no contraindication anticoagulation which will be for approximately 4 months. 09/24/2024 Hyperlipidemia, unspecified hyperlipidemia type (ICD-10 - E78.5) Comprehensive blood work is being done periodically. No change in his regimen was made. 12/25/2024 Anticoagulated (ICD-10 - Z79.01) There is no contraindication anticoagulation which will be for approximately 4 months. Plan Of Treatment Pending Test Test Name Order Date PROFILE, FASTING (COMPREHENSIVE METABOLI C) 01/22/2024 PSA, TOTAL 01/22/2024 US LEG RT VENOUS DOPPLER 08/20/2024 CBC WITH AUTO DIFF 01/22/2024 Lipid Panel 01/22/2024 Next Appt Details Provider Name:Sebastián Aranda , 03/10/2025 09:45:00 AM, [address] [place] [address] [address], [place], [address], Provider Name:Sebastián Aranda , 09/25/2025 10:00:00 AM, [address] [place] [address] [address], [place], [address], Insurance Providers Payer Name Payer Address Payer Phone Subscriber Number Group Number Insured Name Patient Relationship to Insured Coverage Start Date Coverage End Date [facility] [address] [facility] [phone] [id number] Og Lobato Self - patient is the insured MEDICARE NGS [address] [facility] [place] [place] [address] [id number] Og Lobato Self - patient is the insured Medical (General) History Medical History History ICD Code shingles age 10 depression Dupuyten's contractures allergic amoxicillin ED BPH Surgical History Surgery Date(Month/Year) No history Tonsils removed at 7 years old GI biopsy 04/2019 negative colonoscopy 2008 Hospitalization History Reason Date(Month/Year) No history
[2025-02-13 18:19] LABS: PSA,Total (Free>4and<10) 2.98 ng/mL (0.00-4.00)
== END 2025-02-13 16:08 | disposition home or self-care (01) ==
LOC: HO.LAB 16:07
PROVIDERS: PCP Internal Medicine Medical Oncology; Visit Provider Nurse Practitioner Family
DX: N40.0 Benign prostatic hyperplasia without lower urinary tract symptoms (principal); R97.20 Elevated prostate specific antigen [PSA]; Z12.5 Encounter for screening for malignant neoplasm of prostate
CPT/HCPCS: 36415; 84153

== ENCOUNTER 2025-02-27 11:50 | Outpatient (AMB) | payer MEDICARE, SELFPAY ==
--- OUTSIDE RECORDS SUMMARY | 2023-08-29 03:53 | XMS_ITS ---
Author Organization Sebastián Aranda III, MD Address [address] [place] [address] Care Team Providers Care Spray Worker Name Role Phone Dr. Sebastián Aranda III Primary Care Provider REASON FOR VISIT Colorectal Cancer Screening Social History Sex Assigned At : Social History Observation Description Sex Assigned At Male Encounters Encounter Location Date Provider Diagnosis Sebastián Aranda III, MD [address] [place] [address] [place] [address] 08/29/2023 Sebastián Aranda Plan Of Treatment Next Appt Details Provider Name:Sebastián Aranda , 03/10/2025 09:45:00 AM, [address] [place] [address] [place], [address], Provider Name:Sebastián Aranda , 09/25/2025 10:00:00 AM, [address] [place] [address] [place], [address], Progress Notes * Og LOBATODOB: 6 (67 yo M)Acc No.[id number]:08/29/2023 Patient: Rubi Og cook :1955 A ge:67 Y S ex:Male Address:[address] [place] [address] [place] [address] * true * Date: Generated for Donta conrad/Dewayne/Cristofer on: 04/29/2024 03:00 PM EST
--- OUTSIDE RECORDS SUMMARY | 2023-09-13 05:50 | XMS_ITS ---
Author Organization Sebastián Aranda III, MD Address [address] [place] [address] Care Team Providers Care Clinic Office Assistant Name Role Phone Dr. Sebastián Aranda III Primary Care Provider REASON FOR VISIT Needs call back from Social History Sex Assigned At : Social History Observation Description Sex Assigned At Male Encounters Encounter Location Date Provider Diagnosis Sebastián Aranda III, MD [address] [place] [address] [place] [address] 09/13/2023 Sebastián Aranda Plan Of Treatment Next Appt Details Provider Name:Sebastián Aranda , 03/10/2025 09:45:00 AM, [address] [place] [address] [place], [address], Provider Name:Sebastián Aranda , 09/25/2025 10:00:00 AM, [address] [place] [address] [place], [address], Progress Notes * Og LOBATODOB: 6 (67 yo M)Acc No.[id number]:09/13/2023 Patient: Rubi Og cook :1955 A ge:67 Y S ex:Male Address:[address] [place] [address], [place] [address] * true * Date: Generated for Donta conrad/Dewayne/Cristofer on: 04/29/2024 02:59 PM EST
--- OUTSIDE RECORDS SUMMARY | 2023-09-22 05:00 | XMS_ITS ---
Author Organization Sebastián Aranda III, MD Address [address] [place] [address] Care Team Providers Care Hangar Attendant Name Role Phone Dr. Sebastián Aranda III Primary Care Provider [phone] Allergies Allergen (clinical drug ingredient) Drug/Non Drug Allergy documented on EMR Reaction Allergy Type Onset Date Status amoxicillin Amoxicillin rash Drug Allergy Act graeme Results Component Value Reference Range Notes URINE DIP STICK Reviewed date:09/22/2023 10:40:46 AM Interpretation: Performing Lab: Notes/Report: SG 1.020 1.005 - 1.025 pH 5.0 5.0 - 9.0 CIELO 15 Negative - NIT Negative Negative - PRO 15 Negative - Trace GLU Negative Negative - KET Negative Negative - UBG 0.2 0.1 - 1.8 STEF Negative 0.2 - 1.3 BLD Negative Negative - REASON FOR VISIT Annual Exam Medications Medication SIG (Take, Route, Frequency, Duration) Notes Start Date End Date Status Tadalafil 5 MG 1 tablet as needed O rally Once a day Active Terazosin HCl 2 MG TAKE 1 CAPSULE BY MO U[facility] EVERY DAY AT BEDTIME Active Finasteride 5 MG 1 tablet Orally Once a day Active buPROPion HCl 100 MG TAKE 1 TABLET BY MO UTH TWICE DAILY Active Clotrimazole-Betamethason e 1-0.05 % 1 application Externally Twice a day for 14 days 09/22/2023 11/17/2023 Active Social History Tobacco Use: Social History Observation Description Date Details (start date - stop date) Never Smoker NA - NA Sex Assigned At : Social History Observation Description Sex Assigned At Male Tobacco Use/Smoking Question Answer Notes Patient is a nonsmoker Additional Findings: Tobacco Non-User Aggressive non-smoker Alcohol Screen Question Answer Notes Did you have a drink containing alcohol in the p ast year? 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 He does not wish treatment at this time. Vital Signs Temperature 98.4 degrees Fahrenheit 09/22/19 24 Blood pressure systolic 139 mm Hg 09/22/19 24 Blood pressure diastolic 81 mm Hg 024 Heart Rate 73 /min 09/22/2023 Height 68 in 09/22/2023 Weight 148 lbs 09/22/2023 BMI 22.5 kg/m2 09/22/2023 Encounters Encounter Location Date Provider Diagnosis Sebastián Aranda III, MD [address] [place] [address] [place] [address] 09/22/2023 Sebastián Aranda BPH (benign prostati c hyperplasia) N40.0 ; Hyperlipidemia, unspecified hyperlipidemia type E78.5 ; Depression F32.9 ; Erectile dysfunction N52.9 ; Palmar fascial fibromatosis [Dupuytren] M72.0 ; Elevated PSA R97.20 and Fungal dermatitis B36.9 Assessments Encounter Date Diagnosis (ICD Code) Assessment Notes Treat ment Notes Treatment Clinical Notes 09/22/2023 BPH (benign prostati c hyperplasia) (ICD-10 - N40.0) He rises from sleep once or twice a night. He is now under the care of a urologist. He is compliant with all of his medications. 09/22/2023 Hyperlipidemia, unspecified hyperlipidemia type (ICD-10 - E78.5) His total cholesterol is 224. This is slightly higher than in the past. We are reviewed his diet and nutrition. He will make an effort to avoid cholesterol rich food. 09/22/2023 Depression (ICD-10 - F32.9) His bupropion was discontinued. His depression has been addressed and is well controlled. He is able to conduct all of the activities of daily life. 09/22/2023 Erectile dysfunction (ICD-10 - N52.9) This complaint is well controlled with oral medication. However, he says he hardly ever has a opportunity to use it 09/22/2023 Palmar fascial fibromatosis [Dupuytren] (ICD-10 - M72.0) He has mild bilateral Dupuytren's contractures but says they do not bother him. He does not wish treatment at this time. 09/22/2023 Elevated PSA (ICD-10 - R97.20) His PSA is now 3.09 and this problem has resolved. 09/22/2023 Fungal dermatitis (ICD-10 - B36.9) Is given a prescription for clotrimazole betamethasone. Plan Of Treatment Medication Medication Name Sig Start Date Stop Date Notes Tadalafil 5 MG 1 tablet as needed O rally Once a day Terazosin HCl 2 MG TAKE 1 CAPSULE BY [facility] EVERY DAY AT BEDTIME Finasteride 5 MG 1 tablet Orally Once a day buPROPion HCl 100 MG TAKE 1 TABLET BY MO UT TWICE DAILY Clotrimazole-Betamethasone 1-0.05 % 1 application Externally Twice a day for 14 days 09/22/2023 11/17/2023 Next Appt Details Follow Up: 4 Months, Reason: OV Provider Name:Sebastián Aranda , 03/10/2025 09:45:00 AM, [address] [place] [address] [address], [place], [address], Provider Name:Sebastián Aranda , 09/25/2025 10:00:00 AM, [address] [place] [address] [place], [address], Progress Notes * Og LOBATODOB: 6 (67 yo M)Acc No.[id number]:09/22/2023 Progress Notes Patient: Rubi cook Jimbotanvi Provider: Rudy Aranda MD :1955 A ge:67 Y S ex:Male Date:09/22/2023 Address:[id number] Subjective: * Chief Complaints: * A nnual Exam * HPI: D epression Screening: d. He returns at the age of 67 for his annual physical examination. A new complaint is a rash around his neck and sternum and on both groins and both antecubital fossae. He has been to the urologist recently. He complains of nocturia up to 3 times a night. His examination was otherwise unremarkable. He was given a prescription for an antifungal with a steroid. His depression is stable. No change in his medications was necessary today. PHQ-9 L ittle interest or pleasure in doing things?Not at all F eeling down, depressed, or hopeless N ot at all T rouble falling or staying asleep, or sleeping too much N ot at all F eeling tired or having little energy N ot at all P oor appetite or overeating N ot at all F eeling bad about yourself or that you are a failure, or have let yourself or your family down N ot at all T rouble concentrating on things, such as reading the newspaper or watching television N ot at all M oving or speaking so slowly that other people could have noticed; or the opposite, being so fidgety or restless that you have been moving around a lot more than usual N ot at all T houghts that you would be better off or of hurting yourself in some way N ot at all T otal Score 0 C OVID-19 Screening: Questions H ave you experienced fever, chills, cough, sore throat, shortness of breath, difficulty breathing, muscle aches, loss of taste or smell? N o H ave you been exposed to the virus within the last 10 days? N o H ave you travelled internationally in the last 10 days? N o H ave you been exposed to COVID-19 in the past? Y es S CARLITA Questions: SDOH Questions I n the past year have you been worried about losing your housing? N o I n the past year have you or any family members you live with been unable to get any of the following when it was really needed? Check all that apply: N one * ROS: G eneral/Constitutional: pain o nly normal aches and pains. C hills d enies.?Fatigue a dmits. F ever d enies. E NT: Decreased hearing d enies. R espiratory: Cough d enies. C ardiovascular: Chest pain with exertion d enies. D yspnea on exertion?denies. S hortness of breath d enies. G astrointestinal: Constipation o ccasional. D ecreased appetite d enies. D iarrhea d enies. H eartburn d enies. N ausea d enies. R ectal bleeding d enies. V omiting d enies. H ematology: bruising d enies. p etechiae d enies. S wollen glands n one have been noted. G enitourinary: Frequent urination t hree times a night. M usculoskeletal: Muscle aches d enies. P ainful joints d enies. S ciatica d enies. W eakness d enies. S kin: Itching d enies. R suresh G roins and antecubital fossae and anterior chest. S kin lesion(s) d enies. N eurologic: Difficulty speaking d enies. D izziness d enies.?Headache d enies. L ow back pain d enies. P sychiatric: Depressed mood w hich is mild. * Medical History: * Surgical History: n egative colonoscopy 2008GI biopsy 04/2019Tonsils removed at 7 years old * Hospitalization/Major Diagno stic Procedure: D enies Past Hospitalization * Family History: F ather: 80 yrs, chronic obstructive pulmonary disease. M other: alive 89 yrs, CVA by CT, dementia. P aternal Grand Father: . P aternal Grand Mother: , cardiac disease. M aternal Grand Father: , diabetes mellitus, myocardial infarction. M aternal Grand Mother: , car accident. 1 brother(s) , 1 sister(s) - healthy. . His brother is Sebastián and sister Emerald Gastelum. * Social History: T obacco Use: T obacco Use/Smoking P atient is a n onsmoker A dditional Findings: Tobacco Non-User A ggressive non-smoker D rugs/Alcohol: D rugs H ave you used drugs other than those for medical reasons in the past 12 months? N o Alcohol Screen D id you have a drink containing alcohol in the past year? N o P oints 0 I nterpretation N mer smith is from [facility] for several years.They have 2 step daughters. 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 He was born in [place]. * Medications: T akingTerazosin HCl 2 MG Capsule TAKE 1 CAPSULE BY MOUTH EVERY DAY AT BEDTIME buPROPion HCl 100 MG Tablet TAKE 1 TABLET BY MOUTH TWICE DAILY Finasteride 5 MG Tablet 1 tablet Orally Once a dayTadalafil 5 MG Tablet 1 tablet as needed Orally Once a dayMedication List reviewed and reconciled with the patientTaking Terazosin HCl 2 MG Capsule TAKE 1 CAPSULE BY MOUTH EVERY DAY AT BEDTIME Taking buPROPion HCl 100 MG Tablet TAKE 1 TABLET BY MOUTH TWICE DAILY Taking Finasteride 5 MG Tablet 1 tablet Orally Once a dayTaking Tadalafil 5 MG Tablet 1 tablet as needed Orally Once a dayMedication List reviewed and reconciled with the patient * Allergies: A moxicillin: aileen[Allergies Verified] Objective: * Vitals: H t: 68, Wt:148, BMI:22.5, BP:139/81, HR:73, Temp:98.4, Wt-k.13. * P ast Orders: Lab:Prostate Specific Antige n * Order Date 09/12/2023 02/16/2023 09/11/2021 Prostate Specific Antigen 3.09 (Ref Range: <0.05-4.0 ng/mL) 3.19 (Ref Range: <0.05-4.0 ng/mL) 5.39 H (Ref Range: <0.05-4.0 ng/mL) * Lab:Lipid Panel * Order Date 09/12/2023 09/07/2022 09/11/2021 Triglycerides 71 (Ref Range: <150 mg/dL) 77 (Ref Range: mg/dL) 77 (Ref Range: mg/dL) Cholesterol 224 H (Ref Range: <200 mg/dL) 202 (Ref Range: mg/dL) 210 (Ref Range: mg/dL) LDL Cholesterol Calculated 143 H (Ref Range: <100 mg/dL) 132 (Ref Range: mg/dl) 137 (Ref Range: mg/dl) HDL Cholesterol 67 (Ref Range: >40 mg/dL) 55 (Ref Range: mg/dL) 58 (Ref Range: mg/dL) * Lab:Heladio Pizarro l Fast * Order Date 09/12/2023 09/07/2022 09/07/2020 Sodium 141 (Ref Range: 135-145 mmol/L) 141 (Ref Range: 135-145 mmol/L) 141 (Ref Range: 135-145 mmol/L) Bilirubin Total 0.7 (Ref Range: 0.0-1.0 mg/dL) 0.8 (Ref Range: 0.0-1.0 mg/dL) 0.5 (Ref Range: 0.0-1.0 mg/dL) Aspartate Amino Transferase 17 (Ref Range: 5-37 U/L) 16 (Ref Range: 5-37 U/L) 23 (Ref Range: 5-37 U/L) Alanine Aminotransferase 16 (Ref Range: 0-40 U/L) 13 (Ref Range: 0-40 U/L) 18 (Ref Range: 0-40 U/L) Total Protein 6.4 L (Ref Range: 6.5-8.0 g/dL) 5.8 L (Ref Range: 6.5-8.0 g/dL) 6.1 L (Ref Range: 6.5-8.0 g/dL) Albumin Level 4.0 (Ref Range: 3.5-5.0 g/dL) 3.8 (Ref Range: 3.5-5.0 g/dL) 4.1 (Ref Range: 3.5-5.0 g/dL) Alkaline Phosphatase 70 (Ref Range: 39-117 U/L) 70 (Ref Range: 39-117 U/L) 69 (Ref Range: 39-117 U/L) Potassium 4.8 (Ref Range: 3.3-5.1 mmol/L) 4.3 (Ref Range: 3.3-5.1 mmol/L) 4.6 (Ref Range: 3.3-5.1 mmol/L) Chloride 106 (Ref Range: 96-108 mmol/L) 108 (Ref Range: 96-108 mmol/L) 105 (Ref Range: 96-108 mmol/L) Carbon Dioxide 30 H (Ref Range: 22-29 mmol/L) 27 (Ref Range: 22-29 mmol/L) 30 H (Ref Range: 22-29 mmol/L) Anion Gap 10 L (Ref Range: 12-20) 10 L (Ref Range: 12-20) 11 L (Ref Range: 12-20) Blood Urea Nitrogen 10 (Ref Range: 9-16 mg/dL) 14 (Ref Range: 9-16 mg/dL) 14 (Ref Range: 9-16 mg/dL) Creatinine 1.05 (Ref Range: 0.5-1.4 mg/dL) 1.22 (Ref Range: 0.5-1.4 mg/dL) 1.05 (Ref Range: 0.5-1.4 mg/dL) Estimated Glomerular Filt Rate > 60 59 > 60 Glucose Fasting 84 (Ref Range: 60-99 mg/dL) 86 (Ref Range: 60-99 mg/dL) 81 (Ref Range: 60-99 mg/dL) Calcium 9.3 (Ref Range: 8.4-10.2 mg/dL) 8.7 (Ref Range: 8.4-10.2 mg/dL) 9.1 (Ref Range: 8.4-10.2 mg/dL) * Lab:Complete Blood Count Aut o Diff * Order Date 09/12/2023 09/07/2022 09/11/2021 White Blood Count 6.5 (Ref Range: 4.8-10.8 X10*3/uL) 5.4 (Ref Range: 4.8-10.8 X10*3/uL) 5.4 (Ref Range: 4.8-10.8 X10*3/uL) Red Blood Count 5.15 (Ref Range: 4.60-5.80 X10*6/uL) 4.89 (Ref Range: 4.60-5.80 X10*6/uL) 4.76 (Ref Range: 4.60-5.80 X10*6/uL) Hemoglobin 15.0 (Ref Range: 14.0-18.0 g/dl) 14.3 (Ref Range: 14.0-18.0 g/dl) 13.7 L (Ref Range: 14.0-18.0 g/dl) Hematocrit 45.1 (Ref Range: 42.0-52.0 %) 43.6 (Ref Range: 42.0-52.0 %) 42.0 (Ref Range: 42.0-52.0 %) Mean Corpuscular Volume 87.6 (Ref Range: 80.0-98.0 fL) 89.2 (Ref Range: 80.0-98.0 fL) 88.2 (Ref Range: 80.0-98.0 fL) Mean Corpuscular Hemoglobin 29.1 (Ref Range: 27.0-33.0 pg) 29.2 (Ref Range: 27.0-33.0 pg) 28.8 (Ref Range: 27.0-33.0 pg) Mean Corpuscular HGB Conc 33.3 (Ref Range: 31.0-36.0 g/dl) 32.8 (Ref Range: 31.0-36.0 g/dl) 32.6 (Ref Range: 31.0-36.0 g/dl) Red Cell Distribution Width 13.5 (Ref Range: 11.0-16.0 %) 13.6 (Ref Range: 11.0-16.0 %) 13.2 (Ref Range: 11.0-16.0 %) Platelet Count 206 (Ref Range: 160-400 X10*3/uL) 196 (Ref Range: 160-400 X10*3/uL) 198 (Ref Range: 160-400 X10*3/uL) Mean Platelet Volume 9.7 (Ref Range: 9.4-12.4 fL) 10.2 (Ref Range: 9.4-12.4 fL) 10.4 (Ref Range: 9.4-12.4 fL) Neutrophils Percent Auto 54.2 (Ref Range: 45-73 %) 52.5 (Ref Range: 45-73 %) 53.9 (Ref Range: 45-73 %) Imm Gran Pct Auto 0.5 H (Ref Range: 0.0-0.4 %) 0.4 (Ref Range: 0.0-0.4 %) 0.4 (Ref Range: 0.0-0.4 %) Lymphocytes Percent Auto 24.5 (Ref Range: 20-40 %) 29.9 (Ref Range: 20-40 %) 28.3 (Ref Range: 20-40 %) Monocytes Percent Auto 10.8 (Ref Range: 2-11 %) 11.8 H (Ref Range: 2-11 %) 9.8 (Ref Range: 2-11 %) Eosinophils Percent Auto 9.1 H (Ref Range: 0-4 %) 4.7 H (Ref Range: 0-4 %) 6.7 H (Ref Range: 0-4 %) Basophils Percent Auto 0.9 (Ref Range: 0-2 %) 0.7 (Ref Range: 0-2 %) 0.9 (Ref Range: 0-2 %) NRBC Pct Auto 0.0 (Ref Range: 0.0-0.2 /100WBC) 0.0 (Ref Range: 0.0-0.2 /100WBC) 0.0 (Ref Range: 0.0-0.2 /100WBC) Neutrophils Absolute Auto 3.5 (Ref Range: 2.0-8.3 x10*3/uL) 2.8 (Ref Range: 2.0-8.3 x10*3/uL) 2.9 (Ref Range: 2.0-8.3 x10*3/uL) Imm Gran Abs Auto 0.03 (Ref Range: 0.00-0.03 X10*3/uL) 0.02 (Ref Range: 0.00-0.03 X10*3/uL) 0.02 (Ref Range: 0.00-0.03 X10*3/uL) Lymphocytes Absolute Auto 1.6 (Ref Range: 1.2-4.9 X10*3/uL) 1.6 (Ref Range: 1.2-4.9 X10*3/uL) 1.5 (Ref Range: 1.2-4.9 X10*3/uL) Monocytes Absolute Auto 0.7 (Ref Range: 0.1-1.2 X10*3/uL) 0.6 (Ref Range: 0.1-1.2 X10*3/uL) 0.5 (Ref Range: 0.1-1.2 X10*3/uL) Eosinophils Absolute Auto 0.6 H (Ref Range: 0.0-0.4 X10*3/uL) 0.3 (Ref Range: 0.0-0.4 X10*3/uL) 0.4 (Ref Range: 0.0-0.4 X10*3/uL) Basophils Absolute Auto 0.1 (Ref Range: 0.0-0.2 X10*3/uL) 0.0 (Ref Range: 0.0-0.2 X10*3/uL) 0.1 (Ref Range: 0.0-0.2 X10*3/uL) NRBC Abs Auto 0.000 (Ref Range: 0.0-0.012 X10*3/uL) 0.000 (Ref Range: 0.0-0.012 X10*3/uL) 0.000 (Ref Range: 0.0-0.012 X10*3/uL) * Examination: G eneral Examination: GENERAL APPEARANCE: p leasant, well nourished, well developed, in no acute distress, calm and relaxed , man. HEAD: a traumatic, normocephalic. EYES: e clarence, perrla, anicteric, conjugate. EARS: n ormal. NOSE: s eptum intact. ORAL CAVITY: n ormal, unremarkable. NECK/THYROID: n o jugular venous distention, no carotid bruit, thyroid normal. LYMPH NODES: n o enlarged lymph nodes,spleen normal. SKIN: n o suspicious lesions, anicteric, Pruritic scaling rash neck and upper sternum, antecubital fossae and both groins. HEART: n o clicks, gallops, murmurs, or rubs, regular rhythm, S1, S2 normal, no s3, or vascular bruits. LUNGS: c lear to auscultation . BREASTS: no masses palpable bilaterally. ABDOMEN: b owel sounds normal, no ascites, no organomegaly, no mass. RECTAL EXAM: n ormal tone , no masses palpable , no melena , no red blood , prostate normal , stool guaiac negative, 1 large skin tag. MUSCULOSKELETAL: e xtremities unremarkable, no clubbing, cyanosis or edema. PERIPHERAL PULSES: n ormal. NEUROLOGIC: a lert and oriented, cranial nerves 2-12 grossly intact, deep tendon reflexes 2+ symmetrical, motor strength normal upper and lower extremities, sensory exam intact. PSYCH: a lert, oriented , mood slightlydepressed. ? Assessment: * Assessment: 1. H yperlipidemia, unspecified hyperlipidemia type - E78.5, His total cholesterol is 224. This is slightly higher than in the past. We are reviewed his diet and nutrition. He will make an effort to avoid cholesterol rich food. 2 . B PH (benign prostatic hyperplasia) - N40.0, He rises from sleep once or twice a night. He is now under the care of a urologist. He is compliant with all of his medications. 3 . D epression - F32.9, His bupropion was discontinued. His depression has been addressed and is well controlled. He is able to conduct all of the activities of daily life. 4. E rectile dysfunction - N52.9, This complaint is well controlled with oral medication. However, he says he hardly ever has a opportunity to use it 5 . P almar fascial fibromatosis [Dupuytren] - M72.0, He has mild bilateral Dupuytren's contractures but says they do not bother him. He does not wish treatment at this time. 6 . E levated PSA - R97.20, His PSA is now 3.09 and this problem has resolved. 7 . F ungal dermatitis - B36.9, Is given a prescription for clotrimazole betamethasone. Plan: * Treatment: 2. O thers Continue Terazosin HCl Capsule, 2 MG, TAKE 1 CAPSULE BY MOUTH EVERY DAY AT BEDTIME; C ontinue buPROPion HCl Tablet, 100 MG, TAKE 1 TABLET BY MOUTH TWICE DAILY; S tart Clotrimazole-Betamethasone Cream, 1-0.05 %, 1 application, Externally, Twice a day, 14 days, 45 Gram, Refills 3. * Labs: * L ab: URINE DIP STICK Value Reference Range S G 1.020 1.005 - 1.025 * p H 5.0 5.0 - 9.0 * L EU 15 Negative - * N IT Negative Negative - * P RO 15 Negative - Trace * G RASHID Negative Negative - * K ET Negative Negative - * U BG 0.2 0.1 - 1.8 * B IL Negative 0.2 - 1.3 * B LD Negative Negative - * Procedure Codes: 8 1002 URINE-NO MICRO * Follow Up: 4 Months (Reason: OV) * Images: * Sign off status: Completed true * Provider: Rudy Aranda MD Date: 0 09/22/2023 Generated for Printi ng/Emersong/eTransmitting on: 1 04/29/2024 03:01 PM EST History and Physical Notes * HPI (History of Present Illness) Category Sub-Category Detail Notes Depression Screening PHQ-9 Little inte rest or pleasure in doing things: Not at all Feeling down, depressed, or hopeless: No t at all Trouble falling or staying asleep, or sl eeping too much: Not at all Feeling tired or having little energy: N ot at all Poor appetite or overeating: Not at all Feeling bad about yourself o r that you are a failure, or have let yourself or your family down: Not at all Trouble concentrating on thi ngs, such as reading the newspaper or watching television: Not at all Moving or speaking so slowly that other people could have noticed; or the opposite, being so fidgety or restless that you have been moving around a lot more than usual: Not at all Thoughts that you would be b lexi off or of hurting yourself in some way: Not at all Total Score: 0 COVID-19 Screening Questions Have you had any new onset fever, chills, cough, congestion, sore throat, shortness of breath, muscle aches?: No Have you been exposed to the virus withi n the last 10 days?: No Have you travelled internationally in e last 10 days?: No Have you been exposed to COVID-19 in the past?: Yes SDOH Questions SDOH Questions In the past year have you been worried about losing your housing?: No In the past year have you or any family members you live with been unable to get any of the following when it was really needed? Check all that apply:: None Examination Category Sub-Category Detail Notes General Examination GENERAL APPEARANCE: pleasant , well nourished, well developed, in no acute distress, calm and relaxed , man HEAD: atraumatic, normocep halic EYES: eomi, perrla, anicte jah, conjugate EARS: normal NOSE: septum intact NECK/THYROID: no jugular venous di stention, no carotid bruit, thyroid normal HEART: no clicks, gallops, murmurs, or rubs, regular rhythm, S1, S2 normal, no s3, or vascular bruits LUNGS: clear to auscultatio n ABDOMEN: bowel sounds normal, no ascites, no organomegaly, no mass NEUROLOGIC: alert and oriented, cranial nerves 2-12 grossly intact, deep tendon reflexes 2+ symmetrical, motor strength normal upper and lower extremities, sensory exam intact SKIN: no suspicious lesion s, anicteric, Pruritic scaling rash neck and upper sternum, antecubital fossae and both groins PERIPHERAL PULSES: normal BREASTS: no masses palpable b ilaterally MUSCULOSKELETAL: extremities unremark able, no clubbing, cyanosis or edema LYMPH NODES: no enlarged lymph no jason,spleen normal RECTAL EXAM: normal tone , no mas ses palpable , no melena , no red blood , prostate normal , stool guaiac negative, 1 large skin tag PSYCH: alert, oriented , mo od slightlydepressed ORAL CAVITY: normal, unremarkable
--- OUTSIDE RECORDS SUMMARY | 2024-01-22 05:45 | XMS_ITS ---
Author Organization Sebastián Aranda III, MD Address [address] [place] [address] Care Team Providers Care Visual Design Lead Name Role Phone Dr. Sebastián Aranda III Primary Care Provider [phone] Allergies Allergen (clinical drug ingredient) Drug/Non Drug Allergy documented on EMR Reaction Allergy Type Onset Date Status amoxicillin Amoxicillin rash Drug Allergy Act graeme REASON FOR VISIT Benign prostatic hypertrophy, Depression, Hyperlipidemia, Dupuytren's contracture, Elevated PSA Medications Medication SIG (Take, Route, Fr equency, Duration) Notes Start Date End Date Status Tadalafil 5 MG 1 tablet as needed O rally Once a day Active Finasteride 5 MG 1 tablet Orally Once a day Active Terazosin HCl 2 MG TAKE 1 CAPSULE BY [facility] EVERY DAY AT BEDTIME Active buPROPion HCl 100 MG TAKE 1 TABLET BY [facility] TWICE DAILY Active Social History Tobacco Use: Social History Observation Description Date Details (start date - stop date) Never Smoker NA - NA Sex Assigned At : Social History Observation Description Sex Assigned At Male Tobacco Use/Smoking Question Answer Notes Patient is a nonsmoker Additional Findings: Tobacco Non-User Aggressive non-smoker Vital Signs Temperature 98.2 degrees Fahrenheit 01/22/20 24 Blood pressure systolic 122 mm Hg 01/22/20 24 Blood pressure diastolic 80 mm Hg 024 Heart Rate 113 /min 01/22/2024 Height 68 in 01/22/2024 Weight 150 lbs 01/22/2024 BMI 22.8 kg/m2 01/22/2024 Encounters Encounter Location Date Provider Diagnosis Sebastián Aranda III, MD [address] [place] [address] [address] [place], [place] [address] 01/22/2024 Sebastián Aranda BPH (benign prostati c hyperplasia) N40.0 ; Depression F32.9 ; Hyperlipidemia, unspecified hyperlipidemia type E78.5 ; Erectile dysfunction N52.9 and 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 He is now under the care of a urologist. He is compliant with all of his medications. 01/22/2024 Depression (ICD-10 - F32.9) His bupropion was discontinued. His depression has been addressed and is well controlled. He is able to conduct all of the activities of daily life. 01/22/2024 Hyperlipidemia, unspecified hyperlipidemia type (ICD-10 - E78.5) Comprehensive blood work is being done periodically. No change in his regimen was made. 01/22/2024 Erectile dysfunction (ICD-10 - N52.9) This complaint is well controlled with oral medication. However, he says he hardly ever has a opportunity to use it 01/22/2024 Palmar fascial fibromatosis [Dupuytren] (ICD-10 - M72.0) He has mild bilateral Dupuytren's contractures but says they do not bother him. He does not wish treatment at this time. Plan Of Treatment Medication Medication Name Sig Start Date Stop Date Notes Tadalafil 5 MG 1 tablet as needed Orally Once a day Finasteride 5 MG 1 tablet Orally Once a day Terazosin HCl 2 MG TAKE 1 CAPSULE BY [facility] EVERY DAY AT BEDTIME buPROPion HCl 100 MG TAKE 1 TABLET BY MOUTH TWICE DAILY Pending Test Test Name Order Date PROFILE, FASTING (COMPREHENSIVE METABOLI C) 01/22/2024 PSA, TOTAL 01/22/2024 CBC WITH AUTO DIFF 01/22/2024 Lipid Panel 01/22/2024 Next Appt Details Follow Up: As Scheduled, [place] son: OV, Annual Exam Provider Name:Sebastián Aranda , 03/10/2025 09:45:00 AM, [address] [facility] [address], [place], [address], Provider Name:Sebastián Aranda , 09/25/2025 10:00:00 AM, [address] [facility] [address], [place], [address], Progress Notes * Og LOBATODOB: 6 (68 yo M)Acc No.[id number]:01/22/2024 Progress Notes Patient: Og GO Provider: Rudy Aranda MD :1955 A ge:68 Y S ex:Male Date:01/22/2024 Address:[address] [place] [id number] Subjective: * Chief Complaints: * B enign prostatic hypertrophyDepressionHyperlipidemiaDupuytren's contractureElevated PSA * HPI: C OVID-19 Screening: Questions H ave you [...] to COVID-19 in the past? Y es * : The patient, Og, a 68-year-old male, came in for a medical management follow-up. He has been experiencing intermittent nocturia, waking up 2-3 times a night to urinate. He has been taking finasteride for about a year to manage this issue. He also mentioned that his skin seems a bit yolk spray drier and thinner than usual, and he has noticed that minor cuts and scratches do not heal as quickly as they used to. He has not been experiencing any trouble with depression, and his appetite is good, although not as strong as it used to be. His weight has been stable, and he has gained 2 lbs recently. His blood pressure is perfect, and his BMI is 22.8. * ROS: G eneral/Constitutional: pain o nly [...] have been noted. G enitourinary: Frequent urination o nce a night. M usculoskeletal: Muscle aches d enies. P ainful joints d enies. S ciatica d enies. W eakness d enies. S kin: Itching d enies. R suresh d enies. S kin lesion(s)?denies. N eurologic: Difficulty speaking d enies. D izziness d enies.?Headache d enies. L ow back pain d enies. P sychiatric: Depressed mood w hich is mild. * Medical History: * Surgical History: n egative colonoscopy 2008GI biopsy 04/2019Tonsils removed at 7 years old No history * Hospitalization/Major Diagno stic Procedure: N o history * Family History: F ather: 80 yrs, [...] dditional Findings: Tobacco Non-User A ggressive non-smoker Ramos smith is from [facility] for several years.They have 2 step daughters. 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 He was born in [place]. * Medications: T akingFinasteride 5 MG Tablet 1 tablet Orally Once a day Tadalafil 5 MG Tablet 1 tablet as needed Orally Once a day buPROPion HCl 100 MG Tablet TAKE 1 TABLET BY MOUTH TWICE DAILY Taking Finasteride 5 MG Tablet 1 tablet Orally Once a day Taking Tadalafil 5 MG Tablet 1 tablet as needed Orally Once a day Taking buPROPion HCl 100 MG Tablet TAKE 1 TABLET BY MOUTH TWICE DAILY DiscontinuedTerazosin HCl 2 MG Capsule TAKE 1 CAPSULE BY MOUTH EVERY DAY AT BEDTIME Medication List reviewed and reconciled with the patientDiscontinued Terazosin HCl 2 MG Capsule TAKE 1 CAPSULE BY MOUTH EVERY DAY AT BEDTIME Medication List reviewed and reconciled with the patient * Allergies: A moxicillin: aileen[Allergies Verified] Objective: * Vitals: H t: 68, Wt:150, BMI:22.8, BP:122/80, HR:113, Temp:98.2, Wt-k.04. * P ast Orders: L ab:Testosterone, Free/Total (Order Date - 11/22/2023) (Collection Date & Time - 11/22/2023 11:15 AM) Value Reference Range Testosterone, Total [phone] - ng/dL Testosterone, Free 79.6 35.0-155.0 - pg/mL Lab:Prostate Specific Antige n * Collection Date 11/22/2023 09/12/2023 02/16/2023 Collection Time 11:15 AM 10:51 AM 09:32 AM Order Date 11/22/2023 09/12/2023 02/16/2023 Prostate Specific Antigen 2.95 (Ref Range: <0.05-4.0 ng/mL) 3.09 (Ref Range: <0.05-4.0 ng/mL) 3.19 (Ref Range: <0.05-4.0 ng/mL) * Examination: G eneral Examination: GENERAL APPEARANCE: p leasant, well nourished, well developed, in no acute distress, calm and relaxed, man. HEAD: a traumatic, normocephalic. EYES: e clarence, perrla, anicteric, conjugate. EARS: n ormal. NOSE: s eptum intact. ORAL CAVITY: n ormal, unremarkable. NECK/THYROID: n o jugular venous distention, no carotid bruit, thyroid normal. LYMPH NODES: n o enlarged lymph nodes,spleen normal. SKIN: n o suspicious lesions, anicteric. HEART: n o clicks, gallops, murmurs, or rubs, regular rhythm, S1, S2 normal, no s3, or vascular bruits. LUNGS: c lear to auscultation . BREASTS: no masses palpable bilaterally. ABDOMEN: b owel sounds normal, no ascites, no organomegaly, no mass. RECTAL EXAM: n ot examined. MUSCULOSKELETAL: e xtremities unremarkable, no clubbing, cyanosis or edema, Mild bilateral Dupuytren's contracture of the hands. PERIPHERAL PULSES: n ormal. NEUROLOGIC: a lert and oriented, cranial nerves 2-12 grossly intact, deep tendon reflexes 2+ symmetrical, motor strength normal upper and lower extremities, sensory exam intact. PSYCH: a lert, oriented, Depression resolved. ? Assessment: * Assessment: 1. D epression - F32.9 (Primary) N otes :His bupropion was discontinued. His depression has been addressed and is well controlled. He is able to conduct all of the activities of daily life. 2 . B PH (benign prostatic hyperplasia) - N40.0 N otes :He rises from sleep once or twice a night. He is now under the care of a urologist. He is compliant with all of his medications. 3 . H yperlipidemia, unspecified hyperlipidemia type - E78.5 N otes :Comprehensive blood work is being done periodically. No change in his regimen was made. 4 . E rectile dysfunction - N52.9 N otes :This complaint is well controlled with oral medication. However, he says he hardly ever has a opportunity to use it 5 . P almar fascial fibromatosis [Dupuytren] - M72.0 N otes :He has mild bilateral Dupuytren's contractures but says they do not bother him. He does not wish treatment at this time. Plan: * Treatment: 2. H yperlipidemia, unspecified hyperlipidemia type L AB: PROFILE, FASTING (COMPREHENSIVE METABOLIC) L AB: PSA, TOTAL L AB: CBC WITH AUTO DIFF L AB: Lipid Panel 3. O thers Continue buPROPion HCl Tablet, 100 MG, TAKE 1 TABLET BY MOUTH TWICE DAILY; C ontinue Terazosin HCl Capsule, 2 MG, TAKE 1 CAPSULE BY MOUTH EVERY DAY AT BEDTIME. * Procedure Codes: * Follow Up: A s Scheduled (Reason: OV, Annual Exam) * Images: * Sign off status: Completed true * Provider: Rudy Aranda MD Date: Generated for Reynoldi ng/Dewayne/eTransmitting on: 04/29/2024 03:00 PM EST History and Physical Notes * HPI (History of Present Illness) Category Sub-Category Detail Notes COVID-19 Screening Questions Have you had any new onset fever, chills, cough, congestion, sore throat, shortness of breath, muscle aches?: No Have you been exposed to the virus withi n the last 10 days?: No Have you travelled internationally in [facility] last 10 days?: No Have you been exposed to COVID-19 in the past?: Yes Examination Category Sub-Category Detail Notes General Examination GENERAL APPEARANCE: pleasant , well nourished, well developed, in no acute distress, calm and relaxed, man HEAD: atraumatic, normocep halic EYES: eomi, [...] exam intact SKIN: no suspicious lesion s, anicteric PERIPHERAL PULSES: normal BREASTS: no masses palpable b ilaterally MUSCULOSKELETAL: extremities unremark able, no clubbing, cyanosis or edema, Mild bilateral Dupuytren's contracture of the hands LYMPH NODES: no enlarged lymph no jason,spleen normal RECTAL EXAM: not examined PSYCH: alert, oriented, Dep ression resolved ORAL CAVITY: normal, unremarkable
--- OUTSIDE RECORDS SUMMARY | 2024-08-20 08:30 | XMS_ITS ---
Author Organization Sebastián Aranda III, MD Address [address] [place] [address] Care Team Providers Care Carriage Operator Name Role Phone Dr. Sebastián Aranda III Primary Care Provider Allergies Allergen (clinical drug ingredient) Drug/Non Drug Allergy documented on EMR Reaction Allergy Type Onset Date Status amoxicillin Amoxicillin rash Drug Allergy Act graeme REASON FOR VISIT Deep venous thrombosis Right calf, Depression, Benign prostatic hypertrophy, Hyperlipidemia Medications Medication SIG (Take, Route, Fr equency, Duration) Notes Start Date End Date Status Finasteride 5 MG 1 tablet Orally Once a day Active Tadalafil 5 MG 1 tablet as needed O rally Once a day Active buPROPion HCl 100 MG TAKE 1 TABLET BY [place] TWICE DAILY Active Terazosin HCl 2 MG TAKE 1 CAPSULE BY [facility] EVERY DAY AT BEDTIME Active Social History Tobacco Use: Social History Observation Description Date Details (start date - stop date) Never Smoker NA - NA Sex Assigned At : Social History Observation Description Sex Assigned At Male Tobacco Use/Smoking Question Answer Notes Patient is a nonsmoker Additional Findings: Tobacco Non-User Aggressive non-smoker Problems Problem Type SNOMED Code ICD Code Onset Dates Problem Status W/U Status Risk Notes Problem 860228661919474 Acute deep vein thrombosis (DVT) of right popliteal vein (I82.431) Active confirmed A thrombophilia workup is Negative. He is tolerating the apixaban well. A follow-up for 4 weeks was arranged. Problem 290309583 Anticoagulated (Z79.01) Active confirmed There is no contraindication anticoagulation which will be for approximately 4 months. Problem 385564136712112 Acute deep vein thrombosis (DVT) of popliteal vein of right lower extremity (I82.431) Active confirmed There is no contraindication to anticoagulation which is ongoing. The thrombophilia evaluation is pending. Vital Signs Temperature 98.2 degrees Fahrenheit 08/21/19 25 Blood pressure systolic 130 mm Hg 08/21/19 25 Blood pressure diastolic 79 mm Hg 025 Heart Rate 77 /min 08/20/2024 Height 68 in 08/20/2024 Weight 148 lbs 08/20/2024 BMI 22.5 kg/m2 08/20/2024 Encounters Encounter Location Date Provider Diagnosis Sebastián Aranda III, MD [address] [place] [address] [place] [address] 08/20/2024 Sebastián Aranda BPH (benign prostati c hyperplasia) N40.0 ; Acute deep vein thrombosis (DVT) of popliteal vein of right lower extremity I82.431 ; Depression F32.9 ; Palmar fascial fibromatosis [Dupuytren] M72.0 ; Hyperlipidemia, unspecified hyperlipidemia type E78.5 and Anticoagulated Z79.01 Assessments Encounter Date Diagnosis (ICD Code) Assessment Notes T reatment Notes Treatment Clinical Notes 08/20/2024 BPH (benign prostatic hyperplasia) (ICD-10 - N40.0) He rises from sleep once or twice a night. He is now under the care of a urologist. He is compliant with all of his medications. 08/20/2024 Acute deep vein thrombosis (DVT) of popliteal vein of right lower extremity (ICD-10 - I82.431) There is no contraindication to anticoagulation which is ongoing. The thrombophilia evaluation is pending. 08/20/2024 Depression (ICD-10 - F32.9) His bupropion was discontinued. His depression has been addressed and is well controlled. He is able to conduct all of the activities of daily life. 08/20/2024 Palmar fascial fibromatosis [Dupuytren] (ICD-10 - M72.0) He has mild bilateral Dupuytren's contractures but says they do not bother him. He does not wish treatment at this time. 08/20/2024 Hyperlipidemia, unspecified hyperlipidemia type (ICD-10 - E78.5) Comprehensive blood work is being done periodically. No change in his regimen was made. 08/20/2024 Anticoagulated (ICD-10 - Z79.01) There is no contraindication anticoagulation which will be for approximately 4 months. Plan Of Treatment Medication Medication Name Sig Start Date Stop Date Notes Finasteride 5 MG 1 tablet Orally Once a day Tadalafil 5 MG 1 tablet as needed Orally Once a day buPROPion HCl 100 MG TAKE 1 TABLET BY MOUTH TWICE DAILY Terazosin HCl 2 MG TAKE 1 CAPSULE BY AR UT EVERY DAY AT BEDTIME Pending Test Test Name Order Date LEG RT VENOUS DOPPLER 08/20/2024 Next Appt Details Follow Up: TV after Ultrasou nd at , Reason: TV Provider Name:Sebastián Aranda , 03/10/2025 09:45:00 AM, [address] [place] [address] [address], [place], [phone], Provider Name:Sebastián Aranda , 09/25/2025 10:00:00 AM, [address] [place] [address] [address], [place], [address], Progress Notes * DILEEPOg RIGGINSDOB: 6 (68 yo M)Acc No.[id number]:08/20/2024 Patient: Rubi CORTEZOg Provider: Rudy Aranda MD :1955 A ge:68 Y S ex:Male Date:08/20/2024 Address:[address] [place] [address] [id number] Subjective: * Chief Complaints: * D eep venous thrombosis Right calfDepressionBenign prostatic hypertrophyHyperlipidemia * HPI: C OVID-19 Screening: Ramos smith recently went on a vacation trip to [facility] and while on the extended plane trip home a week ago he developed pain in his right calf musculature which has failed to resolve. He was sent today for ultrasound of the right calf which was positive for deep venous thrombosis. He is now on Eliquis. There was no evidence of embolization. He complains of nocturia once or twice a night depending upon fluid intake. He is taking finasteride now for prostatism. He says his depression is very minimal.A thrombophilia evaluation is pending. He has no contraindication anticoagulation. He stated he had no family history of venous or arterial thrombosis. Questions H ave you had any new onset fever, chills, cough, congestion, sore throat, shortness of breath, muscle aches? N o * ROS: G eneral/Constitutional: pain R ight calf muscle. C hills d enies. F atigue a dmits. F ever d enies. E [...] nce a night. M usculoskeletal: Muscle aches R ight gastrocnemius. P ainful joints d enies. S ciatica [...] History: T obacco Use: T obacco Use/Smoking Gabo ramirez is a n onsmoker A dditional Findings: Tobacco Non-User A ggressive non-smoker Ramos smith is from [facility] for several years.They have 2 step daughters. 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 * Medications: T akingbuPROPion HCl 100 MG Tablet TAKE 1 TABLET BY MOUTH TWICE DAILY Terazosin HCl 2 MG Capsule TAKE 1 CAPSULE BY MOUTH EVERY DAY AT BEDTIME Finasteride 5 MG Tablet 1 tablet Orally Once a day Tadalafil 5 MG Tablet 1 tablet as needed Orally Once a day Medication List reviewed and reconciled with the patientTaking buPROPion HCl 100 MG Tablet TAKE 1 TABLET BY MOUTH TWICE DAILY Taking Terazosin HCl 2 MG Capsule TAKE 1 CAPSULE BY MOUTH EVERY DAY AT BEDTIME Taking Finasteride 5 MG Tablet 1 tablet Orally Once a day Taking Tadalafil 5 MG Tablet 1 tablet as needed Orally Once a day Medication List reviewed and reconciled with the patient * Allergies: A ashley gallagher[Allergies Verified] Objective: * Vitals: H t: 68, Wt:148, BMI:22.5, BP:130/79, HR:77, Temp:98.2, Wt-k.13. * P ast Orders: Lab:Prostate Specific Antige n * Collection Date 08/17/2024 11/22/2023 09/12/2023 Collection Time 08:26 AM 11:15 AM 10:51 AM Order Date 08/17/2024 11/22/2023 09/12/2023 Prostate Specific Antigen 4.48 H (Ref Range: <0.05-4.0 ng/mL) 2.95 (Ref Range: <0.05-4.0 ng/mL) 3.09 (Ref Range: <0.05-4.0 ng/mL) * Examination: G [...] unremarkable, no clubbing, cyanosis or edema, Mild pain to palpation of the popliteal space on the right leg, left calf muscle is unremarkable without edema, Unchanged mild Dupuytren's contracture both hands. PERIPHERAL PULSES: n ormal. NEUROLOGIC: a lert and oriented, cranial nerves 2-12 grossly intact, deep tendon reflexes 2+ symmetrical, motor strength normal upper and lower extremities, sensory exam intact. PSYCH: a lert, oriented. Assessment: * Assessment: 1. A cute deep vein thrombosis (DVT) of popliteal vein of right lower extremity - I82.431 (Primary) N otes :There is no contraindication to anticoagulation which is ongoing. The thrombophilia evaluation is pending. 2 . B PH (benign prostatic hyperplasia) - N40.0 N otes :He rises from sleep once or twice a night. He is now under the care of a urologist. He is compliant with all of his medications. 3 . D epression - F32.9 N otes :His bupropion was discontinued. His depression has been addressed and is well controlled. He is able to conduct all of the activities of daily life. 4 . P almar fascial fibromatosis [Dupuytren] - M72.0 N otes :He has mild bilateral Dupuytren's contractures but says they do not bother him. He does not wish treatment at this time. 5 . H yperlipidemia, unspecified hyperlipidemia type - E78.5 N otes :Comprehensive blood work is being done periodically. No change in his regimen was made. 6 . A nticoagulated - Z79.01 N otes :There is no contraindication anticoagulation which will be for approximately 4 months. Plan: * Treatment: 2. O thers Continue buPROPion HCl Tablet, 100 MG, TAKE 1 TABLET BY MOUTH TWICE DAILY; C ontinue Terazosin HCl Capsule, 2 MG, TAKE 1 CAPSULE BY MOUTH EVERY DAY AT BEDTIME. * Imaging: * I maging: US LEG RT VENOUS DOPPLER * Procedure Codes: * Follow Up: T V after Ultrasound at (Reason: TV) * Images: * Sign off status: Completed true * Provider: Rudy Aranda MD Date: 0 08/20/2024 Generated for Reynoldi anamaria/Dewayne/Corinnesmitting on: 1 04/29/2024 03:00 PM EST History and Physical Notes * HPI (History of Present Illness) Category Sub-Category Detail Notes COVID-19 Screening Questions Have you had any new onset fever, chills, cough, congestion, sore throat, shortness of breath, muscle aches?: No Examination Category Sub-Category Detail Notes General Examination [...] able, no clubbing, cyanosis or edema, Mild pain to palpation of the popliteal space on the right leg, left calf muscle is unremarkable without edema, Unchanged mild Dupuytren's contracture both hands LYMPH NODES: no enlarged lymph no jason,spleen normal RECTAL EXAM: not examined PSYCH: alert, oriented ORAL CAVITY: normal, unremarkable
--- OUTSIDE RECORDS SUMMARY | 2024-08-21 03:57 | XMS_ITS ---
Author Organization Sebastián Aranda III, MD Address [address] [place] [address] Care Team Providers Care Electrical Service Technician Name Role Phone Dr. Sebastián Aranda III Primary Care Provider REASON FOR VISIT U/S showed clot in leg Social History Sex Assigned At : Social History Observation Description Sex Assigned At Male Encounters Encounter Location Date Provider Diagnosis Sebastián Aranda III, MD [address] [place] [address] [place] [address] 08/21/2024 Sebastián Aranda Plan Of Treatment Next Appt Details Provider Name:Sebastián Aranda , 03/10/2025 09:45:00 AM, [address] [place] [address] [place], [address], Provider Name:Sebastián Aranda , 09/25/2025 10:00:00 AM, [address] [place] [address] [place], [address], Progress Notes * Og LOBATODOB: 6 (68 yo M)Acc No.[id number]:08/21/2024 Patient: Rubi CORTEZOg :1955 A ge:68 Y S ex:Male Address:[address] [place] [phone] * true * Date: Generated for Donta conrad/Dewayne/Cristofer on: 04/29/2024 03:00 PM EST
--- OUTSIDE RECORDS SUMMARY | 2024-08-23 05:15 | XMS_ITS ---
Author Organization Sebastián Aranda III, MD Address [address] [place] [address] Care Team Providers Care Compact Assembler Name Role Phone Dr. Sebastián Aranda III Primary Care Provider Allergies Allergen (clinical drug ingredient) Drug/Non Drug Allergy documented on EMR Reaction Allergy Type Onset Date Status amoxicillin Amoxicillin rash Drug Allergy Act graeme REASON FOR VISIT DVT Right popliteal vein, depression, Benign prostatic hypertrophy, Hyperlipidemia Medications Medication SIG (Take, Route, Fr equency, Duration) Notes Start Date End Date Status Finasteride 5 MG 1 tablet Orally Once a day Active Tadalafil 5 MG 1 tablet as needed O rally Once a day Active Eliquis 5 MG as directed Orally twice a day 2024 Active Terazosin HCl 2 MG TAKE [address] [facility] EVERY DAY AT BEDTIME Active Apixaban 5 MG one tablet Orally tw ice a day for 30 days 08/23/2024 Active buPROPion HCl 100 MG TAKE [address] [facility] TWICE DAILY Active Social History Tobacco Use: Social History Observation Description Date Details (start date - stop date) Never Smoker NA - NA Sex Assigned At : Social History Observation Description Sex Assigned At Male Tobacco Use/Smoking Question Answer Notes Patient is a nonsmoker Additional Findings: Tobacco Non-User Aggressive non-smoker Vital Signs Temperature 97.7 degrees Fahrenheit 08/24/19 25 Blood pressure systolic 127 mm Hg 08/24/19 25 Blood pressure diastolic 74 mm Hg 025 Heart Rate 78 /min 08/23/2024 Height 68 in 08/23/2024 Weight 149 lbs 08/23/2024 BMI 22.65 kg/m2 08/23/2024 Encounters Encounter Location Date Provider Diagnosis Sebastián Aranda III, MD [address] [place] [address] [place] [address] 08/23/2024 Sebastián Aranda BPH (benign prostati c hyperplasia) N40.0 ; Acute deep vein thrombosis (DVT) of right popliteal vein I82.431 ; Depression F32.9 ; Hyperlipidemia, unspecified hyperlipidemia type E78.5 and Palmar fascial fibromatosis [Dupuytren] M72.0 Assessments Encounter Date Diagnosis (ICD Code) Assessment Notes Treat ment Notes Treatment Clinical Notes 08/23/2024 BPH (benign prostati c hyperplasia) (ICD-10 - N40.0) He rises from sleep once or twice a night. He is now under the care of a urologist. He is compliant with all of his medications. 08/23/2024 Acute deep vein thrombosis (DVT) of right popliteal vein (ICD-10 - I82.431) A thrombophilia workup is pending. He is tolerating the apixaban well. A follow-up for 4 weeks was arranged. 08/23/2024 Depression (ICD-10 - F32.9) His bupropion was discontinued. His depression has been addressed and is well controlled. He is able to conduct all of the activities of daily life. 08/23/2024 Hyperlipidemia, unspecified hyperlipidemia type (ICD-10 - E78.5) Comprehensive blood work is being done periodically. No change in his regimen was made. 08/23/2024 Palmar fascial fibromatosis [Dupuytren] (ICD-10 - M72.0) He has mild bilateral Dupuytren's contractures but says they do not bother him. He does not wish treatment at this time. Plan Of Treatment Medication Medication Name Sig Start Date Stop Date Notes Finasteride 5 MG 1 tablet Orally Once a day Tadalafil 5 MG 1 tablet as needed Orally Once a day Eliquis 5 MG as directed Orally twice a day 08/23/2024 Terazosin HCl 2 MG TAKE [address] [facility] EVERY DAY AT BEDTIME Apixaban 5 MG one tablet Orally tw ice a day for 30 days 08/23/2024 buPROPion HCl 100 MG TAKE 1 TABLET BY MOUTH TWICE DAILY Next Appt Details Follow Up: As Scheduled, Mayra son: Annual Exam Provider Name:Sebastián Lakhanine , 03/10/2025 09:45:00 AM, [address] [facility] [address], [place], [address], Provider Name:Sebastián Aranda , 09/25/2025 10:00:00 AM, [address] [place] [address] [address], [place], [address], Progress Notes * RENOOgDOB: (68 yo M)Acc No.[id number]:08/23/2024 Progress Notes Patient: Rubi CORTEZ Jimbotanvi Provider: Rudy Aranda MD :1955 A ge:68 Y S ex:Male Date:08/23/2024 Address:[address] [place] [id number] Subjective: * Chief Complaints: * D VT Right popliteal veinDepressionBenign prostatic hypertrophyHyperlipidemia * HPI: C OVID-19 Screening: On his last visit he complained of pain in his right calf muscle. An ultrasound was ordered and showed a DVT in his right popliteal vein. He was begun on 5 mg of apex and then twice a day. He has had no bleeding and no side effects from this medication. He has been compliant with this medication. A thrombophilia eevaluation was ordered prior to the onset of anticoagulation and those values are pending at this time. He will continue on anticoagulation for between 4 and 6 months depending upon his course. He will notify me of any bleeding and he will avoid aspirin. Questions H ave you had any new onset fever, chills, cough, congestion, sore throat, shortness of breath, muscle aches? N o * ROS: G eneral/Constitutional: pain P osterior right knee and right calf muscle. C hills d enies. F atigue a dmits. F ever d enies. E NT: Decreased hearing d enies. R espiratory: Cough d enies. C ardiovascular: Chest pain with exertion d enies. D yspnea on exertion?denies. S hortness of breath d enies. G astrointestinal: Constipation d enies. D ecreased appetite d enies.?Diarrhea d enies. H eartburn d enies. N ausea d enies. R ectal bleeding?denies. V omiting d enies. H ematology: bruising d enies. p etechiae d enies. S wollen glands n one have been noted. G enitourinary: Frequent urination o nce a night. M usculoskeletal: Muscle aches R ight calf muscle. P ainful joints d enies. S ciatica d enies. W eakness d enies. S kin: Itching d enies. R suresh d enies. S kin lesion(s)?denies. N eurologic: Difficulty speaking d enies. D izziness d enies.?Headache d enies. L ow back pain d enies. P sychiatric: Depressed mood d enies. * Medical History: * Surgical History: n [...] dditional Findings: Tobacco Non-User A ggressive non-smoker * Medications: T akingEliquis 5 MG Tablet as directed Orally twice a day Taking Eliquis 5 MG Tablet as directed Orally twice a day UnknownbuPROPion HCl 100 MG Tablet TAKE 1 TABLET BY MOUTH TWICE DAILY Terazosin HCl 2 MG Capsule TAKE 1 CAPSULE BY MOUTH EVERY DAY AT BEDTIME Finasteride 5 MG Tablet 1 tablet Orally Once a day Tadalafil 5 MG Tablet 1 tablet as needed Orally Once a day Medication List reviewed and reconciled with the patientUnknown buPROPion HCl 100 MG Tablet TAKE 1 TABLET BY MOUTH TWICE DAILY Unknown Terazosin HCl 2 MG Capsule TAKE 1 CAPSULE BY MOUTH EVERY DAY AT BEDTIME Unknown Finasteride 5 MG Tablet 1 tablet Orally Once a day Unknown Tadalafil 5 MG Tablet 1 tablet as needed Orally Once a day Medication List reviewed and reconciled with the patient * Allergies: A moxicillin: aileen[Allergies Verified] Objective: * Vitals: H t: 68, Wt:149, BMI:22.65, BP:127/74, HR:78, Temp:97.7, Wt-k.59. * P ast Orders: Lab:Prostate Specific Antige [...] xtremities unremarkable, no clubbing, cyanosis or edema, There is no swelling in the right leg but there is tenderness to palpation over the popliteal fossa. PERIPHERAL PULSES: n ormal. NEUROLOGIC: a lert and oriented, cranial nerves 2-12 grossly intact, deep tendon reflexes 2+ symmetrical, motor strength normal upper and lower extremities, sensory exam intact. PSYCH: a lert, oriented. Assessment: * Assessment: 1. A cute deep vein thrombosis (DVT) of right popliteal vein - I82.431 (Primary) ?Notes :A thrombophilia workup is pending. He is tolerating the apixaban well. A follow-up for 4 weeks was arranged. 2 . B PH (benign prostatic hyperplasia) [...] the activities of daily life. 4 . H yperlipidemia, unspecified hyperlipidemia type - E78.5 N otes :Comprehensive blood work is being done periodically. No change in his regimen was made. 5 . P almar fascial fibromatosis [Dupuytren] - M72.0 N otes :He has mild bilateral Dupuytren's contractures but says they do not bother him. He does not wish treatment at this time. Plan: * Treatment: 2. B PH (benign prostatic hyperplasia) Continue Finasteride Tablet, 5 MG, 1 tablet, Orally, Once a day; C ontinue Tadalafil Tablet, 5 MG, 1 tablet as needed, Orally, Once a day; S tart Apixaban Tablet, 5 MG, one tablet, Orally, twice a day, 30 days, 60, Refills 5. 3. O thers Continue buPROPion HCl Tablet, 100 MG, TAKE 1 TABLET BY MOUTH TWICE DAILY; C ontinue Terazosin HCl Capsule, 2 MG, TAKE 1 CAPSULE BY MOUTH EVERY DAY AT BEDTIME. * Procedure Codes: * Follow Up: A s Scheduled (Reason: Annual Exam) * Images: * Sign off status: Completed true * Provider: Rudy Aranda MD Date: 0 08/23/2024 Generated for Donta conrad/Dewayne/Taviaitting on: 1 04/29/2024 03:01 PM EST History [...] unremark able, no clubbing, cyanosis or edema, There is no swelling in the right leg but there is tenderness to palpation over the popliteal fossa LYMPH NODES: no enlarged lymph no jason,spleen normal RECTAL EXAM: not examined PSYCH: alert, oriented ORAL CAVITY: normal, unremarkable
--- OUTSIDE RECORDS SUMMARY | 2024-08-23 12:00 | XMS_ITS ---
Author Organization Sebastián Aranda III, MD Address [address] [place] [address] Care Team Providers Care Hand Lens Polisher Name Role Phone Dr. Sebastián Aranda III Primary Care Provider Allergies Allergen (clinical drug ingredient) Drug/Non Drug Allergy documented on EMR Reaction Allergy Type Onset Date Status amoxicillin Amoxicillin rash Drug Allergy Act graeme REASON FOR VISIT Telehealth Medications Medication SIG (Take, Route, Fr equency, Duration) Notes Start Date End Date Status Finasteride 5 MG 1 tablet Orally Once a day Active Tadalafil 5 MG 1 tablet as needed O rally Once a day Active buPROPion HCl 100 MG TAKE 1 TABLET BY MO [place] TWICE DAILY Active Terazosin HCl 2 MG TAKE 1 CAPSULE BY MO [facility] EVERY DAY AT BEDTIME Active Social History Sex Assigned At : Social History Observation Description Sex Assigned At Male Encounters Encounter Location Date Provider Diagnosis Sebastián Aranda III, MD [address] [place] [address] [place] [address] 08/23/2024 Sebastián Aranda Plan Of Treatment Medication Medication Name Sig Start Date Stop Date Notes Finasteride 5 MG 1 tablet Orally Once a day Tadalafil 5 MG 1 tablet as needed Orally Once a day buPROPion HCl 100 MG TAKE 1 TABLET BY MOUTH TWICE DAILY Terazosin HCl 2 MG TAKE 1 CAPSULE BY MO UT EVERY DAY AT BEDTIME Next Appt Details Provider Name:Sebastián Aranda , 03/10/2025 09:45:00 AM, [address] [facility] [address], [place], [address], Provider Name:Sebastián Aranda , 09/25/2025 10:00:00 AM, [address] [place] [address] [address], [place], [address], Progress Notes * Og LOBATODOB: 6 (69 yo M)Acc No.[id number]:08/23/2024 Patient: Og GO Provider: Rudy Aranda MD :1955 A ge:68 Y S ex:Male Date:08/23/2024 Address:[address] [place], [place] [id number] Subjective: * Chief Complaints: * 1 . Telehealth. * Medical History: S hingles age 10, Depression, Dupuyten's contractures, Allergic amoxicillin, ED, BPH. * Surgical History: n egative colonoscopy 2008, GI biopsy 04/2019, Tonsils removed at 7 years old , No history . * Hospitalization/Major Diagno stic Procedure: N o history . * Family History: F ather: 80 yrs, [...] is Sebastián and sister Emerald Gastelum. * Medications: T aking buPROPion HCl 100 MG Tablet TAKE 1 [...] with the patient * Allergies: A moxicillin: rash. Objective: * Vitals: Assessment: Plan: * Treatment: * Images: * The named appointment provid er may or may not be the originator of this progress note, and it is not deemed complete until electronically signed by the appointment provider. Sign off status: Pending * Provider: Rudy Aranda MD Date: 0 08/23/2024 Generated for Donta conrad/Dewayne/Cristofer on: 04/29/2024 03:00 PM EST
--- OUTSIDE RECORDS SUMMARY | 2024-09-24 05:00 | XMS_ITS ---
Author Organization Sebastián Aranda III, MD Address [address] [place] [address] Care Team Providers Care Mail Handlers Supervisor Name Role Phone Dr. Sebastián Aranda III Primary Care Provider Allergies Allergen (clinical drug ingredient) Drug/Non Drug Allergy documented on EMR Reaction Allergy Type Onset Date Status No Known Food Allergy Unknown Drug Allergy Active amoxicillin Amoxicillin rash Drug Allergy Act graeme Results Component Value Reference Range Notes URINE DIP STICK Reviewed date:09/24/2024 10:24:05 AM Interpretation: Performing Lab: Notes/Report: SG 1.025 1.005 - 1.025 pH 5.0 5.0 - 9.0 CIELO 15 (+) (-) Negative - NIT Negative Negative - PRO 15 Negative - Trace GLU Negative Negative - KET 5 Negative - UBG 0.2 0.1 - 1.8 STEF Negative 0.2 - 1.3 BLD Negative Negative - REASON FOR VISIT Annual Exam Medications Medication SIG (Take, Route, Fr equency, Duration) Notes Start Date End Date Status Eliquis 5 MG as directed Orally twice a day 2024 Active Tadalafil 5 MG 1 tablet as needed O rally Once a day Active Finasteride 5 MG 1 tablet Orally Once a day Active Apixaban 5 MG one tablet Orally twice a day 2024 Active Terazosin HCl 2 MG TAKE 1 CAPSULE BY MO UT EVERY DAY AT BEDTIME Active buPROPion HCl 100 MG TAKE 1 TABLET BY MO UT TWICE DAILY Active Social History Tobacco Use: Social History Observation Description Date Details (start date - stop date) Never Smoker NA - NA Sex Assigned At : Social History Observation Description Sex Assigned At Male Tobacco Control (Standard) Question Answer Notes Tobacco use: Nonsmoker Additional Findings: Tobacco non-user Aggressive nonsmoker AUDIT-C (Standard) Question Answer Notes Did you have a drink contain ing alcohol in the past year? Yes How often did you have six o r more drinks on one occasion in the past year? 2 to 4 times a month (2 points) How many drinks did you have on a typical day when you were drinking in the past year? 1 or 2 drinks (0 point) How often did you have a dri nk containing alcohol in the past year? Never (0 point) Points 2 Interpretation Negative Vital Signs Temperature 98.2 degrees Fahrenheit 09/25/19 25 Blood pressure systolic 113 mm Hg 09/25/19 25 Blood pressure diastolic 88 mm Hg 025 Heart Rate 80 /min 09/24/2024 Height 68 in 09/24/2024 Weight 148 lbs 09/24/2024 BMI 22.5 kg/m2 09/24/2024 Encounters Encounter Location Date Provider Diagnosis Sebastián Aranda III, MD [address] [place] [address] [place] [id number] 09/24/2024 Sebastián Aranda Acute deep vein thrombosis (DVT) of right popliteal vein I82.431 ; BPH (benign prostatic hyperplasia) N40.0 ; Depression F32.9 ; Anticoagulated Z79.01 ; 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 He is tolerating the apixaban well. A follow-up for 4 weeks was arranged. 09/24/2024 BPH (benign prostatic hyperplasia) (ICD-10 - N40.0) He rises from sleep once or twice a night. He is now under the care of a urologist. He is compliant with all of his medications. 09/24/2024 Depression (ICD-10 - F32.9) His bupropion was discontinued. His depression has been addressed and is well controlled. He is able to conduct all of the activities of daily life. 09/24/2024 Anticoagulated (ICD-10 - Z79.01) There is no contraindication anticoagulation which will be for approximately 4 months. 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 He does not wish treatment at this time. 09/24/2024 Hyperlipidemia, unspecified hyperlipidemia type (ICD-10 - E78.5) Comprehensive blood work is being done periodically. No change in his regimen was made. Plan Of Treatment Medication Medication Name Sig Start Date Stop Date Notes Eliquis 5 MG as directed Orally twice a day 08/23/2024 Tadalafil 5 MG 1 tablet as needed Orally Once a day Finasteride 5 MG 1 tablet Orally Once a day Apixaban 5 MG one tablet Orally twice a day 08/23/2024 Terazosin HCl 2 MG TAKE 1 CAPSULE BY [facility] EVERY DAY AT BEDTIME buPROPion HCl 100 MG TAKE 1 TABLET BY MOUTH TWICE DAILY Next Appt Details Follow Up: 3 Months, Reason: OV Provider Name:Sebastián Aranda , 03/10/2025 09:45:00 AM, [address] [place] [address] [address], [place], [phone], Provider Name:Sebastián Aranda , 09/25/2025 10:00:00 AM, [address] [place] [address] [address], [place], [phone], Progress Notes * DILEEPOg RIGGINSDOB: [birth year] (68 yo M)Acc No.[id number]:09/24/2024 Progress Notes Patient: Og GO Provider: Rudy Aranda MD :1955 A ge:68 Y S ex:Male Date:09/24/2024 Address:[address] [place] [address], [place], [id number] Subjective: * Chief Complaints: * A nnual Exam * HPI: D epression Screening: He returns to the office for his annual examination at the age of 68. He feels healthy and well. The pain in his left calf has diminished. He is compliant with his anticoagulation. We have reviewed his thrombophilia workup today. There was no positive test. He will be able to stop the and between 4 and 6 months from the diagnosis of the DVT. PHQ-9 L ittle interest or pleasure in doing things?More than half the days F eeling down, depressed, or hopeless M ore than half the days T rouble falling or staying asleep, or sleeping too much M ore than half the days F eeling tired or having little energy M ore than half the days P oor appetite or overeating M ore than half the days F eeling bad about yourself or that you are a failure, or have let yourself or your family down M ore than half the days T rouble concentrating on things, such as reading the newspaper or watching television M ore than half the days M oving or speaking so slowly that other people could have noticed; or the opposite, being so fidgety or restless that you have been moving around a lot more than usual N ot at all T houghts that you would be better off or of hurting yourself in some way N ot at all T otal Score 1 4 I nterpretation M oderate Depression C OVID-19 Screening: Questions H ave you had any new onset fever, chills, cough, congestion, sore throat, shortness of breath, muscle aches? N o S CARLITA Questions: SDOH Questions I n [...] History: * Surgical History: n egative colonoscopy biopsy 04/2019Tonsils removed at 7 years old No history * Hospitalization/Major Diagno stic Procedure: N o history * Family History: F ather: 80 yrs, chronic obstructive pulmonary disease. M other: 89 yrs, CVA by CT, dementia. P aternal Grand Father: . P aternal Grand Mother: , cardiac disease. M aternal Grand Father: , diabetes mellitus, myocardial infarction. M aternal Grand Mother: , car accident. 1 brother(s) , 1 sister(s) - healthy. . His brother is Sebastián and sister Emerald Gastelum. * Social History: T obacco Use: T obacco Control (Standard) T obacco use: N onsmoker A dditional Findings: Tobacco non-user A ggressive nonsmoker D rugs/Alcohol: D rugs H ave you used drugs other than those for medical reasons in the past 12 months? N o D rug/Alcohol: A MEG-C (Standard) D id you have a drink containing alcohol in the past year? Y es H ow often did you have six or more drinks on one occasion in the past year? 2 to 4 times a month (2 points) H ow many drinks did you have on a typical day when you were drinking in the past year? 1 or 2 drinks (0 point) H ow often did you have a drink containing alcohol in the past year? N ever (0 point) P oints 2 I nterpretation N egative H sarah is from [facility] for several years.They have 2 step daughters. 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 He was born in [place]. * Medications: T akingbuPROPion HCl 100 MG Tablet TAKE 1 TABLET BY MOUTH TWICE DAILY Terazosin HCl 2 MG Capsule TAKE 1 CAPSULE BY MOUTH EVERY DAY AT BEDTIME Finasteride 5 MG Tablet 1 tablet Orally Once a day Tadalafil 5 MG Tablet 1 tablet as needed Orally Once a day Eliquis 5 MG Tablet as directed Orally twice a day Taking buPROPion HCl 100 MG Tablet TAKE 1 TABLET BY MOUTH TWICE DAILY Taking Terazosin HCl 2 MG Capsule TAKE 1 CAPSULE BY MOUTH EVERY DAY AT BEDTIME Taking Finasteride 5 MG Tablet 1 tablet Orally Once a day Taking Tadalafil 5 MG Tablet 1 tablet as needed Orally Once a day Taking Eliquis 5 MG Tablet as directed Orally twice a day DiscontinuedApixaban 5 MG Tablet one tablet Orally twice a day Medication List reviewed and reconciled with the patientDiscontinued Apixaban 5 MG Tablet one tablet Orally twice a day Medication List reviewed and reconciled with the patient * Allergies: A moxicillin: rashNo Known Food Allergyno[Allergies Verified] Objective: * Vitals: H t: 68, Wt:148, BMI:22.5, BP:113/88, HR:80, Temp:98.2, Wt-k.13. * P ast Orders: Lab:Prostate Specific Antige n * Collection Date 08/17/2024 11/22/2023 09/12/2023 Collection Time 08:26 AM 11:15 AM 10:51 AM Order Date 08/17/2024 11/22/2023 09/12/2023 Prostate Specific Antigen 4.48 H (Ref Range: <0.05-4.0 ng/mL) 2.95 (Ref Range: <0.05-4.0 ng/mL) 3.09 (Ref Range: <0.05-4.0 ng/mL) ???Lab:Factor V Leiden (Order Date - 08/21/2024) (Collection Date & Time - 08/21/2024 09:58 AM)?ValueReference Range?Factor V LeidenNEGATIVE- ?Factor V Leiden InterpretationSee Below- ???Lab:Partial Thromboplastin Time (Order Date - 08/21/2024) (Collection Date & Time - 08/21/2024 09:57 AM)?ValueReference Range?Partial Thromboplastin Time30.026.0-36.8 - SEC ???Lab:Prothrombin 26535C (Order Date - 08/21/2024) (Collection Date & Time - 08/21/2024 09:58 AM)?ValueReference Range?Prothrombin 65547M NEGATIVE-?[id number] Below- ???Lab:Protein C Activity Reflex Ag (Order Date - 08/21/2024) (Collection Date & Time - 9:57 AM)?ValueReference Range?Protein C Activity 60600-013 - % normal?Protein C Antigen AddTNP-?Protein C Antigen TNP- ???Lab:Lupus Anticoagulant Panel (Order Date - 08/21/2024) (Collection Date & Time - 08/21/2024 09:57 AM)?ValueReference Range?Lupus Interpretationsee note-?PTT (LAC) Byqcsp18<=40 - sec?DRVVT Screen 31<=45 - sec?DRVVT ConfirmationTNP-?DRVVT 1:1 MixTNP-?DRVVT 1:1 Mix InterpretationTNP-?Hexagonal Phase NeutralizationTNP- ?Thrombin Clotting TimeTNP- ???Lab:Protein S Activity reflex Ag (Order Date - 08/21/2024) (Collection Date & Time - 9:57 AM)?ValueReference Range?Protein S Activity rflx Tot&Je9454-322 - % normal?Protein S Total (Antigenic)TNP- ?Protein S Free AntigenTNP- * Lab:Comprehensive Met. Panel * Collection Date 08/21/2024 09/11/2021 05/26/2020 Collection Time 09:57 AM 09:10 AM 01:40 PM Order Date 08/21/2024 09/11/2021 05/26/2020 Sodium 138 (Ref Range: 135-145 mmol/L) 139 (Ref Range: 135-145 mmol/L) 144 (Ref Range: 135-145 mmol/L) Bilirubin Total 0.5 (Ref Range: 0.0-1.0 mg/dL) 0.6 (Ref Range: 0.0-1.0 mg/dL) 0.8 (Ref Range: 0.0-1.0 mg/dL) Aspartate Amino Transferase 24 (Ref Range: 5-37 U/L) 14 (Ref Range: 5-37 U/L) 14 (Ref Range: 5-37 U/L) Alanine Aminotransferase 35 (Ref Range: 0-40 U/L) 11 (Ref Range: 0-40 U/L) 12 (Ref Range: 0-40 U/L) Total Protein 6.3 L (Ref Range: 6.5-8.0 g/dL) 6.1 L (Ref Range: 6.5-8.0 g/dL) 6.2 L (Ref Range: 6.5-8.0 g/dL) Albumin Level 3.9 (Ref Range: 3.5-5.0 g/dL) 3.9 (Ref Range: 3.5-5.0 g/dL) 3.9 (Ref Range: 3.5-5.0 g/dL) Alkaline Phosphatase 70 (Ref Range: 39-117 U/L) 63 (Ref Range: 39-117 U/L) 93 (Ref Range: 39-117 U/L) Potassium 4.5 (Ref Range: 3.3-5.1 mmol/L) 4.1 (Ref Range: 3.3-5.1 mmol/L) 5.0 (Ref Range: 3.3-5.1 mmol/L) Chloride 104 (Ref Range: 96-108 mmol/L) 106 (Ref Range: 96-108 mmol/L) 106 (Ref Range: 96-108 mmol/L) Carbon Dioxide 29 (Ref Range: 22-29 mmol/L) 26 (Ref Range: 22-29 mmol/L) 31 H (Ref Range: 22-29 mmol/L) Anion Gap 10 L (Ref Range: 12-20) 11 L (Ref Range: 12-20) 12 (Ref Range: 12-20) Blood Urea Nitrogen 10 (Ref Range: 9-16 mg/dL) 11 (Ref Range: 9-16 mg/dL) 13 (Ref Range: 9-16 mg/dL) Creatinine 0.93 (Ref Range: 0.5-1.4 mg/dL) 1.08 (Ref Range: 0.5-1.4 mg/dL) 0.99 (Ref Range: 0.5-1.4 mg/dL) Estimated Glomerular Filt Rate > 60 > 60 > 60 Glucose Random 85 (Ref Range: 60-115 mg/dL) 86 (Ref Range: 60-115 mg/dL) 89 (Ref Range: 60-115 mg/dL) Calcium 9.0 (Ref Range: 8.4-10.2 mg/dL) 9.2 (Ref Range: 8.4-10.2 mg/dL) 8.9 (Ref Range: 8.4-10.2 mg/dL) Creatinine Clr Calc Pharmacy 71.6 NR NR ???Lab:Anti-Thrombin III Activity (Order Date - 08/21/2024) (Collection Date & Time - 08/21/2024 09:58 AM)?ValueReference Range?Anti-Thrombin III [id number] - % normal * Lab:Complete Blood Count Aut o Diff * Collection Date 09/20/2024 08/21/2024 09/12/2023 Collection Time 09:07 AM 09:58 AM 10:51 AM Order Date 09/20/2024 08/21/2024 09/12/2023 White Blood Count 5.5 (Ref Range: 4.8-10.8 X10*3/uL) 6.3 (Ref Range: 4.8-10.8 X10*3/uL) 6.5 (Ref Range: 4.8-10.8 X10*3/uL) Red Blood Count 5.10 (Ref Range: 4.60-5.80 X10*6/uL) 4.79 (Ref Range: 4.60-5.80 X10*6/uL) 5.15 (Ref Range: 4.60-5.80 X10*6/uL) Hemoglobin 14.3 (Ref Range: 14.0-18.0 g/dl) 13.7 L (Ref Range: 14.0-18.0 g/dl) 15.0 (Ref Range: 14.0-18.0 g/dl) Hematocrit 43.0 (Ref Range: 42.0-52.0 %) 41.9 L (Ref Range: 42.0-52.0 %) 45.1 (Ref Range: 42.0-52.0 %) Mean Corpuscular Volume 84.3 (Ref Range: 80.0-98.0 fL) 87.5 (Ref Range: 80.0-98.0 fL) 87.6 (Ref Range: 80.0-98.0 fL) Mean Corpuscular Hemoglobin 28.0 (Ref Range: 27.0-33.0 pg) 28.6 (Ref Range: 27.0-33.0 pg) 29.1 (Ref Range: 27.0-33.0 pg) Mean Corpuscular HGB Conc 33.3 (Ref Range: 31.0-36.0 g/dl) 32.7 (Ref Range: 31.0-36.0 g/dl) 33.3 (Ref Range: 31.0-36.0 g/dl) Red Cell Distribution Width 13.2 (Ref Range: 11.0-16.0 %) 13.7 (Ref Range: 11.0-16.0 %) 13.5 (Ref Range: 11.0-16.0 %) Platelet Count 239 (Ref Range: 160-400 X10*3/uL) 190 (Ref Range: 160-400 X10*3/uL) 206 (Ref Range: 160-400 X10*3/uL) Mean Platelet Volume 9.9 (Ref Range: 9.4-12.4 fL) 10.0 (Ref Range: 9.4-12.4 fL) 9.7 (Ref Range: 9.4-12.4 fL) Neutrophils Percent Auto 51.7 (Ref Range: 45-73 %) 60.1 (Ref Range: 45-73 %) 54.2 (Ref Range: 45-73 %) Imm Gran Pct Auto 0.2 (Ref Range: 0.0-0.4 %) 0.5 H (Ref Range: 0.0-0.4 %) 0.5 H (Ref Range: 0.0-0.4 %) Lymphocytes Percent Auto 30.6 (Ref Range: 20-40 %) 20.8 (Ref Range: 20-40 %) 24.5 (Ref Range: 20-40 %) Monocytes Percent Auto 10.6 (Ref Range: 2-11 %) 12.5 H (Ref Range: 2-11 %) 10.8 (Ref Range: 2-11 %) Eosinophils Percent Auto 6.2 H (Ref Range: 0-4 %) 5.2 H (Ref Range: 0-4 %) 9.1 H (Ref Range: 0-4 %) Basophils Percent Auto 0.7 (Ref Range: 0-2 %) 0.9 (Ref Range: 0-2 %) 0.9 (Ref Range: 0-2 %) NRBC Pct Auto 0.0 (Ref Range: 0.0-0.2 /100WBC) 0.0 (Ref Range: 0.0-0.2 /100WBC) 0.0 (Ref Range: 0.0-0.2 /100WBC) Neutrophils Absolute Auto 2.8 (Ref Range: 2.0-8.3 x10*3/uL) 3.8 (Ref Range: 2.0-8.3 x10*3/uL) 3.5 (Ref Range: 2.0-8.3 x10*3/uL) Imm Gran Abs Auto 0.01 (Ref Range: 0.00-0.03 X10*3/uL) 0.03 (Ref Range: 0.00-0.03 X10*3/uL) 0.03 (Ref Range: 0.00-0.03 X10*3/uL) Lymphocytes Absolute Auto 1.7 (Ref Range: 1.2-4.9 X10*3/uL) 1.3 (Ref Range: 1.2-4.9 X10*3/uL) 1.6 (Ref Range: 1.2-4.9 X10*3/uL) Monocytes Absolute Auto 0.6 (Ref Range: 0.1-1.2 X10*3/uL) 0.8 (Ref Range: 0.1-1.2 X10*3/uL) 0.7 (Ref Range: 0.1-1.2 X10*3/uL) Eosinophils Absolute Auto 0.3 (Ref Range: 0.0-0.4 X10*3/uL) 0.3 (Ref Range: 0.0-0.4 X10*3/uL) 0.6 H (Ref Range: 0.0-0.4 X10*3/uL) Basophils Absolute Auto 0.0 (Ref Range: 0.0-0.2 X10*3/uL) 0.1 (Ref Range: 0.0-0.2 X10*3/uL) 0.1 (Ref Range: 0.0-0.2 X10*3/uL) NRBC Abs Auto 0.000 (Ref Range: 0.0-0.012 X10*3/uL) 0.000 (Ref Range: 0.0-0.012 X10*3/uL) 0.000 (Ref Range: 0.0-0.012 X10*3/uL) ???Lab:Anti-Thrombin III Antigen (Order Date - 08/21/2024) (Collection Date & Time - 08/21/2024 09:58 AM)?ValueReference Range?Anti-Thrombin III [id number] - % normal ???Lab:Prothrombin Time INR (Order Date - 08/21/2024) (Collection Date & Time - 08/21/2024 09:57 AM)?ValueReference Range?Prothrombin Time10.3L 10.9-12.4 - SEC?INTERNATIONAL NORM RATIO0.90.9-1.1 - * Lab:Heladio AlonsoJoseline Pizarro l Fast * Collection Date 09/20/2024 09/12/2023 09/07/2022 Collection Time 09:07 AM 10:51 AM 08:40 AM Order Date 09/20/2024 09/12/2023 09/07/2022 Sodium 143 (Ref Range: 135-145 mmol/L) 141 (Ref Range: 135-145 mmol/L) 141 (Ref Range: 135-145 mmol/L) Bilirubin Total 0.5 (Ref Range: 0.0-1.0 mg/dL) 0.7 (Ref Range: 0.0-1.0 mg/dL) 0.8 (Ref Range: 0.0-1.0 mg/dL) Aspartate Amino Transferase 18 (Ref Range: 5-37 U/L) 17 (Ref Range: 5-37 U/L) 16 (Ref Range: 5-37 U/L) Alanine Aminotransferase 13 (Ref Range: 0-40 U/L) 16 (Ref Range: 0-40 U/L) 13 (Ref Range: 0-40 U/L) Total Protein 6.8 (Ref Range: 6.5-8.0 g/dL) 6.4 L (Ref Range: 6.5-8.0 g/dL) 5.8 L (Ref Range: 6.5-8.0 g/dL) Albumin Level 4.3 (Ref Range: 3.5-5.0 g/dL) 4.0 (Ref Range: 3.5-5.0 g/dL) 3.8 (Ref Range: 3.5-5.0 g/dL) Alkaline Phosphatase 79 (Ref Range: 39-117 U/L) 70 (Ref Range: 39-117 U/L) 70 (Ref Range: 39-117 U/L) Potassium 4.0 (Ref Range: 3.3-5.1 mmol/L) 4.8 (Ref Range: 3.3-5.1 mmol/L) 4.3 (Ref Range: 3.3-5.1 mmol/L) Chloride 109 H (Ref Range: 96-108 mmol/L) 106 (Ref Range: 96-108 mmol/L) 108 (Ref Range: 96-108 mmol/L) Carbon Dioxide 27 (Ref Range: 22-29 mmol/L) 30 H (Ref Range: 22-29 mmol/L) 27 (Ref Range: 22-29 mmol/L) Anion Gap 11 L (Ref Range: 12-20) 10 L (Ref Range: 12-20) 10 L (Ref Range: 12-20) Blood Urea Nitrogen 17 H (Ref Range: 9-16 mg/dL) 10 (Ref Range: 9-16 mg/dL) 14 (Ref Range: 9-16 mg/dL) Creatinine 1.22 (Ref Range: 0.5-1.4 mg/dL) 1.05 (Ref Range: 0.5-1.4 mg/dL) 1.22 (Ref Range: 0.5-1.4 mg/dL) Estimated Glomerular Filt Rate 59 > 60 59 Glucose Fasting 85 (Ref Range: 60-99 mg/dL) 84 (Ref Range: 60-99 mg/dL) 86 (Ref Range: 60-99 mg/dL) Calcium 9.4 (Ref Range: 8.4-10.2 mg/dL) 9.3 (Ref Range: 8.4-10.2 mg/dL) 8.7 (Ref Range: 8.4-10.2 mg/dL) * Lab:Lipid Panel * Collection Date 09/20/2024 09/12/2023 09/07/2022 Collection Time 09:07 AM 10:51 AM 08:40 AM Order Date 09/20/2024 09/12/2023 09/07/2022 Triglycerides 86 (Ref Range: <150 mg/dL) 71 (Ref Range: <150 mg/dL) 77 (Ref Range: mg/dL) Cholesterol 216 H (Ref Range: <200 mg/dL) 224 H (Ref Range: <200 mg/dL) 202 (Ref Range: mg/dL) LDL Cholesterol Calculated 148 H (Ref Range: <100 mg/dL) 143 H (Ref Range: <100 mg/dL) 132 (Ref Range: mg/dl) HDL Cholesterol 51 (Ref Range: >40 mg/dL) 67 (Ref Range: >40 mg/dL) 55 (Ref Range: mg/dL) * Lab:PSA Free and Total * Collection Date 09/20/2024 09/07/2022 02/22/2022 Collection Time 09:07 AM 08:40 AM 11:23 AM Order Date 09/20/2024 09/07/2022 02/22/2022 Prostate Specific Ag Total 4.4 A (Ref Range: < OR = 4.0 ng/mL) 4.4 A (Ref Range: < OR = 4.0 ng/mL) 4.4 A (Ref Range: < OR = 4.0 ng/mL) Percent Free Prostate Spec Ag 18 A (Ref Range: >25 % (calc)) 30 (Ref Range: >25 % (calc)) 23 A (Ref Range: >25 % (calc)) Free Prostate Spec Ag 0.8 (Ref Range: ng/mL) 1.3 (Ref Range: ng/mL) 1.0 (Ref Range: ng/mL) * Lab:URINE DIP STICK * Collection Date 09/24/2024 09/22/2023 09/16/2022 Order Date 09/24/2024 09/22/2023 09/16/2022 SG 1.025 (Ref Range: 1.005 - 1.025) 1.020 (Ref Range: 1.005 - 1.025) 1.030 (Ref Range: 1.005 - 1.025) pH 5.0 (Ref Range: 5.0 - 9.0) 5.0 (Ref Range: 5.0 - 9.0) 5.0 (Ref Range: 5.0 - 9.0) CIELO 15 (+) (-) (Ref Range: Negative -) 15 (Ref Range: Negative -) Negative (Ref Range: Negative -) NIT Negative (Ref Range: Negative -) Negative (Ref Range: Negative -) Negative (Ref Range: Negative -) PRO 15 (Ref Range: Negative - Trace) 15 (Ref Range: Negative - Trace) 15 (Ref Range: Negative - Trace) GLU Negative (Ref Range: Negative -) Negative (Ref Range: Negative -) Negative (Ref Range: Negative -) KET 5 (Ref Range: Negative -) Negative (Ref Range: Negative -) Negative (Ref Range: Negative -) UBG 0.2 (Ref Range: 0.1 - 1.8) 0.2 (Ref Range: 0.1 - 1.8) 0.2 (Ref Range: 0.1 - 1.8) STEF Negative (Ref Range: 0.2 - 1.3) Negative (Ref Range: 0.2 - 1.3) Negative (Ref Range: 0.2 - 1.3) BLD Negative (Ref Range: Negative -) Negative (Ref Range: Negative -) Negative (Ref Range: Negative -) Menstrating NR NR N/A ???Imaging:US venous duplex LE RT (Order Date - 08/21/2024) (Performed Date - 08/21/2024) * Examination: G eneral Examination: GENERAL APPEARANCE: p barbi, well nourished, well developed, in no acute [...] I82.431 (Primary) ?Notes :A thrombophilia workup is Negative. He is tolerating [...] the activities of daily life. 4 . A nticoagulated - Z79.01 N otes :There is no contraindication anticoagulation which will be for approximately 4 months. 5 . P rosina fascial fibromatosis [Dupuytren] - M72.0 N otes :He has mild bilateral Dupuytren's contractures but says they do not bother him. He does not wish treatment at this time. 6 . H yperlipidemia, unspecified hyperlipidemia type - E78.5 N otes :Comprehensive blood work is being done periodically. No change in his regimen was made. Plan: * Treatment: 2. B PH (benign prostatic hyperplasia) Continue Apixaban Tablet, 5 MG, one tablet, Orally, twice a day. 3. O thers Continue buPROPion HCl Tablet, 100 MG, TAKE 1 TABLET BY MOUTH TWICE DAILY; C ontinue Terazosin HCl Capsule, 2 MG, TAKE 1 CAPSULE BY MOUTH EVERY DAY AT BEDTIME; C ontinue Finasteride Tablet, 5 MG, 1 tablet, Orally, Once a day; C ontinue Tadalafil Tablet, 5 MG, 1 tablet as needed, Orally, Once a day. * Labs: * L ab: URINE DIP STICK (Collection Date & Time - 09/24/2024) Value Reference Range S G 1.025 1.005 - 1.025 * p H 5.0 5.0 - 9.0 * L EU 15 (+) (-) Negative - * N IT Negative Negative - * P RO 15 Negative - Trace * G RASHID Negative Negative - * K ET 5 Negative - * U BG 0.2 0.1 - 1.8 * B IL Negative 0.2 - 1.3 * B LD Negative Negative - * Procedure Codes: 8 1002 URINE-NO MICRO * Follow Up: 3 Months (Reason: OV) * Images: * Sign off status: Completed true * Provider: Rudy Aranda MD Date: 0 09/24/2024 Generated for Donta conrad/Dewayne/Taviaitting on: 1 04/29/2024 03:01 PM EST History and Physical Notes * HPI (History of Present Illness) Category Sub-Category Detail Notes Depression Screening PHQ-9 Little inte rest or pleasure in doing things: More than half the days Feeling down, depressed, or hopeless: Mo re than half the days Trouble falling or staying a sleep, or sleeping too much: More than half the days Feeling tired or having little energy: M ore than half the days Poor appetite or overeating: More than h conchita the days Feeling bad about yourself o r that you are a failure, or have let yourself or your family down: More than half the days Trouble concentrating on thi ngs, such as reading the newspaper or watching television: More than half the days Moving or speaking so slowly that other people could have noticed; or the opposite, being so fidgety or restless that you have been moving around a lot more than usual: Not at all Thoughts that you would be b lexi off or of hurting yourself in some way: Not at all Total Score: 14 Interpretation: Moderate Depression COVID-19 Screening Questions Have you had any new onset fever, chills, cough, congestion, sore throat, shortness of breath, muscle aches?: No SDOH Questions SDOH Questions In the past [...]
--- OUTSIDE RECORDS SUMMARY | 2024-12-25 05:30 | XMS_ITS ---
Author Organization Sebastián Aranda III, MD Address [address] [address] Care Team Providers Care Jordan Worker Name Role Phone Dr. Sebastián Aranda III Primary Care Provider Allergies Allergen (clinical drug ingredient) Drug/Non Drug Allergy documented on EMR Reaction Allergy Type Onset Date Status No Known Food Allergy Unknown Drug Allergy Active amoxicillin Amoxicillin rash Drug Allergy Act graeme REASON FOR VISIT Depression, Benign prostatic hypertrophy, Hyperlipidemia, Dupuytren's contracture, History of DVT, Anticoagulated Medications Medication SIG (Take, Route, Fr equency, Duration) Notes Start Date End Date Status Terazosin HCl 2 MG TAKE 1 CAPSULE BY [facility] EVERY DAY AT BEDTIME Active Eliquis 5 MG as directed Orally twice a day 2024 Active Apixaban 5 MG one tablet Orally twice a day 2024 Active Finasteride 5 MG 1 tablet Orally Once a day Active Tadalafil 5 MG 1 tablet as needed O rally Once a day Active buPROPion HCl 100 MG TAKE 1 TABLET BY [facility] TWICE DAILY Active Social History Tobacco Use: Social History Observation Description Date Details (start date - stop date) Never Smoker NA - NA Sex Assigned At : Social History Observation Description Sex Assigned At Male Tobacco Control (Standard) Question Answer Notes Tobacco use: Nonsmoker Additional Findings: Tobacco non-user Aggressive nonsmoker Vital Signs Temperature 98.1 degrees Fahrenheit 12/26/19 25 Blood pressure systolic 129 mm Hg 12/26/19 25 Blood pressure diastolic 85 mm Hg 025 Heart Rate 81 /min 12/25/2024 Height 68 in 12/25/2024 Weight 148 lbs 12/25/2024 BMI 22.5 kg/m2 12/25/2024 Encounters Encounter Location Date Provider Diagnosis Sebastián Aranda III, MD [address] [place] [address] [place] [id number] 12/25/2024 Sebastián Aranda Acute deep vein thrombosis (DVT) of right popliteal vein I82.431 ; Acute deep vein thrombosis (DVT) of popliteal vein of right lower extremity I82.431 ; BPH (benign prostatic hyperplasia) N40.0 ; Erectile dysfunction N52.9 ; Depression F32.9 and Anticoagulated Z79.01 Assessments Encounter Date Diagnosis (ICD Code) Assessment Notes T reatment Notes Treatment Clinical Notes 12/25/2024 Acute deep vein thrombosis (DVT) of right popliteal vein (ICD-10 - I82.431) A thrombophilia workup is Negative. He is tolerating the apixaban well. A follow-up for 4 weeks was arranged. 12/25/2024 Acute deep vein thrombosis (DVT) of popliteal vein of right lower extremity (ICD-10 - I82.431) There is no contraindication to anticoagulation which is ongoing. The thrombophilia evaluation is pending. 12/25/2024 BPH (benign prostatic hyperplasia) (ICD-10 - N40.0) He rises from sleep once or twice a night. He is now under the care of a urologist. He is compliant with all of his medications. 12/25/2024 Erectile dysfunction (ICD-10 - N52.9) This complaint is well controlled with oral medication. However, he says he hardly ever has a opportunity to use it 12/25/2024 Depression (ICD-10 - F32.9) His bupropion was discontinued. His depression has been addressed and is well controlled. He is able to conduct all of the activities of daily life. 12/25/2024 Anticoagulated (ICD-10 - Z79.01) There is no contraindication anticoagulation which will be for approximately 4 months. Plan Of Treatment Medication Medication Name Sig Start Date Stop Date Notes Terazosin HCl 2 MG TAKE 1 CAPSULE BY [facility] EVERY DAY AT BEDTIME Eliquis 5 MG as directed Orally twice a day 08/23/2024 Apixaban 5 MG one tablet Orally twice a day 08/23/2024 Finasteride 5 MG 1 tablet Orally Once a day Tadalafil 5 MG 1 tablet as needed Orally Once a day buPROPion HCl 100 MG TAKE 1 TABLET BY MOUTH TWICE DAILY Next Appt Details Follow Up: 2 Months, Reason: OV Provider Name:Sebastián Aranda , 03/10/2025 09:45:00 AM, [address] [place] [address] [address], [place], [phone], Provider Name:Sebastián Aranda , 09/25/2025 10:00:00 AM, [address] [place] [address] [address], [place], [id number], Progress Notes * Og LOBATODOB: 6 (69 yo M)Acc No.[id number]:12/25/2024 Progress Notes Patient: Rubi CORTEZ Jimbotanvi Provider: Rudy Aranda MD :1955 A ge:69 Y S ex:Male Date:12/25/2024 Address:[address] [place] [address] [place], [id number] Subjective: * Chief Complaints: * D epressionBenign prostatic hypertrophyHyperlipidemiaDupuytren's contractureHistory of DVTAnticoagulated * HPI: C OVID-19 Screening: He returns for medical management. He remains anticoagulated but has had no bleeding or further clotting. He is breathing comfortably. His PSA was 4.48 but he had stopped his finasteride. He has now resumed it. He occasionally gets trace edema in the ankle on the left leg after the DVT. He is otherwise stable and has no complaints of depression. Questions H ave you had any new onset fever, chills, cough, congestion, sore throat, shortness of breath, muscle aches? N o * ROS: G eneral/Constitutional: pain O ccasionally in the left leg. C hills d enies. F atigue a [...] been noted. G enitourinary: Frequent urination t wice a night. M usculoskeletal: Muscle aches d [...] dditional Findings: Tobacco non-user A ggressive nonsmoker aRmos smith is from [facility] for several years.They have 2 step daughters. 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 He was born in [place]. * Medications: T akingbuPROPion HCl 100 MG Tablet TAKE 1 TABLET BY MOUTH TWICE DAILY Terazosin HCl 2 MG Capsule TAKE 1 CAPSULE BY MOUTH EVERY DAY AT BEDTIME Finasteride 5 MG Tablet 1 tablet Orally Once a day Tadalafil 5 MG Tablet 1 tablet as needed Orally Once a day Eliquis 5 MG Tablet as directed Orally twice a day Apixaban 5 MG Tablet one tablet Orally [...] as directed Orally twice a day Taking Apixaban 5 MG Tablet one tablet Orally twice a day Medication List reviewed and reconciled with the patient * Allergies: A moxicillin: Buster Known Food Allergyno[Allergies Verified] Objective: * Vitals: H t: 68, Wt:148, BMI:22.5, BP:129/85, HR:81, Temp:98.1, Wt-k.13. * P ast Orders: Lab:PSA,Total (Free>4and<10) * Collection Date 11/04/2024 02/22/2022 Collection Time 08:13 AM 08:30 AM Order Date 11/04/2024 02/22/2022 PSA,Total (Free>4and<10) 3.71 (Ref Range: 0.00-4.00 ng/mL) 5.65 H (Ref Range: 0.00-4.00 ng/mL) * Lab:URINE DIP STICK * Collection [...] Range: Negative -) Menstrating NR NR N/A * Examination: G eneral Examination: GENERAL APPEARANCE: p leasant, well nourished, well developed, in no acute distress, calm and relaxed: man. HEAD: a traumatic, normocephalic. EYES: e [...] xtremities unremarkable, no clubbing, cyanosis or edema, No peripheral edema noted. PERIPHERAL PULSES: n ormal. NEUROLOGIC: a lert [...] The thrombophilia evaluation is pending. 2 . A cute deep vein thrombosis (DVT) of right popliteal vein - I82.431 ? N otes :A thrombophilia workup is Negative. He is tolerating the apixaban well. A follow-up for 4 weeks was arranged. 3 . B PH (benign prostatic hyperplasia) - N40.0 N otes :He rises from sleep once or twice a night. He is now under the care of a urologist. He is compliant with all of his medications. 4 . E rectile dysfunction - N52.9 N otes :This complaint is well controlled with oral medication. However, he says he hardly ever has a opportunity to use it 5 . D epression - F32.9 N otes :His bupropion was discontinued. His depression has been addressed and is well controlled. He is able to conduct all of the activities of daily life. 6 . A nticoagulated - Z79.01 N otes :There is no contraindication anticoagulation which will be for approximately 4 months. Plan: * Treatment: 2. B PH (benign [...] as needed, Orally, Once a day. * Procedure Codes: * Follow Up: 2 Months (Reason: OV) * Images: * Sign off status: Completed true * Provider: Rudy Aranda MD Date: 0 12/25/2024 Generated for Donta conrad/Dewayne/eTransmitting on: 1 04/29/2024 03:01 PM EST History and Physical Notes * HPI (History of Present Illness) Category Sub-Category Detail Notes COVID-19 Screening Questions Have you had any new onset fever, chills, cough, congestion, sore throat, shortness of breath, muscle aches?: No Examination Category Sub-Category Detail Notes General Examination GENERAL APPEARANCE: pleasant , well nourished, well developed, in no acute distress, calm and relaxed: man HEAD: atraumatic, normocep halic EYES: eomi, [...] unremark able, no clubbing, cyanosis or edema, No peripheral edema noted LYMPH NODES: no enlarged lymph no jason,spleen normal RECTAL EXAM: not examined PSYCH: alert, oriented ORAL CAVITY: normal, unremarkable
--- NOTE | 2025-02-27 11:53 | A.OFFVIS_ITS ---
Intake Visit Reasons: Elevated PSA/PVR Intake Note: Patient is present for ELEVATED PSA/PVR Urology Medication:TADALAFIL,FINASTERIDE Antibiotic Allergy:AMOXICILLIN Blood Thinner:APIXABAN Todays PVR:30ML'S Attending Ambulatory Care Required: No Allergies amoxicillin (Amoxicillin) Allergy (Mild, Verified 02/27/25 12:20) RASH Medication List - Last Reconciled 02/27/25 by Katey Srivastava, HOSPITAL RECEIVING CLERK-BC apixaban (Eliquis DVT-PE Treat 30D Start) 5 mg PO BID bupropion HCl 100 mg PO BID finasteride 5 mg PO DAILY 90 days tadalafil (Cialis) 5 mg PO DAILY 90 days tadalafil (Cialis) 20 mg PO DAILY PRN 90 days HPI Comments Details: Og is a pleasant 69-year-old male patient of Dr. Aranda. He presents to the office today for follow-up his elevated PSA and erectile dysfunction. In discussion with the patient today he reports to be doing and feeling well. Recent PSA results reviewed with the patient today as noted and trended below. We did discuss potential causes of increase in PSA. He discusses his upcoming trip to [facility] to visit his girlfriend until July. We discussed potential causes of labile PSA. He currently denies any bothersome urinary issues. He continues to utilize daily dosing of low-dose tadalafil with p.r.n. dosing prior to sexual activity and feels this has been helpful in treatment of his erectile dysfunction. Previous workup has included a retroperitoneal ultrasound 11/06 noting bilateral kidneys with no calculi, lesions, or hydronephrosis noted. Diffuse wall thickening with trabeculations noted to the bladder. Pre void bladder volume is approximately 250 mL. Postvoid bladder volume is approximately 95 mL. Enlarged prostate with a volume of 91 mL. Labs are as follows: PSAs are as follows: 09/04 5.5, 09/05 5.4, 03/08 5.7, 03/08 4.4 % free PSA 23%, 09/06 4.4 %free PSA 30%, 03/09 3.2, 09/07 3.1, 12/08 3.0, 09/08 4.5, 10/09 4.4 % free PSA 18%, 02/08 3.0 Testosterone: 12/08 704 Free testosterone: 12/08 79.6 He denies urinary urgency, urinary frequency, nocturia, incontinence, hematuria, dysuria, foul smelling urine, changes to urinary stream, flank pain, fever, and or chills. In office urinalysis results reviewed with the patient today. He otherwise denies any issues or concerns at this time. Review of Systems Const All systems reviewed & are unremarkable except as noted in HPI and below Eyes Reports as per HPI ENT Reports no additional complaints Card Reports no additional complaints Resp Reports no additional complaints GI Reports no additional complaints Reports as per HPI Musc Reports no additional complaints Skin/Breast Reports as per HPI Neuro Reports no additional complaints Psych Reports no additional complaints Endo Reports no additional complaints Asael/Lymph Reports no additional complaints Aller/Immun Reports no additional complaints Physical Exam Const General: cooperative, healthy appearing, comfortable, no acute distress, well developed, alert and awake Nutritional Appearance: average body habitus Orientation/consciousness: patient oriented x3 Limitations: no limitations HEENT Head: Yes normal to inspection, Yes normocephalic and Yes atraumatic Ears: hearing grossly normal bilaterally Eyes General: appearance normal, both eyes and all related structures Neck Neck: Yes normal visual inspection and Yes trachea midline Chest Chest palpation & inspection: normal inspection of the chest Resp Effort & Inspection: normal respiratory effort and able to speak in complete sentences Cardio Rate: regular rate GI Inspection: Yes normal to inspection General: Yes no CVA tenderness Back/Spine/Pelvis Back: no CVA tenderness Skin General skin exam: no rashes or lesions noted Neuro General: patient oriented x3 Extrem General: Yes normal to inspection Psych Appearance: grossly normal and well kempt Mental Status: mental status grossly normal Speech and movement: Normal speech and movement present and Clear speech present Affect: normal affect Attitude: cooperative Thought process: Normal thought process present Thought content: Normal thought content present Insight: Fair insight present (Psych) Judgement: Fair judgement present (Psych) Office Procedures Post Void Residual Post Residual Void Post Void Residual (PVR): 30 60369-Vemb Void Residual by ultrasound Assessment & Plan Assessment & Plan (1) Erectile dysfunction: Code(s): N52.9 - Male erectile dysfunction, unspecified Category: Medical (2) Elevated PSA: Code(s): R97.20 - Elevated prostate specific antigen [PSA] Category: Medical (3) Enlarged prostate: Code(s): N40.0 - Benign prostatic hyperplasia without lower urinary tract symptoms Category: Medical (4) Lower urinary tract symptoms: Code(s): R39.9 - Unspecified symptoms and signs involving the genitourinary system Category: Medical (5) Bladder wall thickening: Code(s): N32.89 - Other specified disorders of bladder Category: Medical Plan In office urinalysis results reviewed with the patient today; as noted above. PVR 30 mL Most recent PSA results reviewed with the patient today; as noted above. We did discussed potential causes of elevated/labile PSA; we did discussed potential causes and further treatment options. We discussed risks and benefits of these treatment options. He currently denies any bothersome urinary issues or concerns. He reports be happy with current voiding parameters. Continue finasteride and low-dose Cialis as discussed and prescribed. P.r.n. dosing for Cialis also provided. Will obtain PSA in 6 months as patient will be away and [place] until July. Follow-up in 6 months with PSA and PVR; or sooner with any issues, concerns, and or questions. Orders: Orders Prostate Specific Antigen 6 Months N40.0 - Benign prostatic hyperplasia without lower urinary tract symptoms, N52.9 - Male erectile dysfunction, unspecified, R97.20 - Elevated prostate specific antigen [PSA] Medications: Refilled finasteride 5 mg PO DAILY 90 tabs 3RF 90 days N13.8 - Other obstructive and reflux uropathy, N40.1 - Benign prostatic hyperplasia with lower urinary tract symptoms, R33.9 - Retention of urine, unspecified tadalafil (Cialis) 5 mg PO DAILY 90 tabs 3RF 90 days tadalafil (Cialis) administer approximately 30-60 min before sexual activity; do not use more than 1 dose per 24hrs 20 mg PO DAILY PRN 40 tabs 3RF sexual activity 90 days Patient Instructions: The patient had an opportunity to ask questions regarding the treatment plan. All questions were answered. Physical exam, labs, and imaging were discussed and reviewed in detail. As well as risks, benefits, and discussion of treatment choices. No major barriers to understanding were identified. The patient expressed understanding and agreement with the above treatment plan. The patient was made aware they should contact our office by phone for worsening of their current condition, the appearance of new symptoms, or with any questions or concerns. Compliance is encouraged with any medications and follow up testing that is ordered. It is a privilege to be allowed the opportunity to participate in? your urological care.? Again, if you have any questions or concerns If you have any questions or concerns please do not hesitate to contact me. The office is [phone]. This note is constructed using voice recognition software. While every effort has been made to ensure accuracy geothermal powerplant mechanic helper errors may have been included. Yours sincerely, ANTHONY Ponce Coding Level of Care Code Est Pt Level 3 (20244) Complex EM visit Add On G2211 Diagnoses Erectile dysfunction N52.9 Elevated PSA R97.20 Enlarged prostate N40.0 Lower urinary tract symptoms R39.9 Bladder wall thickening N32.89 CPT Codes Post Residual Void - PVR CPT Code: 25277-Ejkv Void Residual by ultrasound ([id number])
--- OUTSIDE RECORDS SUMMARY | 2025-02-27 15:00 | XMS_ITS | Patient Health Record ---
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 Sebastián Aranda III [...] Antigen Reviewed date:08/17/2024 08:41:07 PM Interpretation: Performing Lab:[facility], [address] [place] [phone] Notes/Report: Prostate Specific Antigen 4.48 <0.05-4.0 ng/mL PSA methodology: Bermeo Alinity i Chemiluminescent Microparticle Immunoassay (CMIA) Complete Blood Count Auto Di ff Reviewed date:08/25/2024 07:54:07 PM Interpretation: Performing Lab:[facility], [address] [place] [phone] Notes/Report: White Blood Count 6.3 4.8-10.8 X10*3/uL [...] INR Reviewed date:08/25/2024 07:54:07 PM Interpretation: Performing Lab:[facility], [address] [place] [phone] Notes/Report: Prothrombin Time 10.3 10.9-12.4 SEC INTERNATIONAL [...] Time Reviewed date:08/25/2024 07:54:07 PM Interpretation: Performing Lab:[facility], [address] [place] [phone] Notes/Report: Partial Thromboplastin Time 30.0 26.0-36.8 SEC For information regarding the monitoring of direct thrombin inhibitors, please refer to Pharmacy. Protein C Activity Reflex Ag Reviewed date:09/24/2024 10:24:11 AM Interpretation: Performing Lab:[facility], [address] [place] [phone] Notes/Report: Protein C Activity 117 70-180 % normal THIS TEST WAS PERFORMED AT: [facility] [address] DAX MCCULLOUGH MD,PHD Protein C Antigen Add TNP Protein C Antigen TNP Protein S Activity reflex Ag Reviewed date:09/24/2024 10:24:11 AM Interpretation: Performing Lab:[facility], [address] [place] [phone] Notes/Report: Protein S Activity rflx Tot Fr 95 70-150 % normal THIS TEST WAS PERFORMED AT: [facility] [address] [place] [address] DAX MCCULLOUGH MD,PHD Protein S Total (Antigenic) TNP Protein S Free Antigen TNP Anti-Thrombin III Activity Reviewed date:09/24/2024 10:24:11 AM Interpretation: Performing Lab:[facility], [address] [place] [phone] Notes/Report: Anti-Thrombin III Activity 104 80-135 % normal THIS TEST WAS PERFORMED AT: [facility] [address] [place] [address] DAX MCCULLOUGH MD,PHD Anti-Thrombin III Antigen Reviewed date:09/24/2024 10:24:11 AM Interpretation: Performing Lab:[facility], [address] [place] [phone] Notes/Report: Anti-Thrombin III Antigen 90 80-120 % normal THIS TEST WAS PERFORMED AT: [facility]/[address] [address] DAX MCCULLOUGH MD,PHD Factor V Leiden Reviewed date:09/24/2024 10:24:11 AM Interpretation: Performing Lab:[facility], [address] [place] [phone] Notes/Report: Factor V Leiden NEGATIVE FACTOR V [...] and results monitored by Joshua Ramirez, Ph.D., [facility], [facility], [facility]. VARIANT ANALYSIS: The Factor V Leiden [...] Health care providers, please contact your local [facility] genetic counselor or call Home Delivery Service (HDS) ([phone]) for assistance with interpretation of these results. This test was developed and its analytical performance characteristics have been determined by [facility]. It has not been cleared or approved by the FDA. This assay has been validated pursuant to the CLIA regulations and is used for clinical purposes. THIS TEST WAS PERFORMED AT: [facility] [address] [place] [address] EVONNE FIGUEROA MD,PHD,SANTO Prothrombin 74816A Reviewed date:09/24/2024 10:24:11 AM Interpretation: Performing Lab:[facility], [address] [place] [phone] Notes/Report: Prothrombin 61817D NEGATIVE RESULT: G 25484I VARIANT NOT DETECTED [id number] See Below INTERPRETATION: This individual is negative (normal) for the M30900Y variant in the Prothrombin/Factor II gene. Increased risk of thrombophilia can be caused by a variety of genetic and non-genetic factors not screened for by this assay. Laboratory testing supervised and results monitored by Joshua Ramirez, Ph.D., [facility], [facility], [facility]. The T20759E mutation [UP114187.1: g.24088A>A (c.*97G>A)] in the Prothrombin/Factor II gene is the second most common inherited risk factor for thrombosis occurring in approximately 2% of Caucasians. Presence of the mutation is associated with an elevation of prothrombin levels to about 30% above normal in heterozygotes and to 70% above normal in homozygotes. Prothrombin (W85032B) mutations are detected by amplification of their [...] Health care providers, please contact your local [facility]' genetic counselor or call [phone] ([phone]) for assistance with interpretation of these results. This test was developed and its analytical performance characteristics have been determined by [facility]. It has not been cleared or approved by the FDA. This assay has been validated pursuant to the CLIA regulations and is used for clinical purposes. THIS TEST WAS PERFORMED AT: [facility] [address] [place] [address] EVONNE FIGUEROA MD,PHD,SANTO Lupus Anticoagulant Panel Reviewed date:09/24/2024 10:24:11 AM Interpretation: Performing Lab:[facility], [address] [place] [phone] Notes/Report: Lupus Interpretation see note A Lupus Anticoagulant is not detected. Reference Range: Not Detected For additional information, please refer to http://education.EverCloud/faq/FA Q01v2 (This link is being provided for informational/ educational purposes only.) This interpretation is based on the following test results. PTT (LAC) Screen 37 <=40 sec DRVVT Screen 31 <=45 sec THIS TEST WAS PERFORMED AT: [facility]/[address] [address] DAX MCCULLOUGH MD,PHD DRVVT Confirmation TNP DRVVT 1:1 Mix TNP DRVVT 1:1 Mix Interpretation TNP Hexagonal Phase Neutralization TNP Thrombin Clotting Time TNP Comprehensive Met. Panel Reviewed date:08/25/2024 07:54:07 PM Interpretation: Performing Lab:[facility], [address] [place] [phone] Notes/Report: Sodium 138 135-145 mmol/L Potassium 4.5 [...] date:08/25/2024 07:54:07 PM Interpretation: Performing Lab: Notes/Report: [address] [address] Ultrasound Report Signed Patient: Og Lobato MR#: [id number] : 1955 Acct:[id number] Age/Sex: 68 / M ADM Date: 08/21/24 Loc: HO.US Attending Dr: Sebastián Aranda MD Ordering Physician: Sebastián Aranda MD Date of Service: 08/21/24 Procedure(s): US venous duplex LE RT Accession Number(s): [id number] cc: Sebastián Aranda MD EXAMINATION: US LOWER [...] MD Signed By: <Electronically signed by Sebastián Augstin MD in OV> 08/21/24 0820 DD/ 0734 TD/TT: 08/21/24 0801 Php Developer: [address] [address] Ultrasound Report Signed Patient: Og Lobato MR#: [id number] : 1955 Acct:[id number] Age/Sex: 68 / M ADM Date: 08/21/24 Loc: HO.US Attending Dr: Sebastián Aranda MD Ordering Physician: Sebastián Aranda MD Date of Service: 08/21/24 Procedure(s): US venous duplex LE RT Accession Number(s): [id number] cc: Sebastián Aranda MD EXAMINATION: US LOWE [...] 08/21/24 0820 DD/ 0734 TD/TT: 08/21/24 0801 Php Developer: Complete Blood Count Auto Di ff Reviewed date:09/24/2024 10:24:11 AM Interpretation: Performing Lab:[facility], [address] [place] [phone] Notes/Report: White Blood Count 5.5 4.8-10.8 X10*3/uL [...] NRBC Abs Auto 0.000 0.0-0.012 X10*3/uL Comprehensive [place]. Panel Fa st Reviewed date:09/24/2024 10:24:11 AM Interpretation: Performing Lab:[facility], [address] [place] [phone] Notes/Report: Sodium 143 135-145 mmol/L Potassium 4.0 [...] Panel Reviewed date:09/24/2024 10:24:11 AM Interpretation: Performing Lab:[address] [address] Notes/Report: Triglycerides 86 <150 mg/dL Desirable Triglyceride: [...] Total Reviewed date:09/24/2024 10:24:11 AM Interpretation: Performing Lab:[facility], [address] [place] [phone] Notes/Report: Prostate Specific Ag Total 4.4 < [...] 30 93 9 (3)Catalona et al.:LYNDA 277: 1118-1140 (1996) (4)Catalona et al.:LYNDA 279: 7702-4719 (1997) (x)These estimates vary with age, ethnicity, [...] of disease. THIS TEST WAS PERFORMED AT: [facility] [address] [address] DEIDRA SANCHEZ MD Free Prostate Spec Ag 0.8 PSA,Total (Free>4and<10) Reviewed date:11/16/2024 07:19:36 PM Interpretation: Performing Lab:[facility], [address] [place] [phone] Notes/Report: PSA,Total (Free>4and<10) 3.71 0.00-4.00 ng/mL A [...] between 4.0 and 10.0 ng/mL. PSA methodology: Adarza Bio[employer] i Chemiluminescent Microparticle Immunoassay (CMIA) PSA,Total (Free>4and<10) Reviewed date:02/16/2025 07:32:16 AM Interpretation: Performing Lab:[facility], [address] [place] [phone] Notes/Report: PSA,Total (Free>4and<10) 2.98 0.00-4.00 ng/mL A Free PSA was not [...] HCl 100 MG TAKE 1 TABLET BY [facility] TWICE DAILY for 90 Active Terazosin HCl 2 MG TAKE 1 CAPSULE BY [facility] EVERY DAY AT BEDTIME Active Eliquis [...] Problem Status W/U Status Risk Notes Problem 77762565 Depression (F32.9) Active confirmed His bupropion w as discontinued. His depression has been addressed and is well controlled. He is able to conduct all of the activities of daily life. 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 He does not wish treatment at this time. Problem 834958476 BPH (benign prostatic hyperplasia) (N40.0) Active confirmed He rises from sleep once or twice a night. He is now under the care of a urologist. He is compliant with all of his medications. Problem 720827975 Anticoagulated (Z79.01) Active confirmed There is no contraindication anticoagulation which will be for approximately 4 months. Problem 173485867 Erectile dysfunction (N52.9) Active confirmed This complaint is well controlled with oral medication. However, he says he hardly ever has a opportunity to use it Problem 54941161 Penicillin allergy (Z88.0) Active confirmed He is aware of the allergy and avoids penicillin. Problem 411783239280935 History of herpes zoster (Z86.19) Active confirmed He has had no further outbreaks of this problem. Problem Hyperlipidaemia (19203668) Hyperlipidemia, unspecified hyperlipidemia type (E78.5) Active confirmed Comprehensive blood work is being done periodically. No change in his regimen was made. Problem 308367662965637 Acute deep vein thrombosis (DVT) of popliteal vein of right lower extremity (I82.431) Active confirmed There is no contraindication to anticoagulation which is ongoing. The thrombophilia evaluation is pending. Problem 632437933230893 Acute deep vein thrombosis (DVT) of right [...] Date Provider Diagnosis Sebastián Aranda III, MD [address] [place] [address] [place] [phone] 08/20/2024 Sebastián Aranda BPH (benign prostati c hyperplasia) N40.0 ; Acute deep vein thrombosis (DVT) of popliteal vein of right lower extremity I82.431 ; Depression F32.9 ; Palmar fascial fibromatosis [Dupuytren] M72.0 ; Hyperlipidemia, unspecified hyperlipidemia type E78.5 and Anticoagulated Z79.01 Sebastián Aranda III, MD [address] [place] [address] [place] [address] 08/23/2024 Sebastián Aranda BPH (benign prostati c hyperplasia) N40.0 ; Acute deep vein thrombosis (DVT) of right popliteal vein I82.431 ; Depression F32.9 ; Hyperlipidemia, unspecified hyperlipidemia type E78.5 and Palmar fascial fibromatosis [Dupuytren] M72.0 Sebastián Aranda III, MD [address] [place] [address] [place] [address] 09/24/2024 Sebastián Aranda Acute deep vein thrombosis (DVT) of right popliteal vein I82.431 ; BPH (benign prostatic hyperplasia) N40.0 ; Depression F32.9 ; Anticoagulated Z79.01 ; Palmar fascial fibromatosis [Dupuytren] M72.0 and Hyperlipidemia, unspecified hyperlipidemia type E78.5 Sebastián Aranda III, MD [address] [place] [address] [address] [place] [phone] 12/25/2024 Sebastián Aranda Acute deep vein thrombosis (DVT) of right popliteal vein I82.431 ; Acute deep vein thrombosis (DVT) of popliteal vein of right lower extremity I82.431 ; BPH (benign prostatic hyperplasia) N40.0 ; Erectile dysfunction N52.9 ; Depression F32.9 and Anticoagulated Z79.01 Sebastián Aranda III, MD [address] [place] [address] [place] [address] 08/21/2024 Sebastián Aranda Assessments Encounter Date Diagnosis [...] Provider Name:Sebastián Aranda , 03/10/2025 09:45:00 AM, [address] [place] [address] [address], [place], [phone], Provider Name:Sebastián Aranda , 09/25/2025 10:00:00 AM, [address] [place] [address] [address], [place], [phone], Insurance Providers Payer Name Payer Address Payer Phone Subscriber Number Group Number Insured Name Patient Relationship to Insured Coverage Start Date Coverage End Date [facility] [address] [facility] [address] [facility] [place] [phone] [id number] Og Lobato Self - patient is the insured MEDICARE NGS [address] [place] [phone] [id number] Og Lobato Self - patient is the insured Medical (General) History Medical History History ICD Code shingles age 10 depression Dupuyten's contractures allergic amoxicillin ED BPH Surgical History Surgery Date(Month/Year) No history Tonsils removed at 7 years old GI biopsy 04/2019 negative colonoscopy 2008 Hospitalization History Reason Date(Month/Year) No history
== END 2025-02-27 12:27 | disposition home or self-care (01) ==
LOC: HO.HUSH 11:51
PROVIDERS: PCP Internal Medicine Medical Oncology; Visit Provider Nurse Practitioner Family
DX: N52.9 Male erectile dysfunction, unspecified (principal); R97.20 Elevated prostate specific antigen [PSA]; N40.0 Benign prostatic hyperplasia without lower urinary tract symptoms; R39.9 Unspecified symptoms and signs involving the genitourinary system; N32.89 Other specified disorders of bladder; Z13.9 Encounter for screening, unspecified
CPT/HCPCS: 99213; G2211

== ENCOUNTER → 2025-02-27 11:50 | Outpatient (BNVA) | payer MEDICARE, SELFPAY | PROVIDERS: PCP Internal Medicine Medical Oncology; Visit Provider Nurse Practitioner Family | DX: N40.0 Benign prostatic hyperplasia without lower urinary tract symptoms (principal); N52.9 Male erectile dysfunction, unspecified; R97.20 Elevated prostate specific antigen [PSA]; R39.9 Unspecified symptoms and signs involving the genitourinary system; N32.89 Other specified disorders of bladder; N13.8 Other obstructive and reflux uropathy; R33.9 Retention of urine, unspecified | CPT/HCPCS: 51798; 81003; 99212 ==